=== PATIENT | male | born 1960 | race Caucasian/White ===

== ENCOUNTER 2024-04-21 21:30 | Inpatient (IN) | payer BC, SELFPAY ==
[2024-04-21] VITALS (32 sets, daily range): BP systolic 146–240; BP diastolic 77–141; BMI 24.7
[2024-04-21 17:46] LABS: % Basophils 0.6 % (0-2); % Eosinophils 2.7 % (0-6); % Immature Granulocytes 0.2 % (0-0.5); % Monocytes 8.1 % (1.7-9.3); % Neutrophils 61.4 % (42.2-75.2); Absolute Basophils 0.1 10^3/uL (0-0.2); Absolute Eosinophils 0.3 10^3/uL (0-0.7); Absolute Lymphocytes 2.7 10^3/uL (1.2-3.4); Absolute Monocytes 0.8 10^3/uL (0.1-0.6); Absolute Neutrophils 6.1 10^3/uL (1.4-6.5); Hematocrit 47.4 % (39.0-52.0); Mean Corp Hgb Conc. 35.9 g/dL (33.0-37.0); Mean Corpuscular Hgb 32.1 pg (27.0-31.0); Mean Corpuscular Volume 89.4 fL (80.0-94.0); Mean Platelet Volume 9.4 fL (7.4-10.4); Nucleated Red Blood Cells % 0 % (-); Platelet Count 300 10^3/uL (130-400); Red Cell Dist. Width 13.6 % (11.5-14.5)
[2024-04-21 18:04] LABS: ALT (SGPT) 26 U/L (0-50); AST (SGOT) 30 U/L (17-59); Albumin 4.8 g/dl (3.5-5.0); Alkaline Phosphatase 93 U/L (38-126); Blood Urea Nitrogen 12 mg/dl (9-20); Calcium 9.8 mg/dl (8.4-10.2); Carbon Dioxide 26 mmol/L (22-30); Chloride 106 mmol/L (98-107); Estimated Creatinine Clearance 81 ml/min; Glucose 96 mg/dl (70-99); Potassium 3.9 mmol/L (3.5-5.1); Sodium 140 mmol/L (135-145); Total Bilirubin 0.5 mg/dl (0.2-1.3); Total Protein 7.1 g/dl (6.3-8.2); eGFR > 60.00
--- NOTE | 2024-04-21 18:05 | ED.GENMED ---
History of Present Illness
General
Chief Complaint: Blood Pressure Problem
Source: patient
Exam Limitations: none
Time Seen by Provider: 04/21/24 17:59
History of Present Illness
History of Present Illness:
See MDM
Past History
Past History
ED Past Medical History: None
ED Past Surgical History: None
Social History
Tobacco: Smoker
Alcohol: None
Phy Exam
Physical Exam
Physical Exam:
See MDM
Scores
NIH Stroke Score
Level of Consciousness: 0 - Alert
LOC Questions: 0-Answers both correctly
LOC Commands: 0-Performs both correctly
Best Horizontal Gaze: 0-Normal
Visual Mancini: 0=Normal, no visual loss
Facial Palsy: 0=Normal, symmetrical
Motor - Right Arm: 1=Drift < 10 seconds
Motor - Left Arm: 0=No drift 10 seconds
Motor - Right Le-No drift 5 seconds
Motor - Left Le-No drift 5 seconds
Limb Ataxia: 0-Absent
Sensation: 0-Normal
Best Language: 0-No aphasia
Dysarthria: 1-Mild slurring
Extinction and Inattention: 0-No abnormality
Total Score:: 2
Course
Orders/Labs/Results
Orders:
Orders
04/21/24 17:39
CMP [Comprehensive Metabolic Panel] Urgent
Complete Blood Count/With Diff Urgent
04/21/24 17:45
EKG [Electrocardiogram (*1)] Urgent
Reason for Study: Tachycardia
EKG- Treatment ONCE
04/21/24 18:04
CT Head W/o Iv Contrast Urgent
Comment:
Reason For Exam: R side weakness
Labetalol HCl [Trandate] 10 mg IV NOW STA
04/21/24 19:40
Labetalol HCl [Trandate] 10 mg IV NOW STA
04/21/24 19:58
Aspirin Chewable [Low Strength Aspirin] 324 mg PO NOW STA
Clopidogrel Bisulfate [Plavix] 75 mg PO NOW STA
04/21/24 20:08
Nicardipine 40 mg/200 ml [Cardene] 40 mg in 200 ml IV NOW
Initial dose in mg/hr, then titrate:: 5
Titrate to keep:: BP < 180/105 mmHg
Titrate by mg/hr:: 2.5 mg/hr
Frequency of titrations (minutes):: 5-15 minutes
Maximum dose in mg/hr:: 15
Begin to taper infusion when:: Remained at goal for 2hrs
Taper by mg/hr:: 2.5 mg/hr
Frequency of taper (minutes) if patient maintains goal:: 15-30 minutes
Taper to off?: Yes
If infusion off & no longer maintaining goal:: Contact Provider
Abnormal Lab Results
04/21/24
17:39
MCH 32.1 H pg
(27.0-31.0)
Absolute Monos (auto) 0.8 H 10^3/uL
(0.1-0.6)
04/21/24 17:39
04/21/24 17:39
Vital Signs
Initial and Last Documented VS:
Initial Vital Signs
BP
221/141
04/21/24 17:31
Last Documented Vital Signs
Temp Pulse Resp BP Pulse Ox
98.3 F 67 16 209/110 95
04/21/24 17:33 04/21/24 20:01 04/21/24 20:01 04/21/24 20:01 04/21/24 20:01
MDM/Problems Addressed
Differential Diagnosis Includes:
HPI and MDM Narrative:
63-year-old male presenting for evaluation of right-sided weakness and tingling that occurred Wednesday. Patient states it only lasted for 3 hours. Patient was seen at urgent care and sent to the emergency department. On arrival, patient found to
be very hypertensive. Patient denies prior history of hypertension. He is not on medicines. He is an active smoker. Patient believes this is whitecoat syndrome. Although acknowledge that, I discussed that his blood pressure is probably too high
to be blamed on whitecoat syndrome. Will give dose of labetalol. He does have mild drift on the right with dysarthria as well. Given duration of symptoms, he is not a TNK candidate
Physical exam
General: Well appearing and non-toxic
HEENT: protecting airway
Neck: appears supple
CV: No evidence of cyanosis. Regular rate and rhythm
Resp: No accessory muscle use
Abd: Non-distended
Extremities: No deformities
Neuro: alert. Mild drift to the right Arm. Mild dysarthria
Psych: Normal affect
Skin: Intact
Problems Addressed including Acute and Chronic Conditions affecting care:
1. Hypertension
Acuity: acute
Prognosis: unstable
Details: Given the concern for hypertension emergency, will give dose of IV labetalol
2. CVA
Acuity: acute
Prognosis: unstable
Details: Given the mild drift on the right, will obtain CT head
Updates
CT consistent with multiple chronic and now with subacute strokes. Blood pressure still greater than 200/100 despite 2 doses of IV labetalol. Will place on nicardipine drip with concern for hypertension emergency. Patient given aspirin and plavix
Differential Diagnosis (but not limited to): Stroke, hypertension emergency, intracranial
Testing considered: CT angiogram
Drug therapy (if applicable): OTC meds, please see d/c instruction regarding Rx drugs
Amount and/or Complexity of Data Reviewed
Clinical info obtained from: Patient
External data reviewed: N/A
Labs I independently reviewed (but not limited to): WBC normal
Radiology: The CT scan was personally and independently reviewed. In addition, official CT report reviewed.
Pulse Ox: not hypoxic
EKG independently reviewed: Sinus rhythm, normal axis, no STEMI
Public Space Attendant: Sinus rhythm
Critical Care: The high probability of a clinically significant, sudden or life threatening deterioration of the neurovascular system(s) required my full and direct attention, intervention and personal management. The aggregate critical care time
was 33 minutes. This time is in addition to time spent performing reported procedures but includes the following:
[x] Data Review and interpretation
[x] Patient assessment and monitoring of vital signs
[x] Documentation
[x] Medication orders and management
Risk of Complication:
Social Determinants of health: Good social support
Discussed with other providers: Hospitalist
Escalation of Care includes Admit/Obs: Given the subacute strokes with uncontrolled blood pressure, will admit on nicardipine drip
Occasional wrong word or 'sound a like' substitutions may have occurred due to the inherent limitations of voice recognition software. Read the chart carefully and recognize, using context, where substitutions have occurred.
*Critical Care Note
Total Time (30-74mins, 75-104mins- exclusive of procedures): 33 min
ED Attending Note
-
Portions of this chart may have been created with voice recognition software.� Occasional wrong word or��sound alike� substitutions may have occurred due to the inherent limitations of voice recognition software.
Discharge Plan
Departure
Patient Disposition: Admit
Date of Disposition: 04/21/24
Time of Disposition: 20:13
Admit to: Telemetry
Presentation/result/management discussed w/ accepting MD/DO: Hospitalist
Discharge Problem:
Hypertensive emergency, Acute CVA (cerebrovascular accident)
Prescriptions:
No Action
No Current Medications
0
Interventions
Interventions:
*Risk Screen - Suicide Last Done: 04/21/24 17:33
*General Assessment Last Done: 04/21/24 17:33
*Neglect/Abuse Screening Last Done: 04/21/24 17:33
ED- Fall Risk Assessment Last Done: 04/21/24 17:33
*ED COVID-19 Vaccine History Last Done: 04/21/24 17:33
ED- Pulmonary Assessment Last Done: 04/21/24 17:39
ED- Neurological Assessment Last Done: 04/21/24 17:40
ED- Cardiac Assessment Last Done: 04/21/24 17:39
Discharge Date and Time
Print Language: TURKMEN
[2024-04-21] MEDS: TRANDATE 10 MG IV ×2 (18:08→19:42)
[2024-04-21] MEDS: LOW STRENGTH ASPIRIN 324 MG PO (20:25)
[2024-04-21] MEDS: PLAVIX 75 MG PO (20:25)
[2024-04-21] MEDS: CARDENE 200 IV (20:31)
--- NOTE | 2024-04-21 21:20 | HPS.HSE ---
Family Physician
-
Family Physician: Yina Nails
Chief Complaint
-
R sided weakness
History of Present Illness
Patient is a 63y M with PMH significant for hypertension who presents to ED complaining of right sided numbness / weakness x 3 days. Patient states that he woke Wednesday Am with pins and needles in the R arm. He felt that her had 'slept
funny' and waited for his symptoms to improve. He went to work and his co-workers expressed concern that he may have had a stroke. Patient notes that he had RUE clumsiness / ataxia and was 'limping'. He was seen at a [facility] and advised
that they could not address his symptoms / concerns - but patient did not present to a hospital / ED at that time. 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 Today at work his co-workers again encouraged him to seek
attention. He again went to an Urgent Care and this time an ambulance was called to bring him to the ED.
Patient complains of R arm and leg numbness and tingling. He complains of ataxia / clumsiness and mild weakness. He denies any headache, vision changes, etc.
He denies any prior history of similar symptoms.
Upon presentation to the ED, patient was noted to be markedly hypertensive with BP peak at 240/135.
Currently he states that his RUE feels somewhat improved from prior.
He notes that he has an annual physical and typically has to have his BP checked 'a few times' before it is 'OK'.
He is not on any current medications.
Medical History
Past Medical History
Past Medical History: Reports Other
Additional Past Medical History:
Hypertension
Past Surgical History: Reports Other
Additional Past Surgical History:
Dental Procedures
Social History
Tobacco: Smoker (Current every day smoker.)
Alcohol: Occasional
Drug: None
Family History
Family History: Other (Mother: Renal Cancer, HTN Father: Pancreatic Cancer, HTN Brother / Sister: HTN)
Allergies / Home Medications
Allergies reflects when Allergies were last updated in [facility].
Home Medications with original date entered in [facility]
Allergy/Medication List:
Allergies
Allergy/AdvReac Type Severity Reaction Status Date / Time
No Known Allergies Allergy Unverified 04/21/24 17:44
Home Medications
No Meds [No Current Medications] 04/21/24
Review of Systems
-
History Source: Patient
A 12 point ROS was completed and negative except as noted: Yes
Constitutional: Denies Fever or Chills
EENT: Denies Sore Throat
Respiratory: Denies Cough or Trouble Breathing
Cardiac: Denies Chest Pain or Palpitations
Abdomen/GI: Denies Abdominal Pain, Nausea, Vomiting or Diarrhea
: Denies Dysuria, Frequency or Flank Pain
Musculoskeletal: Denies Joint Pain or Edema
Neurological: Reports Weakness, Numbness and Other (Ataxia); Denies Dizzy or Headache
Psych: Denies Depression or Anxiety
Physical Exam
Vital Signs
Vital Signs
Temp Pulse Resp BP Pulse Ox
98.3 F 88 19 171/102 99
04/21/24 17:33 04/21/24 21:15 04/21/24 21:15 04/21/24 21:15 04/21/24 21:15
Physical Exam
General: Other (63y M in no acute distress. )
HEENT: Moist mucous membranes and PERRLA
Respiratory: Clear; No Wheezes, Rales or Rhonchi
Cardiac: S1/S2 and Regular Rhythm; No Murmur
GI: Soft, Non Tender, Non Distended and Normal Bowel Sounds
Musculoskeletal: No Clubbing, No Cyanosis and No Edema
Neuro: AO x 3 and Other (Weakness of the RUE and RLE compared to the L (3-4/5). Ataxia especially of the RUE. No evident sensory deficit. Facial features somewhat asymmetric, but smile is symmetric and tongue extends to midline.)
Laboratory Results
-
04/21/24 17:39
04/21/24 17:39
Laboratory Results
Total Bilirubin 0.5 mg/dl (0.2-1.3) 04/21/24 17:39
AST 30 U/L (17-59) 04/21/24 17:39
ALT 26 U/L (0-50) 04/21/24 17:39
Alkaline Phosphatase 93 U/L (38-126) 04/21/24 17:39
Troponin I Cancelled 04/21/24 20:50
Impression/Plan
-
A/P: Patient is a 63y M with no known PMH who presents to ED complaining of R sided weakness and ataxia x 3 days.
Subacute CVA
Hypertensive Emergency
Evidence for Multiple Prior CVAs
- Admit to ICU for further evaluation and treatment.
- Continue nicardipine and titrate as needed for improvement in BP.
- ASA / Plavix now and daily.
- Patient is well out window for consideration of thrombolytic therapy.
- Suspect that CVAs are BP mediated based on location / history / etc.
- Will likely require multidrug regimen for BP control.
- Neuro eval in the AM for additional recommendations.
- Check MRI, CUS, Echo, etc.
- Follow for changes in neurologic exam.
- Begin statin therapy. Check lipid panel, A1C, etc.
- PT / OT / PMR evaluations.
Tobacco Use Disorder
- Affects all aspects of care and certainly his risk for future CVA.
- Patient encouraged to stop smoking entirely.
DVT Prophylaxis: SCDs
Code Status: Full
[2024-04-21 21:55] LABS: Troponin I < 0.012 ng/ml
[2024-04-21 22:06] LABS: Urine Albumin Trace (Neg - Trace); Urine Bilirubin Negative (Negative); Urine Character Slightly Cloudy (Clear); Urine Color Yellow; Urine Glucose Negative (Negative); Urine Ketone Trace (Negative); Urine Leukocyte Trace (Negative); Urine Nitrite Negative (Negative); Urine Occult Blood Negative (Negative); Urine Urobilinogen Negative (Neg - 1+)
[2024-04-21 22:14] LABS: Urine Amorphous Seen; Urine Bacteria Many (Negative); Urine Red Blood Cell 0-2 /HPF (0-2)
--- NOTE | 2024-04-21 23:30 | PTCARENOTE ---
Pt arrived to ICU room 3371 from ER via stretcher at 2210. Received pt on Cardene drip at 5mg/hr. Pt A/O x4, pleasant and cooperative with care. Denies pain. NIHSS done, score = 3, see Stroke Neurocheck/NIHSS flowsheet for further details on
neurological assessment and NIHSS results. See nursing shift assessment flowsheet for full physical assessment details. SR 80s on monitor. SpO2 91-93% on RA. Admission database completed. Call mesa and personal items within reach.
[2024-04-22] VITALS (46 sets, daily range): BP systolic 128–195; BP diastolic 73–117; PULSE 90; O2SAT 94–95; BMI 24.2
[2024-04-22 04:37] LABS: % Basophils 0.6 % (0-2); % Eosinophils 2.2 % (0-6); % Immature Granulocytes 0.4 % (0-0.5); % Monocytes 9.6 % (1.7-9.3); % Neutrophils 66.2 % (42.2-75.2); Absolute Basophils 0.1 10^3/uL (0-0.2); Absolute Eosinophils 0.2 10^3/uL (0-0.7); Absolute Lymphocytes 2.3 10^3/uL (1.2-3.4); Absolute Monocytes 1.1 10^3/uL (0.1-0.6); Absolute Neutrophils 7.4 10^3/uL (1.4-6.5); Hematocrit 47.6 % (39.0-52.0); Hemoglobin 16.7 g/dL (13.0-18.0); Mean Corp Hgb Conc. 35.1 g/dL (33.0-37.0); Mean Corpuscular Hgb 32.4 pg (27.0-31.0); Mean Corpuscular Volume 92.4 fL (80.0-94.0); Mean Platelet Volume 9.6 fL (7.4-10.4); Nucleated Red Blood Cells % 0 % (-); Platelet Count 263 10^3/uL (130-400); Red Blood Cell Count 5.15 10^6/uL (4.70-6.10); Red Cell Dist. Width 13.3 % (11.5-14.5); White Blood Cell Count 11.1 10^3/uL (4.8-10.8)
--- NOTE | 2024-04-22 04:38 | PTCARENOTE ---
Physical and neurological assessments unchanged. Pt has been resting with eyes closed most of the night although states that he has not gotten much sleep. Cardene infusion stopped at approx 0100, BP has been 140s-160s systolic / 70s-80s diastolic
since then. SR 60s/SB 50s on monitor, as low as HR of 54. SpO2 96% on RA. Stroke packet provided, although not reviewed with pt this shift d/t pt stating he had been up since 4am and just wanted to go to sleep.
[2024-04-22 04:45] LABS: INR 1.12; PT 14.2 Sec (11.4-14.6)
[2024-04-22 04:46] LABS: APTT 33.7 Sec (23.4-35.0)
[2024-04-22 05:01] LABS: Blood Urea Nitrogen 10 mg/dl (9-20); Calcium 9.2 mg/dl (8.4-10.2); Carbon Dioxide 24 mmol/L (22-30); Chloride 106 mmol/L (98-107); Estimated Creatinine Clearance 104 ml/min; Glucose 107 mg/dl (70-99); HDL Cholesterol 42 mg/dl; LDL Cholesterol, Calculated 107 mg/dl; Potassium 3.5 mmol/L (3.5-5.1); Sodium 138 mmol/L (135-145); Total Cholesterol 168 mg/dl (50-199); Triglyceride 96 mg/dl (10-149); Very Low Density Lipoprotein 19 mg/dl (0-30); eGFR > 60.00
--- NOTE | 2024-04-22 06:25 | PTCARENOTE ---
Pt's BP in 190s, restarted Cardene drip at approx 0620 at 2.5mg/hr.
--- NOTE | 2024-04-22 07:33 | CON.INTV ---
Consultation
Consultation Request
Date/Time Consultation Requested: 04/22/2024-7:30 AM
Date/Time Consultation Performed: 04/22/2024-7:30 AM
Requesting Provider: Hospitalist
Performing Provider: Dr. Lan
Reason for Consultation: CVA and hypertensive emergency
Medical History
-
Chief Complaint: Slurred speech and weakness
History of Present Illness:
63-year-old male with a history of hypertension, smoker who presented with 3 days of right-sided numbness, weakness, and somewhat slurred speech felt to have CVA and noted to have severe hypertension-septic tank setter consulted for hypertensive
emergency/evolving CVA/critical care management 04/22/2024. He feels slightly improved but still has some dysarthria and right upper extremity weakness. He smokes daily just under a pack a day. He denies any shortness of breath at rest, productive
cough, chest pain, chest tightness, weakness, mopped assist, abdominal pain, nausea, vomiting, lower extremity swelling.
Past Medical History
Past Medical History: None (Hypertension. Cigarette smoker. Does not frequent physicians often-goes to urgent care when needed, last saw primary care over 3 years ago.)
Social History
Tobacco: Smoker ([id number])
Alcohol: Occasional
Drug: None
Occupational Exposures: No known asbestos exposure
Environmental Exposures: No known tuberculosis exposure
Family History
Family History: Other (Mother-renal cancer and hypertension. Father-pancreatic cancer and hypertension. Brother and sister with hypertension.)
Allergies / Home Medications
Allergies
Allergy/AdvReac Type Severity Reaction Status Date / Time
No Known Allergies Allergy Unverified 04/21/24 17:44
Home Medications
�Medication �Instructions �Recorded �Confirmed �Last Taken �Type
No Meds [No Current Medications] 04/21/24 04/21/24 Unknown History
Review of Systems
-
Unable to Obtain full review of systems at this time due to: Other (Per HPI)
Vitals / Labs / Diagnostic Testing
Vital Signs
Temp Pulse Resp BP Pulse Ox
98.0 F 61 18 195/93 94
04/21/24 22:20 04/22/24 06:17 04/22/24 06:17 04/22/24 06:17 04/22/24 06:17
Lab Data
04/22/24 04:28
04/22/24 04:23
Laboratory Results
04/22/24
04:23
PT 14.2
INR 1.12
APTT 33.7
Diagnostic Testing:
Physical Exam
-
Exam:
Well-nourished and well-developed in no apparent distress
HEENT-atraumatic, normocephalic
Neck-supple, no JVD, no bruit
Heart-regular rate and rhythm-no murmurs, rubs or gallops
Chest-clear to auscultation, no wheezes, crackles
Back-no tenderness
Abdomen-soft, nontender, nondistended, no hepatosplenomegaly
Extremities-no cyanosis, clubbing, edema and good peripheral pulses
Integument-intact, no rashes, lesions or ecchymosis
Neurologically alert and oriented, mild right upper extremity weakness and mild dysarthria
Assessment
-
63-year-old male with a history of hypertension, smoker who presented with 3 days of right-sided numbness, weakness, and somewhat slurred speech felt to have CVA and noted to have severe hypertension-septic tank setter consulted for hypertensive
emergency/evolving CVA/critical care management 04/22/2024.
ZMR-[id number]-fguuvcdn over 3 days
Hypertensive emergency
Tobacco use disorder
Mild leukocytosis-WBC 11
Mild hyperglycemia
Conditions present prior to admission:
Hypertension.
Cigarette smoker.
Does not frequent physicians often-goes to urgent care when needed, last saw primary care over 3 years ago.
Plan
Patient will be admitted to medical intensive care
Supplemental oxygen if needed
Monitor for end organ effect of severe hypertension
Hydralazine as needed
Labetalol as needed
Begin nicardipine drip-attempt to wean
Consider Nephrology consultation if hypertension persists
Consider workup of secondary causes including renal vascular/primary hyperaldosteronism/Ellis's/pheochromocytoma/etc. if hypertension is difficult to control
Subacute CVA noted
Monitor blood pressure closely
Neurology evaluation
CT head summarized below
Check MRI head/MRA head and neck
Neurochecks
Goal systolic blood pressure less than 180, diastolic BP less than 105
Check lipid panel
Check echocardiogram
Check carotid circulation
Atorvastatin 80 mg daily if tolerated
Monitor blood sugar-maintain blood sugar as needed and keep between 140-180
Speech therapy/occupational/physical therapy evaluation
Smoking cessation counseling provided
DVT prophylaxis
Early nutrition
Early mobilization
Outpatient pulmonary evaluation recommended-ongoing smoking cessation counseling, yearly low-dose lung cancer screening CT, PFTs, possible inhalers
Critical care statement: A total of 50 minutes of critical care time was provided for this patient today. This includes management of unstable vital signs, evaluation of the patient at bedside, reviewing the patient's pertinent medical records
including radiographs, microbiology, laboratory evaluations, and discussion with primary team, consultants, pharmacy, nutrition, physical therapy, case management, charge nurse, critical care nursing, and respiratory therapy.
Diagnostic data:
Chest x-ray 04/22/2024-NAD
CT head 04/21/2024-no acute intracranial hemorrhage, chronic microvascular white matter ischemic disease, multiple chronic lacunar infarcts, right brigida age indeterminate but likely subacute measuring 7 mm
Data Reviewed
-
EKG: Report reviewed by me
Radiology: Report reviewed by me
CT Scan: Report reviewed by me
Labs: Labs reviewed by me
Old Records: Reviewed
Critical Care Time (in minutes): 50
--- NOTE | 2024-04-22 08:04 | W.PN.HOSP.TC ---
Today's Communication/Plan
-
Discontinue nicardipine
Start Procardia, HCTZ
PT/OT
Neurology consult
Assessment / Plan
Assessment / Plan
Gen-AAOx3, NAD
HEENT-NC, AT, anicteric, clear oral mm
Neck-supple
CV-reg, no M, +S1/S2
Lungs-clear B/L
Abd-soft, NT, ND
Ext-no edema
Musculoskeletal-no cyanosis, clubbing
Skin-warm and dry, well tanned skin
Neuro-4+ out of 5 right-sided motor strength, right upper extremity dysmetria on [id number] testing
Psych-calm, cooperative
Hypertensive emergency - possible subacute infarction in the right brigida on CT scan. CT also shows multiple chronic right-sided lacunar infarcts, chronic microvascular white matter ischemic disease.
Not on blood pressure meds at home. Has not seen his physician in 3 years. Does not check his blood pressures at home either.
Currently on nicardipine drip 2.5 mg an hour. Will discontinue and start Procardia XL 30 mg daily, HCTZ 25 mg daily.
Extensive discussion with patient regarding strict blood pressure control moving forward, close outpatient follow-up with his primary care doctor, measuring his blood pressures at home closely and monitoring with intensive lifestyle changes
including dietary modification and exercise. We discussed the importance of blood pressure control for cardiovascular risk reduction including prevention of further strokes, heart disease, kidney disease and eye disease.
Await brain MRI. Consult neurology. PT/OT. Echocardiogram ordered.
Started on atorvastatin, aspirin, Plavix last night.
LDL 107, total cholesterol 168, HDL 42.
Essential hypertension -untreated. See above.
Tobacco dependence
Full code
Anticipated Discharge: > 48 hours
Subjective/Interval History
-
Date of Service: April 22, 2024
Patient seen and examined. Still with right-sided symptoms, weakness and numbness. Denies headache.
Objective Data
-
Labs:
Laboratory Results
04/22/24 04/22/24
04:23 04:28
WBC 11.1 H
Hgb 16.7
Hct 47.6
Plt Count 263
PT 14.2
INR 1.12
APTT 33.7
Sodium 138
Potassium 3.5
Chloride 106
Carbon Dioxide 24
BUN 10
Creatinine 0.7
Glucose 107 H
Calcium 9.2
Vital Signs:
Vital Signs
Temp Pulse Resp BP Pulse Ox
98.0 F 61 18 195/93 94
04/21/24 22:20 04/22/24 06:17 04/22/24 06:17 04/22/24 06:17 04/22/24 06:17
I&O
04/21/24 04/22/24 04/23/24
06:59 06:59 06:59
Intake Total 56.25 / 56.25
Output Total 400 / 400
Balance -343.75 / -343.75
Review of Systems
-
History Source: Patient
All other systems: Reviewed and negative
[2024-04-22 08:14] LABS: Glycohemoglobin (HgbA1c) 5.6 % (4.0-5.6)
[2024-04-22] MEDS: PROCARDIA XL (EXTENDED RELEASE) 30 MG PO (08:16)
[2024-04-22] MEDS: ORETIC 25 MG PO (08:16)
[2024-04-22] MEDS: KCL 40 MEQ PO (08:17)
[2024-04-22] MEDS: PLAVIX 75 MG PO (08:17)
[2024-04-22] MEDS: LOW STRENGTH ASPIRIN 81 MG PO (08:17)
--- NOTE | 2024-04-22 08:46 | PTCARENOTE ---
Rec'd pt at 0700. Pt AAOx3, mild facial droop with mild slurred speech. Follows commands, KOHLER with equal strength. Pt states that the 'pins and needles and weakness' on right right side has subsided. NIHSS-2. Monitor SR. Cardene gtts infusing at
2.5mg/hr, PO BP meds ordered and given in order to dc Cardene gtts. Pt updated on plan of care, verbalized understanding. Lungs CTA. +BS, abd soft/nt. Ate 100% diet. Voiding yellow urine via urinal. Pt resting comfortably in bed at this time.
--- NOTE | 2024-04-22 14:29 | PTCARENOTE ---
~1200 pt to MRI via wheelchair on monitor. Tolerated test well. Pt sitting OOB in chair at this time, gait slightly unsteady. Ate 100% lunch. Neuro assessment unchanged.
--- NOTE | 2024-04-22 15:03 | PTOTSP ---
SPEECH THERAPY SPEECH/LANGUAGE/COGNITIVE COMMUNICATION AND SWALLOW EVALUATION:
Patient exhibits clinical signs of oropharyngeal dysphagia, likely acutely related to subacute infarct in Right brigida. Patient appears to be tolerating Regular texture diet and thin liquids without signs of aspiration at this time, though pt endorsed
signs of aspiration with increased size/rate of intake of liquids. Patient remains at risk for aspiration given subacute CVA in brigida. Recommend continue Regular texture diet, thin liquids with aspiration precautions in place including: Upright
positioning; Small single sips/bites; Slow rate of intake; Eat only when alert; Limit distractions. Close monitoring for signs of aspiration; D/c oral diet if any signs/symptoms of aspiration or decline in mental or respiratory status. Recommend
aggressive oral care 3x/day and increased mobility as able/tolerated to reduce risk for nosocomial infection. Medications whole with liquid, one at a time. Should patient exhibit signs concerning for aspiration, consider VSE to further assess
patient's swallow function. Speech therapy to follow, assess diet tolerance and modify as appropriate, monitor labs/CXR/temperature, determine indication for instrumental assessment as warranted, continue to provide education regarding aspiration
risks/precautions, and continue to provide diagnostic swallow therapy as appropriate.
Patient exhibits mild dysarthria with associated mildly reduced articulatory accuracy with grossly intact intelligibility. Cognitive communication skills appeared to be grossly WFL, though question impaired judgement which may be at patient's
baseline level of functioning. Voice, expressive language, and receptive language skills appeared to be WFL. Speech therapy is indicated at the acute care level. Speech therapy to follow.
RECOMMEND:
1) Regular texture diet, thin liquids with aspiration precautions in place
2) Aspiration precautions: Upright positioning; Small single sips/bites; Slow rate of intake; Eat only when alert; Limit distractions. Close monitoring for signs of aspiration; D/c oral diet if any signs/symptoms of aspiration or decline in mental
or respiratory status. Recommend aggressive oral care 3x/day and increased mobility as able/tolerated to reduce risk for nosocomial infection
3) Medications whole with liquid, one at a time
4) Should patient exhibit signs concerning for aspiration, consider VSE to further assess patient's swallow function
5) Speech therapy to follow for speech and swallow therapy
[2024-04-22] MEDS: LIPITOR 40 MG PO (17:10)
--- NOTE | 2024-04-22 17:16 | PTCARENOTE ---
No changes in assessment, pt remains OOB in chair watching tv at this time.
--- NOTE | 2024-04-22 20:13 | PTCARENOTE ---
Assumed care of pt at 1900. Pt is A/O x4 but has an odd affect and is almost child-like at times with how he interacts, as if he has an intellectual disability to some degree. At start of shift pt was found to be grossly incontinent with a saturated
brief and pad--when asked if he knows when he has to urinate, pt stated 'yeah'. Unsure why patient did not verbalize to staff that he was wet. Pt also laughs at inappropriate times about things that are not meant to be funny, such as assessing his
pupils or his muscle strength. NIHSS done, pt scored a 2 for mild slurring and mild facial droop. Pt endorses that his right side feels weaker but when assessing muscle strength both sides seem equal to each other. See Stroke Neurocheck/NIHSS
flowsheet for full neuro assessment details. Pt is otherwise pleasant and cooperative with care and able to follow commands. Physical assessment completed, see nursing shift assessment flowsheet for full details. SR 60s-70s on monitor. Condom cath
placed on patient to help with urinary incontinence. Call mesa and personal items within reach. Bed alarm activated.
--- NOTE | 2024-04-22 21:29 | W.PN.UPDATE ---
Update Note
Progress Note Update
Updated neurologist Dr. Vega of MRI results. Recommendations received maintain SBP 120-160. Patient currently does not have any new sign/symptoms of stroke or headache.
--- NOTE | 2024-04-22 23:49 | CON.NEURO4 ---
Consultation - Neurology 4
-
CONSULTING PHYSICIAN: Gary Swift MD (Neurology)
REFERRING PHYSICIAN: Hospitalist
DICTATED BY: Gary Swift MD
DATE/TIME OF REQUEST: 04/21/2024
DATE/TIME OF CONSULTATION: 04/22/2024 1030
Reason for Consultation: Weakness
History of Present Illness:
This is a 63 year old right handed male who was admitted to the hospital with (chief complaint) of right sided weakness. He is a smoker gives a h/o uncontrolled HTN who presents to ED complaining of right sided numbness / weakness x 3
days(Wednesday). Patient states that he woke Wednesday morning with pins and needles in the R arm. He felt that he had 'slept on his arm ' and waited for his symptoms to improve. He went to work and his co-workers expressed concern that he may
have had a stroke. Patient notes that he had RUE clumsiness / ataxia and was 'limping'. He was seen at a [facility] and advised that they could not address his symptoms / concerns - but patient did not present to a hospital / ED at that time.
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 Yesterday at work his co-workers again adviced him to seek attention. He again went to an Urgent Care and this time an ambulance was called to bring him to the ED.
Patient complains of R arm and leg numbness and tingling. He complains of ataxia / clumsiness and mild weakness. He denies any headache, vision changes, speech impediment, dizziness, near syncope.
He denies any prior history of similar symptoms.
Upon presentation to the ED, patient was noted to be markedly hypertensive with BP peak at 240/135.
Currently he states that his RUE feels somewhat improved from prior.
He notes that he has an annual physical and typically has to have his BP checked 'a few times' before it is 'OK'.
He is not on any medications.
At the time of my exam pat is awake alert oriented with normal speech and minimal right sided weakness. He is on
Past Medical History: HTN
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
Family History: HTN
Social History: Smoker lives at home
Allergies: NKA
Home Medications: None
Review of Symptoms:
Patient denies any fever, headache, chest pain, shortness of breath, GI or symptoms.
�Per the HPI.�All systems are reviewed negative except above.
Vital Signs:
The patient has a
Temp Pulse Resp BP Pulse Ox
98.0 F 61 18 195/93 94
Physical Exam:
The patient is afebrile, heart sounds S1 and S2 are (regular / irregular), and chest is clear to auscultation bilaterally.
- If not clear, describe.
NIH Stroke Scale (if applicable):
I performed the NIH stroke scale on the patient on (date & time). The patient scored ( ) points on the NIH stroke scale assessment, which were assigned as follows:
Neurologic Examination:
The patient is awake, alert and oriented x 3. (He/She) is able to follow commands and answer questions appropriately. There is no aphasia or dysarthria. On cranial nerve assessment, pupils are 3 mm bilateral, round and reactive to light and
accommodation. Visual graham are full. Extraocular movements are intact. Facial sensations are intact and bilaterally symmetrical, there is no facial asymmetry. Hearing is intact bilaterally to normal conversation volume. Tongue palate and uvula
are midline. Sternocleidomastoid strengths are full bilaterally.
Motor strengths are 5/5 bilateral upper and lower extremities. There is right pronator drift. No involuntary movement noted.
Deep tendon reflexes are + bilateral upper and lower extremities and Right Babinski .
Sensations of pain, touch, temperature and vibration are intact and bilaterally symmetrical. There was no extinction noted on double simultaneous stimulation. Coordination is intact by finger to nose bilaterally. Rombergs sways. Gait is unsteady
Lab Results: Addendum
Neuro Imaging: MRI Brain revealed
1. 9 mm ACUTE ISCHEMIC INFARCT in the LEFT FRONTAL LOBE SANTIAGO RADIATA.
2. 5 mm acute to subacute ischemic infarct in the anterior right basal ganglia.
3. 4.8 mm and 1.3 cm subacute ischemic infarcts in the left santiago radiata.
4. Small chronic ischemic infarcts in the right santiago radiata, thalami, and brigida.
5. Moderate white matter leukoaraiosis in both cerebral hemispheres.
6. Mild cerebral and cerebellar volume loss.
7. Moderate amount of minute intraparenchymal microhemorrhages in the brainstem and cerebellum consistent with HYPERTENSIVE MICROANGIOPATHY.
MRA
1. Mild atherosclerotic plaque in both proximal internal carotid arteries causing less than 25% diameter stenosis.
2. 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
3. 70% diameter stenosis at the origin of the Right Vertebral artery.
4. Mild atherosclerotic plaque in both intracranial internal carotid arteries causing less than 25% diameter stenosis.
5. Mild hypoplasia of the A1 segment of the right anterior cerebral artery
Impression:
Mr. VAN LOERA is a 63 year old M who has presented to the hospital with (symptoms/chief complaint) of right sided weakness secondary to left MCA infarction in the left frontal lobe with hypertensive crisis
Patient has the following risk factors for their symptoms: Uncontrolled HTN, Smoker
Recommendations:
1. BP control: Keep systole 120-160/Diastolic 80-90
2. Ecasa 81
3. Plavix 75
4. High intensity Statin:Lipitor 80mg
5. PT/OT
6. Echocardiogram
7. MRI/MRA brain
8. Stop smoking
Discussed patient care with: Hospitalist
Vital Signs and Labs
-
Vital Signs and Labs:
Vital Signs
Temp Pulse Resp BP Pulse Ox
36.8 C 63 20 171/81 96
04/22/24 23:02 04/22/24 22:30 04/22/24 22:30 04/22/24 22:30 04/22/24 22:30
Lab Results
04/22/24 04:28
04/22/24 04:23
PT 14.2 Sec (11.4-14.6) 04/22/24 04:23
INR 1.12 04/22/24 04:23
APTT 33.7 Sec (23.4-35.0) 04/22/24 04:23
Sodium 138 mmol/L (135-145) 04/22/24 04:23
Potassium 3.5 mmol/L (3.5-5.1) 04/22/24 04:23
BUN 10 mg/dl (9-20) 04/22/24 04:23
Glucose 107 mg/dl (70-99) H 04/22/24 04:23
Calcium 9.2 mg/dl (8.4-10.2) 04/22/24 04:23
LDL Cholesterol, Calc 107 mg/dl 04/22/24 04:23
Medications
-
Active Medications
Generic Name Dose Route Start Last Admin
Trade Name Freq PRN Reason Stop Dose Admin
Acetaminophen 650 mg 04/21/24 22:26
Acetaminophen 650 Mg Rectal Suppository RECTAL 05/19/24 22:25
Q4HPRN PRN
COLON, mild pain, or temp >100.4F
Acetaminophen 650 mg 04/21/24 22:26
Acetaminophen 325 Mg Tablet PO 05/19/24 22:25
Q4HPRN PRN
COLON, mild pain, or temp >100.4F
Aspirin 81 mg 04/22/24 08:00 04/22/24 08:17
Aspirin 81 Mg Chewable Tablet PO 05/20/24 07:59 81 mg
DAILY MICHAEL Administration
Atorvastatin Calcium 40 mg 04/22/24 18:00 04/22/24 17:10
Atorvastatin (Lipitor) 40 Mg Tablet PO 05/20/24 17:59 40 mg
QPM MICHAEL Administration
Hydrochlorothiazide 25 mg 04/22/24 09:00 04/22/24 08:16
Hydrochlorothiazide 25 Mg Tablet PO 05/20/24 08:59 25 mg
DAILY MICHAEL Administration
Nicardipine/Sodium Chloride 40 mg in 200 mls @ 0 mls/hr 04/22/24 22:45
Cardene IV
PER PROTOCOL MICHAEL
Protocol
Per Protocol
Nifedipine 30 mg 04/22/24 09:00 04/22/24 08:16
Nifedipine 30 Mg Extended Release Tablet PO 05/20/24 08:59 30 mg
DAILY MICHAEL Administration
Sodium Chloride 0 flush 04/21/24 23:00
Sodium Chloride 0.9% (Flush) Syringe IV 05/19/24 22:59
PER PROTOCOL MICHAEL
Home Medications
�Medication �Instructions �Recorded
No Meds [No Current Medications] 04/21/24
[2024-04-23] VITALS (60 sets, daily range): BP systolic 137–179; BP diastolic 64–107; PULSE 100–128; O2SAT 95; BMI 23.6; BMI 23.7
[2024-04-23] MEDS: CARDENE 200 IV ×3 (00:18→08:05)
--- NOTE | 2024-04-23 00:26 | PTCARENOTE ---
Physical assessment and neurological assessments unchanged. After discussing results of MRI with ICU RIGGING SLINGER, she reached out to both restaurant bartender and neurologist. Plan going forward to keep pt's BP between 120-160. Pt was in high 160s-170s, discussed
with ICU RIGGING SLINGER, pt restarted on Cardene infusion shortly after 2237, titrating for aforementioned BP goal, pt currently on 7.5mg/hr. SR 70s-80s on monitor, SpO2 96% on RA.
--- NOTE | 2024-04-23 04:22 | PTCARENOTE ---
Physical and neurological assessments unchanged. Continues on Cardene infusion, now at 10mg/hr. SR 80s-90s on monitor. Bed alarm activated.
[2024-04-23 04:28] LABS: Hematocrit 47.6 % (39.0-52.0); Hemoglobin 17.2 g/dL (13.0-18.0); Mean Corp Hgb Conc. 36.1 g/dL (33.0-37.0); Mean Corpuscular Hgb 31.9 pg (27.0-31.0); Mean Corpuscular Volume 88.3 fL (80.0-94.0); Mean Platelet Volume 9.6 fL (7.4-10.4); Platelet Count 322 10^3/uL (130-400); Red Blood Cell Count 5.39 10^6/uL (4.70-6.10); Red Cell Dist. Width 13.4 % (11.5-14.5); White Blood Cell Count 11.9 10^3/uL (4.8-10.8)
[2024-04-23 04:41] LABS: Blood Urea Nitrogen 16 mg/dl (9-20); Calcium 9.8 mg/dl (8.4-10.2); Carbon Dioxide 22 mmol/L (22-30); Chloride 105 mmol/L (98-107); Estimated Creatinine Clearance 81 ml/min; Glucose 128 mg/dl (70-99); Magnesium 2.1 mg/dl (1.6-2.3); Potassium 3.9 mmol/L (3.5-5.1); Sodium 135 mmol/L (135-145); eGFR > 60.00
[2024-04-23] MEDS: ORETIC 25 MG PO (08:02)
[2024-04-23] MEDS: PROCARDIA XL (EXTENDED RELEASE) 30 MG PO ×2 (08:02→09:27)
[2024-04-23] MEDS: LOW STRENGTH ASPIRIN 81 MG PO (08:10)
--- NOTE | 2024-04-23 09:13 | W.PN.HOSP.TC ---
Today's Communication/Plan
-
Increase Procardia
Assessment / Plan
Assessment / Plan
Gen-AAOx3, NAD
HEENT-NC, AT, anicteric, clear oral mm
Neck-supple
CV-reg, no M, +S1/S2
Lungs-clear B/L
Abd-soft, NT, ND
Ext-no edema
Musculoskeletal-no cyanosis, clubbing
Skin-warm and dry, well tanned skin
Neuro-4+ out of 5 right-sided motor strength, right upper extremity dysmetria on [id number] testing
Psych-calm, cooperative
Hypertensive emergency -in the setting of acute ischemic stroke. Blood pressure much improved, currently on nicardipine 10 mg/hour, Procardia XL 30 mg daily, HCTZ 25 mg daily. Nicardipine drip resumed last evening. Discussed with nursing, will
increase Procardia to 60 mg daily with goal of titrating off nicardipine drip. Once off nicardipine drip can transfer to telemetry.
My suspicion is that patient has a longstanding history of uncontrolled and untreated hypertension. Was not on any medications for blood pressure prior to admission. Has not seen his primary care doctor in years.
Acute ischemic stroke -left frontal lobe, 9 mm. Confirmed on brain MRI. In addition, 5 mm acute to subacute ischemic stroke in the anterior right basal daily. 4.8 mm and 1.3 cm subacute ischemic infarcts in the left santiago radiata. Small chronic
ischemic infarcts in the right santiago radiata, thalami, brigida. Moderate white matter leukoaraiosis in both cerebral hemispheres. Mild diffuse cerebral and cerebellar volume loss. Small to moderate number of tiny intraparenchymal microhemorrhages
in the brainstem and cerebellum consistent with hypertensive microangiopathy.
MRA of head and neck shows mild atherosclerotic plaque in both intracranial internal carotid arteries causing less than 25% diameter stenosis, mild hypoplasia of the A1 segment of the right anterior cerebral artery, 70% diameter stenosis at the
origin of the right vertebral artery.
Continue aspirin, atorvastatin. LDL 107, total cholesterol 168, triglycerides 96, HDL 42.
Echocardiogram pending.
Essential hypertension -untreated. See above.
Tobacco dependence -smoking cessation advised.
Full code
Dispo -anticipate discharge to acute rehab when medically stable. Discussed with patient and he is agreeable.
Anticipated Discharge: 24 - 48 hours
Subjective/Interval History
-
Date of Service: April 23, 2024
Patient seen and examined. No complaints.
Objective Data
-
Labs:
Laboratory Results
04/23/24
04:00
WBC 11.9 H
Hgb 17.2
Hct 47.6
Plt Count 322 D
Sodium 135
Potassium 3.9
Chloride 105
Carbon Dioxide 22
BUN 16
Creatinine 0.9
Glucose 128 H
Calcium 9.8
Vital Signs:
Vital Signs
Temp Pulse Resp BP Pulse Ox
98.7 F 89 20 155/74 94
04/23/24 07:00 04/23/24 07:30 04/23/24 07:30 04/23/24 07:30 04/23/24 07:30
I&O
04/22/24 04/23/24 04/24/24
06:59 06:59 06:59
Intake Total 56.25 / 68.75 976.25 / 976.25
Output Total 400 / 400 500 / 500
Balance -343.75 / -331.25 476.25 / 476.25
Review of Systems
-
History Source: Patient
All other systems: Reviewed and negative
--- NOTE | 2024-04-23 09:24 | W.PN.INTV ---
Today's Communication / Plan
Recommendations
BP control
Cardene wean
Neurology follow-up
Neurochecks continue
Assessment
-
63-year-old male with a history of hypertension, smoker who presented with 3 days of right-sided numbness, weakness, and somewhat slurred speech felt to have CVA and noted to have severe hypertension-salmon troll fisher consulted for hypertensive
emergency/evolving CVA/critical care management 04/22/2024.
WAJ-[id number]-[id number] over 3 days
Hypertensive emergency
Tobacco use disorder
Mild leukocytosis-WBC 11
Mild hyperglycemia
Conditions present prior to admission:
Hypertension.
Cigarette smoker.
Does not frequent physicians often-goes to urgent care when needed, last saw primary care over 3 years ago.
Plan
Remains critically ill with subacute CVAs, difficult to control hypertension on Cardene and microhemorrhages intracranially
Supplemental oxygen if needed
Aspiration precautions
Incentive spirometry
Nebulizers if needed-currently not bronchospastic
Monitor for end organ effect of severe hypertension
Nicardipine continues-attempt to wean
Nifedipine orally initiated
Hydrochlorothiazide orally initiated
Hydralazine as needed
Labetalol as needed
Consider Nephrology consultation if hypertension persists
Consider workup of secondary causes including renal vascular/primary hyperaldosteronism/Ellis's/pheochromocytoma/etc. if hypertension is difficult to control
Subacute CVA noted
Monitor blood pressure closely
Neurology evaluation
CT head summarized below
Brain MRI/MRA 04/22/2024-mild atherosclerotic plaques both internal carotid arteries causing less than 25% stenosis, mild hypoplasia of A1 segment of right anterior cerebral artery, no MRA evidence for large vessel arterial stenosis, multiple small
chronic ischemic infarcts in the santiago radiata, thalami and right brigida
Brain MRI 04/22/24-9 mm acute ischemic infarct in the left frontal lobe santiago radiata, 5 mm acute to subacute ischemic infarct right anterior basal ganglia, 4.8 mm and 1.3 cm subacute ischemic infarct in the left santiago radiata, small chronic
ischemic infarct right santiago radiata, thalami and brigida, moderate white matter leukoaraiosis in both cerebral hemispheres, mild diffuse cerebral and cerebellar volume loss, small to moderate number of tiny intraparenchymal microhemorrhages in the
brainstem and cerebellum consistent with hypertensive microangiopathy
Neurology following-notified of results
Repeat imaging per neurology
Neurochecks continue
Goal systolic blood pressure less than 180, diastolic BP less than 105
Lipid panel-triglycerides 96, total cholesterol 168, LDL 107, HDL 42
Echocardiogram pending
Carotid circulation on MRA without significant stenosis
Anticoagulants per neurology-currently on aspirin, Plavix discontinued
Atorvastatin 80 mg daily if tolerated
Monitor blood sugar-maintain blood sugar as needed and keep between 140-180
Speech therapy/occupational/physical therapy evaluation
Smoking cessation counseling provided
DVT prophylaxis
Early nutrition
Early mobilization
Outpatient pulmonary evaluation recommended-ongoing smoking cessation counseling, yearly low-dose lung cancer screening CT, PFTs, possible inhalers
Critical care statement: A total of 40 minutes of critical care time was provided for this patient today. This includes management of unstable vital signs, evaluation of the patient at bedside, reviewing the patient's pertinent medical records
including radiographs, Cardene drip management, microbiology, laboratory evaluations, and discussion with primary team, consultants, pharmacy, nutrition, physical therapy, case management, charge nurse, critical care nursing, and respiratory
therapy.
Diagnostic data:
Chest x-ray 04/22/2024-NAD
CT head 04/21/2024-no acute intracranial hemorrhage, chronic microvascular white matter ischemic disease, multiple chronic lacunar infarcts, right brigida age indeterminate but likely subacute measuring 7 mm
Subjective Dataa
Subjective Data
Date of Service:
Date of Service: April 23, 2024
Chief Complaint: Copy Center Associate Follow Up and Pulmonary Follow Up
Subjective:
Feels about the same, speech improved, right upper extremity strength also slightly improved, no complaints of shortness of breath, chest pain, abdominal pain
Review of Systems
General: Other (Per HPI)
Objective Data
Data Reviewed
Vital Signs / I&O / Oxygen:
Vital Signs
Temp Pulse Resp BP Pulse Ox
98.7 F 89 20 155/74 94
04/23/24 07:00 04/23/24 07:30 04/23/24 07:30 04/23/24 07:30 04/23/24 07:30
Intake and Output
04/22/24 04/23/24 04/24/24
06:59 06:59 06:59
Intake Total 56.25 / 68.75 976.25 / 976.25
Output Total 400 / 400 500 / 500
Balance -343.75 / -331.25 476.25 / 476.25
SaO2 94
Physical Exam
General: Respiratory Distress (n) and Comfortable
HEENT: Normocephalic, Anicteric and Moist Mucous Membranes
Cardiovascular: Regular Rhythm
Respiratory: Wheeze (n), Crackles (n), Rhonchi (n), Non-Labored Respirations, Accessory Resp Muscle Use (n) and Stridor (n)
GI: Soft, Non Distended and Non Tender
Neurology: Awake, Alert and No Motor Deficits
Skin: Warm, Good Color, Cyanosis (n), Jaundice (n) and Rash (n)
Labs/Micro/Reports
Lab Data
04/23/24 04:00
04/23/24 04:00
--- NOTE | 2024-04-23 10:38 | PTCARENOTE ---
Rec'd pt at 0700. Pt AAOx3, KOHLER, NIHSS-2 for mild slurred speech and facial droop. Pt forgetful to events/situation. Pt asking when he is going home, explained to pt that his blood pressure needs to be under better control and he needs to be off of
IV Cardene. Pt laughing and states 'lets just say that my blood pressure is high, I'm ok with that'. Explained to pt that he is here for a stroke and unmanaged HTN. Pt then stated 'Did I have a stroke?'. Reviewed plan of care with pt and importance
of keeping blood pressure managed. Pt needs reinforcement on education. Pt OOB to chair, chair alarm in place, pt impulsive and attempts to get up without calling for help. Call mesa within reach. Additional PO BP med given, ~1000-Cardene gtts off.
[2024-04-23] MEDS: LIPITOR 40 MG PO (17:09)
--- NOTE | 2024-04-23 18:29 | PTCARENOTE ---
Pt OOB in chair throughout shift, assisted back to bed after dinner. Gait slightly unsteady.
--- NOTE | 2024-04-23 20:52 | PTCARENOTE ---
Assumed care of pt at 1900. Pt is A/O x4, periods of forgetfulness. Pt still with slurred speech but affect is less childlike/more appropriate than last night. Pt states the weak feeling he has had in his right arm has subsided. NIHSS done, see
Stroke/Neuro Check/NIHSS flowsheet for full neuro assessment details. Physical assessment completed, see nursing shift assessment flowsheet for full details. SR 80s on monitor, spot checking SpO2, 95% on RA. Pt is currently telemetry LOC. Call mesa
and personal items within reach. Bed alarm activated.
--- NOTE | 2024-04-23 21:45 | PTCARENOTE ---
Pt being transferred to [facility], room 419-2. Report called to EUGENIE Mak.
--- NOTE | 2024-04-23 22:15 | PTCARENOTE ---
Pt transferred from ICU. Pt ambulated into room with assistance. Pt AAOX3, forgetful, NIH 2, bed alarm applied. Pt oriented to unit, call mesa within reach, bed in lowest position. Will continue with current plan.
[2024-04-24] VITALS (7 sets, daily range): BP systolic 147–183; BP diastolic 84–110; PULSE 87; O2SAT 98; BMI 23.6
--- NOTE | 2024-04-24 08:08 | W.PN.NEURO.1 ---
Addendum entered and electronically signed by Jamison Del Valle MD 04/24/24 14:30:
I saw and evaluated the patient I reviewed the note by Shima Emery agree to find the following comments:
63-year-old man with longstanding uncontrolled hypertension presenting the hospital with right-sided weakness and slurred speech has been found to have bilateral acute multi territory ischemic strokes had significantly elevated blood pressure to the
220s systolic on admission.
Neurologic examination significant for some right arm drift and hand coordination along with mild ataxia in the right arm
Brain MRI reviewed along with MRA of the head and neck there are bilateral acute infarcts no significant intracranial occlusions or stenosis in the MCA arteries
Assessment: Stroke etiology is most likely atheroembolic from uncontrolled hypertension, less likely given the clinical context of years of uncontrolled hypertension would be a cardioembolic stroke or atheroembolic stroke from aorta.
Recommendations
-Will pursue aspirin monotherapy rather than DAPT because a couple of small microhemorrhages in the brain which are due to chronic uncontrolled hypertension
-Pursue slow resumption of normotension would not aggressively normalize blood pressure given years of longstanding hypertension
-Continue statin
-Neurologic checks NIH stroke scales
-PT OT evaluations PMNR evaluations
-Would pursue short-term cardiac monitoring but if this is negative I would not pursue implanted Linq as suspicion for occult arrhythmia is low given clinical context of longstanding hypertension
Original Note:
Documented by User: Shima Castrejon NP 04/24/24 12:10
Today's Communication / Plan
-
.
Neuro Assessment/Plan
Assessment
This is a 63-year-old right-handed male who presented to on 04/21/24 with report of three days of right-sided numbness/weakness/incoordination and slurred speech. CT head was obtained on arrival and demonstrated multiple chronic ischemic infarcts
but no acute findings. He was not a candidate for TNK/IAT due to being outside of the time window. BP on arrival was 221/141. Patient has not been evaluated by a doctor in years.
-MRI Brain 04/22/24: 9 mm ACUTE ISCHEMIC INFARCT in the LEFT FRONTAL LOBE SANTIAGO RADIATA. 5 mm acute to subacute ischemic infarct in the anterior right basal ganglia. 4.8 mm and 1.3 cm subacute ischemic infarcts in the left santiago radiata. Small
chronic ischemic infarcts in the right santigao radiata, thalami, and brigida. Moderate white matter leukoaraiosis in both cerebral hemispheres. Mild diffuse cerebral and cerebellar volume loss. Small to moderate number of tiny intraparenchymal
microhemorrhages in the brainstem and cerebellum consistent with HYPERTENSIVE MICROANGIOPATHY.
-MRA head/neck 04/22/24: Mild atherosclerotic plaque in both intracranial internal carotid arteries causing less than 25% diameter stenosis. Mild hypoplasia of the A1 segment of the right anterior cerebral artery. No MRA evidence for large vessel
arterial stenosis or occlusion in the posterior circulation.
Mild atherosclerotic plaque in both proximal internal carotid arteries causing less than 25% diameter stenosis. 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 70% diameter stenosis at the origin of the right vertebral artery.
I. Acute ischemic infarcts in the left frontal lobe/santiago radiata and right basal ganglia; etiology likely uncontrolled hypertension but cannot entirely exclude cardioembolic source.
II. Multiple chronic ischemic infarcts in the right santiago radiata, thalami, and brigida.
III. Microhemorrhages in the brainstem and cerebellum consistent with hypertensive microangiopathy.
IV. Uncontrolled hypertension.
Plan
-Continue aspirin 81mg daily indefinitely. Will avoid adding Plavix due to microhemorrhages on MRI brain imaging and hypertension.
-TTE pending.
-Slow lowering of blood pressure to goal normotension.
-LDL goal <70. LDL is 107. Continue newly initiated atorvastatin 40mg daily.
-Goal normoglycemia, hbA1c is 5.6.
-NIHSS and neurological checks per unit guidelines.
-Provide patient with a stroke education packet.
-Smoking cessation counseling.
-PT/OT/ST evaluations.
-DVT prophylaxis.
-Patient should follow-up with Neurology as an outpatient, may see the [employer] or one of the physicians.
Subjective/Objective
Subjective Data
Date of Service: April 24, 2024
No acute events overnight. Patient reports ongoing numbness/weakness/incoordination in his right arm and leg and some coughing when drinking fluids through a large mouth container. He denies any headache, dizziness, vision changes, speech
difficulty, nausea, chest pain, palpitations, and shortness of breath.
Objective Data
Vital Signs
Temp Pulse Resp BP Pulse Ox
98.2 F 80 18 174/96 94
04/24/24 07:45 04/24/24 07:45 04/24/24 07:45 04/24/24 07:45 04/24/24 07:45
Lab Results
04/23/24 04:00
04/23/24 04:00
PT 14.2 Sec (11.4-14.6) 04/22/24 04:23
INR 1.12 04/22/24 04:23
APTT 33.7 Sec (23.4-35.0) 04/22/24 04:23
Sodium 135 mmol/L (135-145) 04/23/24 04:00
Potassium 3.9 mmol/L (3.5-5.1) 04/23/24 04:00
BUN 16 mg/dl (9-20) 04/23/24 04:00
Glucose 128 mg/dl (70-99) H 04/23/24 04:00
Calcium 9.8 mg/dl (8.4-10.2) 04/23/24 04:00
LDL Cholesterol, Calc 107 mg/dl 04/22/24 04:23
Patient Allergies
No Known Allergies Allergy (Unverified 04/21/24 17:44)
LDL Level: >70, statin ordered
Review of Systems
-
History Source: Patient
EENT: Negative Blurry Vision, Decreased Vision or Swallowing Difficulty
Respiratory: Negative Cough or Trouble Breathing
Cardiac: Negative Chest Pain or Palpitations
Abdomen/GI: Negative Nausea
Neuro: Weakness, Numbness and Ataxia; Negative Dizzy, Headache, Tremors or Speech Problem
Physical Exam
-
General: No Apparent Distress
Eyes: No Ptosis and PERRLA
HEENT: Normocephalic and Atraumatic
Neck: Full Range of Motion
Respiratory: No Dyspnea
GI: Non-distended
Extremities: No Clubbing, No Cyanosis and No Edema
Psych: Unremarkable
Extended Neurological Exam
Mood & Affect: Mood Unremarkable and Affect Unremarkable
Attention Span & Concentration: Awake, Alert and Interactive
Memory: Unremarkable (AAOx3) and Able to Recall
Tremor: Hand Tremor Absent and Head Tremor Absent
Speech: Quantity Unremarkable, Rate of Production Unremarkable and Dysarthric
Cranial Nerve II: Left Eye: Pupillary Reactivity Unremarkable, Pupillary Size Unremarkable and Visual Mancini Intact
Cranial Nerve II: Right Eye: Pupillary Reactivity Unremarkable, Pupillary Size Unremarkable and Visual Mancini Intact
Cranial Nerves III, IV, : Extraocular Movement: Extraocular Movement Full in all Directions
Cranial Nerve V: Facial Sensation: Intact to Light Touch
Cranial Nerve VII: Facial Symmetry: Normal Facial Symmetry
Cranial Nerve VIII: Hearing: Unremarkable Hearing to Normal Conversational Volume
Cranial Nerves IX, X: Palate Movement: Palate Elevation Symmetric
Cranial Nerve XI: Shoulder Shrug: Unremarkable
Cranial Nerve XII: Tongue Protusion: Midline
Muscle Strength, Overall: Reduced on Right (RUE 4+/5, RLE 5-/5)
Muscle Bulk & Tone: Bulk Unremarkable and Reduced Tone (RUE)
Pronator Drift: Drift in Right Upper Extremity and No Drift in Lower Extremities
Deep Tendon Reflexes: Unremarkable Throughout
Cold Sensation: Unremarkable
Vibration Sensation: Unremarkable
Touch Sensation: Double Simultaneous Stimulation Unremarkable
Coordination: Acrz-Oqrz-Iwqt movement abnormal (RLE ataxia); Negative Zuwsgh-aafr-qhbfzz Testing Unremarkable (RUE ataxia)
Babinski Sign: Absent Bilaterally
Modified Amelia Score (MRS)
-
Modified Amelia Scale (mRS): Moderate disability. Requires some help, able to walk unassisted.
Score: 3
Data Reviewed
-
CT Head: Report Reviewed and Image Reviewed
MRI Head: Report Reviewed and Image Reviewed
MRA Head: Report Reviewed and Image Reviewed
MRA Neck: Report Reviewed and Image Reviewed
Echocardiogram: Pending
Labs: Report Reviewed
Lipid Profile: Report Reviewed
HgbA1C: Report Reviewed
Reviewed with: Physician and Patient
Medications
-
Active Medications
Generic Name Dose Route Start Last Admin
Trade Name Freq PRN Reason Stop Dose Admin
Acetaminophen 650 mg 04/21/24 22:26
Acetaminophen 325 Mg Tablet PO 05/19/24 22:25
Q4HPRN PRN
COLON, mild pain, or temp >100.4F
Aspirin 81 mg 04/22/24 08:00 04/24/24 10:07
Aspirin 81 Mg Chewable Tablet PO 05/20/24 07:59 81 mg
DAILY MICHAEL Administration
Atorvastatin Calcium 40 mg 04/22/24 18:00 04/23/24 17:09
Atorvastatin (Lipitor) 40 Mg Tablet PO 05/20/24 17:59 40 mg
QPM MICHAEL Administration
Hydrochlorothiazide 25 mg 04/22/24 09:00 04/24/24 10:07
Hydrochlorothiazide 25 Mg Tablet PO 05/20/24 08:59 25 mg
DAILY MICHAEL Administration
Nifedipine 60 mg 04/24/24 08:00 04/24/24 10:06
Nifedipine 60 Mg Extended Release Tablet PO 05/22/24 07:59 60 mg
DAILY MICHAEL Administration
Sodium Chloride 0 flush 04/21/24 23:00
Sodium Chloride 0.9% (Flush) Syringe IV 05/19/24 22:59
PER PROTOCOL MICHAEL
Home Medications
�Medication �Instructions �Recorded
No Meds [No Current Medications] 04/21/24
NIH Stroke Score
Subsequent NIH Scale
Date of Subsequent NIH Scale: 04/24/24
Time of Subsequent NIH Scale: 10:00
NIH Stroke Score
Level of Consciousness: 0 - Alert
LOC Questions: 0-Answers both correctly
LOC Commands: 0-Performs both correctly
Best Horizontal Gaze: 0-Normal
Visual Mancini: 0=Normal, no visual loss
Facial Palsy: 0=Normal, symmetrical
Motor - Right Arm: 1=Drift < 10 seconds
Motor - Left Arm: 0=No drift 10 seconds
Motor - Right Le-No drift 5 seconds
Motor - Left Le-No drift 5 seconds
Limb Ataxia: 2-Present in two limbs
Sensation: 1-Mild loss
Best Language: 0-No aphasia
Dysarthria: 1-Mild slurring
Extinction and Inattention: 0-No abnormality
Total Score:: 5
Modified Amelia (mRS) Score
Modified Juani Scale (mRS): Moderate disability. Requires some help, able to walk unassisted.
Score: 3
Alteplase Contraindication
Inclusion and Exclusion criteria reviewed: Yes
Reasons for NON-Tx with Thrombolytics ABSOLUTE Exclusions: Greater than 4.5 hrs from onset of sxs

Documented by User: Jamison Del Valle MD 04/24/24 14:27
Modified Amelia Score (MRS)
-
Score: 3
NIH Stroke Score
NIH Stroke Score
Total Score:: 5
Modified Juani (mRS) Score
Score: 3
[2024-04-24] MEDS: PROCARDIA XL (EXTENDED RELEASE) 60 MG PO ×2 (10:06→20:01)
[2024-04-24] MEDS: ORETIC 25 MG PO (10:07)
[2024-04-24] MEDS: LOW STRENGTH ASPIRIN 81 MG PO (10:07)
--- NOTE | 2024-04-24 11:07 | CM ---
IA completed.
DX: CVA
Patient lives at home alone in a 1 story home. 1 step to get into home.
PLOF: Independent, driving
Patient has equipment (walker, b/p cuff) in the home that he does not use.
No food/housing insecurities.
PCP: Yina Nails
[facility]
Plan: Await PMD consult, Referrals placed to [facility] & [facility] (2nd choice)
Discharge to acute rehab when stable.
--- NOTE | 2024-04-24 14:53 | W.PN.HOSP.TC ---
Today's Communication/Plan
-
Continue aspirin and statin
Continue PT OT
Blood pressure management, increase CCB to twice daily
For discharge planning to acute inpatient rehab
Assessment / Plan
Assessment / Plan
NAD, resting comfortably in bed
Scleral anicteric
Moist mucous membranes
No JVD
CTA bilateral
Normal S1-S2 no murmurs
Soft nontender nondistended bowel sounds active
No peripheral pitting edema
Moves extremities spontaneously
AAOx3, 4/5 motor strength in right upper and lower extremity. 5/5 motor strength in left upper and lower extremities
Hypertensive emergency -in the setting of acute ischemic stroke. Blood pressure much improved, currently on nicardipine 10 mg/hour, Procardia XL 30 mg daily, HCTZ 25 mg daily. Nicardipine drip resumed last evening. Discussed with nursing, will
increase Procardia to 60 mg daily with goal of titrating off nicardipine drip. Once off nicardipine drip can transfer to telemetry.
My suspicion is that patient has a longstanding history of uncontrolled and untreated hypertension. Was not on any medications for blood pressure prior to admission. Has not seen his primary care doctor in years.
Acute ischemic stroke -left frontal lobe, 9 mm. Confirmed on brain MRI. In addition, 5 mm acute to subacute ischemic stroke in the anterior right basal daily. 4.8 mm and 1.3 cm subacute ischemic infarcts in the left santiago radiata. Small chronic
ischemic infarcts in the right santiago radiata, thalami, brigida. Moderate white matter leukoaraiosis in both cerebral hemispheres. Mild diffuse cerebral and cerebellar volume loss. Small to moderate number of tiny intraparenchymal microhemorrhages
in the brainstem and cerebellum consistent with hypertensive microangiopathy.
MRA of head and neck shows mild atherosclerotic plaque in both intracranial internal carotid arteries causing less than 25% diameter stenosis, mild hypoplasia of the A1 segment of the right anterior cerebral artery, 70% diameter stenosis at the
origin of the right vertebral artery.
Continue aspirin, atorvastatin. LDL 107, total cholesterol 168, triglycerides 96, HDL 42.
Echocardiogram pending.
Essential hypertension -untreated. See above.
Tobacco dependence -smoking cessation advised.
Full code
Dispo -anticipate discharge to acute rehab when medically stable. Discussed with patient and he is agreeable.
Anticipated Discharge: Within 24 hours
Subjective/Interval History
-
Date of Service: April 24, 2024
Seen and examined. No new complaints. No acute overnight events.
Remains hypertensive. Understands that we have room on his blood pressure medications to go up on
States he is still weak on his right side however improving
Awaiting to go to acute inpatient rehab
Objective Data
-
Vital Signs:
Vital Signs
Temp Pulse Resp BP Pulse Ox
98.3 F 93 18 162/84 94
04/24/24 11:01 04/24/24 11:01 04/24/24 11:01 04/24/24 11:01 04/24/24 11:47
I&O
04/23/24 04/24/24 04/25/24
06:59 06:59 06:59
Intake Total 976.25 / 1026.25 630 / 630
Output Total 500 / 500 425 / 425
Balance 476.25 / 526.25 205 / 205
--- NOTE | 2024-04-24 16:33 | CON.MD ---
Documented by User: Karolina Mccormick PA-C 04/24/24 20:12
Consultation - Medical
-
Referring Provider: Dr. Mason Wiseman
Chief Complaint: CVA
History of Present Illness: 63-year-old man with longstanding history of uncontrolled hypertension presented to the ED on 04/21/24 with right-sided weakness and slurred speech with significantly elevated blood pressure in the 220s systolic on
admission. MRI of brain revealed bilateral acute multi territory ischemic stroke. Was not on any medications for blood pressure prior to admission. Has not seen his primary care doctor in years.
MRI of brain: left frontal lobe, 9 mm. , 5 mm acute to subacute ischemic stroke in the anterior right basal daily. 4.8 mm and 1.3 cm subacute ischemic infarcts in the left [place] radiata. Small chronic ischemic infarcts in the right santiago
radiata, thalami, brigida. Moderate white matter leukoaraiosis in both cerebral hemispheres. Mild diffuse cerebral and cerebellar volume loss. Small to moderate number of tiny intraparenchymal microhemorrhages in the brainstem and cerebellum
consistent with hypertensive microangiopathy.
MRA of head and neck shows mild atherosclerotic plaque in both intracranial internal carotid arteries causing less than 25% diameter stenosis, mild hypoplasia of the A1 segment of the right anterior cerebral artery, 70% diameter stenosis at the
origin of the right vertebral artery.
Continue aspirin, atorvastatin. LDL 107, total cholesterol 168, triglycerides 96, HDL 42.
Brain MRI reviewed along with MRA of the head and neck there are bilateral acute infarcts no significant intracranial occlusions or stenosis in the MCA arteries
Past Medical History: Uncontrolled HTN,
Procedure History: none
Family History: non contributory
Social History:
Functional Level Premorbidly: Independent with all activities
Functional Level Currently: safety impairment, slurred speech, [id number], Transfer-supervision, Ambulated 60 feet without assistance device with min assist x 1
Tobacco: smoker
Alcohol: Denies
Drug use: Denies
Lives with: Alone
24-hour assistance available:
Number of floors: 1
# steps to enter: 1
# steps to second floor: none
Potential First floor set up:yes
Driving: yes
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
�
Allergies:
Allergy/AdvReac Type Severity Reaction Status Date / Time
No Known Allergies Allergy Unverified 04/21/24 17:44
Review of Systems:
Constitutional: (x) Normal _
Eye: (x) Normal _
Ear/Nose/Throat: (x) Normal _
Respiratory: (x) Normal _
Cardiovascular: (x) Normal _
Gastrointestinal: (x) Normal _
Genitourinary: (x) Normal _
Musculoskeletal: (x) Normal _
Integumentary: (x) Normal _
Neurologic: (x) cva
Psychiatric: (x) Normal _
Endocrine: (x) Normal _
Hematologic/Lymphatic: (x) Normal _
Allergic/Immunologic: (x) Normal _
Medications:
Active Current Visit Medication List
Category Date Time Status
Acetaminophen [Tylenol] Med 04/21/24 22:26 Active
650 mg PO Q4HPRN PRN
Aspirin Chewable [Low Strength Aspirin] Med 04/22/24 08:00 Active
81 mg PO DAILY
Atorvastatin [Lipitor] Med 04/22/24 18:00 Active
40 mg PO QPM
Flush (0.9% Sodium Chloride) [Flush (Nss)] Med 04/21/24 23:00 Active
See Dose Instructions IV PER PROTOCOL
Hydrochlorothiazide [Oretic] Med 04/22/24 09:00 Active
25 mg PO DAILY
NIFEdipine EXTENDED RELEASE [Procardia Xl (Extended Med 04/24/24 20:00 Active
Release)]
60 mg PO BID
Vitals:
Temp Pulse Resp BP Pulse Ox
97.7 F 102 18 162/92 97
04/24/24 15:45 04/24/24 15:45 04/24/24 15:45 04/24/24 15:45 04/24/24 15:45
Height 5 ft 7 in
Actual Weight 68.181 kg
Body Mass Index (BMI) 23.6
Physical Exam:
General Appearance/Observation: Well-developed, well-nourished individual in no apparent distress.
Pain/Comfort Assessment: Denies
Mood/Affect: Appropriate
Integumentary/Operative Site:
�� Pressure Ulcer Evaluation: absent over heels.
��
�� Other Type of Wound: absent
��
Eyes: Conjunctiva/Lids: normal ��� Pupils: pupils equal round and reactive to light and Accommodation
Ears/Nose/Throat: oral mucosa moist,� throat clear.������������ Lips/Teeth/Gums: missing teeth
Neck: No muscle spasm or tenderness
Cardiovascular: Heart: regular, no murmur
Pulses: dorsalis pedis 2+ bilaterally
Respiratory: Respiratory Effort/Chest Expansion: normal ������� Auscultation: Clear to auscultation bilaterally
Gastrointestinal: abdomen not tender, no distension, normal abdominal bowel sounds
Genitourinary: No Neal
Extremities: Edema: None Cyanosis: None Trophic changes: None
Neurology Exam:
Orientation: Alert, Oriented to self, Time, Place
Memory: Intact for immediate medical concerns
Higher cortical function
Repetition: Intact
Comprehension: intact
Two step command: slow processing
Naming: Intact
Cranial Nerves:
�� CNII: Pupillary light reflex: Intact��� Visual Field: Intact
�� CN III, IV, : Extraocular muscles: Intact
�� CN V: Facial Sensation at Forehead: Intact, Maxilla: Intact, Mandible: Intact
�� CN VII: Facial movement: lips deviated to the left
�� CN VIII: Hearing: Normal
�� CN IX/X: Speech & swallow: mild dysarthria Position of Uvula: Midline
�� CN XI: Shoulder shrug: Symmetric
�� CN XII: Tongue protrusion: Midline
Sensory:
�� Light touch: Intact in bilateral upper and lower extremities
��
Reflexes:
�� Biceps: 1+ bilaterally
�� Brachioradialis: 1+ bilaterally
�� Triceps: 1+ bilaterally
�� Patellar: 1+ bilaterally
�� Achilles: 1+ bilaterally
�� Babinski: Down going bilaterally
�� Clonus: None
�� Mike: Negative bilaterally
Cerebellar: Dysmetria/Ataxia: right arm drift, mild dysmetria of right hand with finger to nose coordination
Musculoskeletal:
Motor: (Manual muscle scale 0-5)
Muscle SA EF WE EE FF FA HF KE DF EHL PF
Right� 4 4 4 4 4 4 4 4 4 4- 4-
Left 5 5 5 5 5 5 5 5 5 5 5
Tone: Normal in all extremities
Range of Motion: Passively within normal limits in all extremities
Lab Results
Labs
WBC 11.9 10^3/uL (4.8-10.8) H 04/23/24 04:00
RBC 5.39 10^6/uL (4.70-6.10) 04/23/24 04:00
Hgb 17.2 g/dL (13.0-18.0) 04/23/24 04:00
Hct 47.6 % (39.0-52.0) 04/23/24 04:00
MCV 88.3 fL (80.0-94.0) 04/23/24 04:00
MCH 31.9 pg (27.0-31.0) H 04/23/24 04:00
MCHC 36.1 g/dL (33.0-37.0) 04/23/24 04:00
RDW 13.4 % (11.5-14.5) 04/23/24 04:00
Plt Count 322 10^3/uL (130-400) D 04/23/24 04:00
MPV 9.6 fL (7.4-10.4) 04/23/24 04:00
Abs Immat Gran (auto) 0.0 10^3/uL (0-0.05) 04/22/24 04:28
Absolute Neuts (auto) 7.4 10^3/uL (1.4-6.5) H 04/22/24 04:28
Absolute Lymphs (auto) 2.3 10^3/uL (1.2-3.4) 04/22/24 04:28
Absolute Monos (auto) 1.1 10^3/uL (0.1-0.6) H 04/22/24 04:28
Absolute Eos (auto) 0.2 10^3/uL (0-0.7) 04/22/24 04:28
Absolute Basos (auto) 0.1 10^3/uL (0-0.2) 04/22/24 04:28
Immature Gran % 0.4 % (0-0.5) 04/22/24 04:28
Neutrophils % 66.2 % (42.2-75.2) 04/22/24 04:28
Lymphocytes % 21.0 % (20.5-51.1) 04/22/24 04:28
Monocytes % 9.6 % (1.7-9.3) H 04/22/24 04:28
Eosinophils % 2.2 % (0-6) 04/22/24 04:28
Basophils % 0.6 % (0-2) 04/22/24 04:28
Nucleated RBC % 0 % (-) 04/22/24 04:28
PT 14.2 Sec (11.4-14.6) 04/22/24 04:23
INR 1.12 04/22/24 04:23
APTT 33.7 Sec (23.4-35.0) 04/22/24 04:23
Sodium 135 mmol/L (135-145) 04/23/24 04:00
Potassium 3.9 mmol/L (3.5-5.1) 04/23/24 04:00
Chloride 105 mmol/L (98-107) 04/23/24 04:00
Carbon Dioxide 22 mmol/L (22-30) 04/23/24 04:00
BUN 16 mg/dl (9-20) 04/23/24 04:00
Creatinine 0.9 mg/dL (0.7-1.3) 04/23/24 04:00
Estimated Creat Clear 81 ml/min 04/23/24 04:00
eGFR > 60.00 04/23/24 04:00
Glucose 128 mg/dl (70-99) H 04/23/24 04:00
Hemoglobin A1c Cancelled 04/21/24 22:26
Calcium 9.8 mg/dl (8.4-10.2) 04/23/24 04:00
Magnesium 2.1 mg/dl (1.6-2.3) 04/23/24 04:00
Total Bilirubin 0.5 mg/dl (0.2-1.3) 04/21/24 17:39
AST 30 U/L (17-59) 04/21/24 17:39
ALT 26 U/L (0-50) 04/21/24 17:39
Alkaline Phosphatase 93 U/L (38-126) 04/21/24 17:39
Troponin I < 0.012 ng/ml 04/21/24 21:23
Total Protein 7.1 g/dl (6.3-8.2) 04/21/24 17:39
Albumin 4.8 g/dl (3.5-5.0) 04/21/24 17:39
Triglycerides 96 mg/dl (10-149) 04/22/24 04:23
Total Cholesterol 168 mg/dl (50-199) 04/22/24 04:23
LDL Cholesterol, Calc 107 mg/dl 04/22/24 04:23
VLDL Cholesterol, Calc 19 mg/dl (0-30) 04/22/24 04:23
HDL Cholesterol 42 mg/dl 04/22/24 04:23
Urine Color Yellow 04/21/24 21:59
Urine Clarity Slightly cloudy (Clear) 04/21/24 21:59
Urine pH 7.0 (5.0-9.0) 04/21/24 21:59
Ur Specific [place] 1.010 (<1.030) 04/21/24:
Urine Ketones Trace (Negative) A 04/21/24:
Urine Occult Blood Negative (Negative) 04/21/24:
Urine Nitrite Negative (Negative) 04/21/24:
Urine Bilirubin Negative (Negative) 04/21/24:
Urine Urobilinogen Negative (Neg - 1+) 04/21/24:
Ur Leukocyte Esterase Trace (Negative) A 04/21/24:59
Urine RBC 0-2 /HPF (0-2) 04/21/24:
Urine WBC 3-5 /HPF (0-5) 04/21/24:
Amorphous Crystals Seen 04/21/24:
Urine Bacteria Many (Negative) A 04/21/24
Urine Glucose Negative (Negative) 04/21/24
Urine Albumin Trace (Neg - Trace) 04/21/24:
�
Diagnostic Results: as per HPI
Assessment
63-year-old man with longstanding history of uncontrolled hypertension presented to the ED on with right-sided weakness and slurred speech with significantly elevated blood pressure in the 220s systolic on admission. MRI of brain revealed bilateral
acute multi territory ischemic stroke. Was not on any medications for blood pressure prior to admission. Has not seen his primary care doctor in years.
Plan
PT/OT to increase independence with ADLs, improve balance, coordination, endurance, strength, mobility, community reintegration, decreased burden of care on others and family education.
CVA: Neuro:aspirin 81mg qd monotherapy rather than DAPT because a couple of small microhemorrhages in the brain which are due to chronic uncontrolled hypertension
-Pursue slow resumption of normotension given years of longstanding hypertension.Continue statin
-
Would pursue short-term cardiac monitoring. if negative,would not pursue implanted Linq as suspicion for occult arrhythmia is low given clinical context of longstanding hypertension. (SBP less than 180 and diastolic less than 100 to participate
with therapy for ischemic stroke). Continue to monitor neurologic status.
right dominant hemiparesis: High risk for falls and sliding out of chair/bed. Safety reinforced.
- Avoid using affected arm to help lift or pull patient as this will cause trauma to the shoulder.
Dysarthria: speech evaluation
Uncontrolled HTN:Nifedipine 60mg increased to bid, Hydrochlorothiazide 25mg qd. continue medications, monitor closely
HLD: Atorvastatin 40mg HS
Psych: Psychology consult.� Monitor mood, adjust medications as needed.
Skin: monitor for pressure sores/rashes/lesions.
Pain: acetaminophen as needed.
Bowel: recommend -Colace and Senna, PRN bisacodyl.
Bladder: Time void, PVRs, PRN straight cath.
GI Prophylaxis: recommend Pantoprazole
DVT Prophylaxis: Asa 81mg. Recommend venous pump
Pulmonary: Incentive spirometry
Safety: Continue to reinforce assistance with all transfers.
Code Status:� Full code
Dispo (date/plan/equipment needs): Home with family care.� Social history reviewed.
Discharge Destination: Acute Inpatient Rehabilitation
Summary of recommendations: Previously independent male with recent CVA with right side hemiparesis would benefit from acute inpatient rehabilitation for PT/OT to increase independence with ADLs, improve balance, coordination, endurance, strength,
mobility, community reintegration, decreased burden of care on others and family education.
CVA: Neuro:aspirin 81mg qd monotherapy rather than DAPT because a couple of small microhemorrhages in the brain which are due to chronic uncontrolled hypertension
-Pursue slow resumption of normotension given years of longstanding hypertension.Continue statin
-
Neuro-Would pursue short-term cardiac monitoring. if negative,would not pursue implanted Linq as suspicion for occult arrhythmia is low given clinical context of longstanding hypertension. (SBP less than 180 and diastolic less than 100 to
participate with therapy for ischemic stroke). Continue to monitor neurologic status.
right dominant hemiparesis: High risk for falls and sliding out of chair/bed. Safety reinforced.
Avoid using affected arm to help lift or pull patient as this will cause trauma to the shoulder.
Uncontrolled HTN:Nifedipine 60mg increased to bid, Hydrochlorothiazide 25mg qd. continue medications, monitor closely.(SBP less than 180 and diastolic less than 100 to participate with therapy for ischemic stroke).
Bowel: recommend -Colace and Senna, PRN bisacodyl.
Bladder: Time void, PVRs, PRN straight cath.
GI Prophylaxis: recommend Pantoprazole
DVT Prophylaxis: Asa 81mg. Recommend venous pump
Pulmonary: Incentive spirometry
Safety: Continue to reinforce assistance with all transfers.
Thank you for allowing me to care for your patient. Please contact me with any questions or concerns.
This note was dictated using a voice recognition system. Please excuse any typographical errors from [employer]. If you believe there are any discrepancies, please notify our office.

Documented by User: Luis Antonio Castro MD 04/25/24 10:09
Consultation - Medical
-
Referring Provider: Dr. Mason Wiseman
Chief Complaint: CVA
History of Present Illness: 63-year-old right-handed man with longstanding history of uncontrolled hypertension presented to the ED on 04/21/24 with right-sided weakness and slurred speech with significantly elevated blood pressure in the 220s
systolic on admission. MRI of brain revealed bilateral acute multi territory ischemic stroke. Was not on any medications for blood pressure prior to admission. Has not seen his primary care doctor in years.
MRI of brain: left frontal lobe, 9 mm. , 5 mm acute to subacute ischemic stroke in the anterior right basal daily. 4.8 mm and 1.3 cm subacute ischemic infarcts in the left santiago radiata. Small chronic ischemic infarcts in the right santiago
radiata, thalami, brigida. Moderate white matter leukoaraiosis in both cerebral hemispheres. Mild diffuse cerebral and cerebellar volume loss. Small to moderate number of tiny intraparenchymal microhemorrhages in the brainstem and cerebellum
consistent with hypertensive microangiopathy.
MRA of head and neck shows mild atherosclerotic plaque in both intracranial internal carotid arteries causing less than 25% diameter stenosis, mild hypoplasia of the A1 segment of the right anterior cerebral artery, 70% diameter stenosis at the
origin of the right vertebral artery.
Continue aspirin, atorvastatin. LDL 107, total cholesterol 168, triglycerides 96, HDL 42.
Brain MRI reviewed along with MRA of the head and neck there are bilateral acute infarcts no significant intracranial occlusions or stenosis in the MCA arteries.
Overall doing better, started moving better, sensation on right side almost back to normal.
Past Medical History: Uncontrolled HTN
Procedure History: none
Family History: noncontributory
Social History:
Functional Level Premorbidly: Independent with all activities
Functional Level Currently: safety impairment, slurred speech, [id number], Transfer-supervision, Ambulated 60 feet without assistance device with min assist x 1
Tobacco: smoker
Alcohol: Denies
Drug use: Denies
Lives with: Alone
24-hour assistance available: No
Number of floors: 1
# steps to enter: 1
Driving: yes
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
Allergies:
Allergy/AdvReac Type Severity Reaction Status Date / Time
No Known Allergies Allergy Unverified 04/21/24 17:44
Review of Systems:
Constitutional: (x) abNormal _ fatigue
Eye: (x) Normal _
Ear/Nose/Throat: (x) Normal _
Respiratory: (x) Normal _
Cardiovascular: (x) Normal _
Gastrointestinal: (x) Normal _
Genitourinary: (x) Normal _
Musculoskeletal: (x) Normal _
Integumentary: (x) Normal _
Neurologic: (x) cva with right-sided weakness, right-sided sensory change, dysarthria
Psychiatric: (x) Normal _
Endocrine: (x) Normal _
Hematologic/Lymphatic: (x) Normal _
Allergic/Immunologic: (x) Normal _
Medications:
Active Current Visit Medication List
Category Date Time Status
Acetaminophen [Tylenol] Med 04/21/24 22:26 Active
650 mg PO Q4HPRN PRN
Aspirin Chewable [Low Strength Aspirin] Med 04/22/24 08:00 Active
81 mg PO DAILY
Atorvastatin [Lipitor] Med 04/22/24 18:00 Active
40 mg PO QPM
Flush (0.9% Sodium Chloride) [Flush (Nss)] Med 04/21/24 23:00 Active
See Dose Instructions IV PER PROTOCOL
Hydrochlorothiazide [Oretic] Med 04/22/24 09:00 Active
25 mg PO DAILY
NIFEdipine EXTENDED RELEASE [Procardia Xl (Extended Med 04/24/24 20:00 Active
Release)]
60 mg PO BID
Vitals:
Temp Pulse Resp BP Pulse Ox
97.7 F 102 18 162/92 97
04/24/24 15:45 04/24/24 15:45 04/24/24 15:45 04/24/24 15:45 04/24/24 15:45
Height 5 ft 7 in
Actual Weight 68.181 kg
Body Mass Index (BMI) 23.6
Physical Exam:
General Appearance/Observation: Well-developed, well-nourished male in no apparent distress.
Pain/Comfort Assessment: Denies
Mood/Affect: Appropriate
Integumentary/Operative Site: No lesions noted during course of exam
�� Pressure Ulcer Evaluation: absent over heels.
��
Eyes: Conjunctiva/Lids: normal ��� Pupils: pupils equal round and reactive to light and Accommodation
Ears/Nose/Throat: oral mucosa moist,� throat clear.������������ Lips/Teeth/Gums: missing teeth
Neck: No muscle spasm or tenderness
Cardiovascular: Heart: regular, no murmur
Pulses: dorsalis pedis 2+ bilaterally
Respiratory: Respiratory Effort/Chest Expansion: normal ������� Auscultation: Clear to auscultation bilaterally
Gastrointestinal: abdomen not tender, no distension, normal abdominal bowel sounds
Genitourinary: No Neal
Extremities: Edema: None Cyanosis: None Trophic changes: None
Neurology Exam:
Orientation: Alert, Oriented to self, Time, Place
Memory: Intact for immediate medical concerns
Repetition: Intact
Comprehension: intact
Two step command: slow processing
Naming: Intact
Cranial Nerves:
�� CNII: Pupillary light reflex: Intact��� Visual Field: Intact
�� CN III, IV, : Extraocular muscles: Intact
�� CN V: Facial Sensation at Forehead: Intact, Maxilla: Intact, Mandible: Intact
�� CN VII: Facial movement: Right facial weakness
�� CN VIII: Hearing: Normal
�� CN IX/X: Speech & swallow: mild dysarthria Position of Uvula: Midline
�� CN XI: Shoulder shrug: decreased on right
�� CN XII: Tongue protrusion: Midline
Sensory:
�� Light touch: Intact in bilateral upper and lower extremities
��
Reflexes:
�� Biceps: 2+ bilaterally
�� Brachioradialis: 2+ bilaterally
�� Triceps: 2+ bilaterally
�� Patellar: 2+ bilaterally
�� Achilles: 2+ bilaterally
�� Babinski: Down going bilaterally
�� Clonus: None
�� Mike: Negative bilaterally
Cerebellar: Dysmetria/Ataxia: right arm drift, mild dysmetria of right hand with finger to nose coordination
Musculoskeletal: Motor: (Manual muscle scale 0-5)
Muscle SA EF WE EE FF FA HF KE DF EHL PF
Right� 4 4 3 4 3 3 4 4 4 4 4
Left 5 5 5 5 5 5 5 5 5 5 5
Tone: Normal in all extremities
Range of Motion: Passively within normal limits in all extremities
Lab Results
Labs
WBC 11.9 10^3/uL (4.8-10.8) H 04/23/24 04:00
RBC 5.39 10^6/uL (4.70-6.10) 04/23/24 04:00
Hgb 17.2 g/dL (13.0-18.0) 04/23/24 04:00
Hct 47.6 % (39.0-52.0) 04/23/24 04:00
MCV 88.3 fL (80.0-94.0) 04/23/24 04:00
MCH 31.9 pg (27.0-31.0) H 04/23/24 04:00
MCHC 36.1 g/dL (33.0-37.0) 04/23/24 04:00
RDW 13.4 % (11.5-14.5) 04/23/24 04:00
Plt Count 322 10^3/uL (130-400) D 04/23/24 04:00
MPV 9.6 fL (7.4-10.4) 04/23/24 04:00
Abs Immat Gran (auto) 0.0 10^3/uL (0-0.05) 04/22/24 04:28
Absolute Neuts (auto) 7.4 10^3/uL (1.4-6.5) H 04/22/24 04:28
Absolute Lymphs (auto) 2.3 10^3/uL (1.2-3.4) 04/22/24 04:28
Absolute Monos (auto) 1.1 10^3/uL (0.1-0.6) H 04/22/24 04:28
Absolute Eos (auto) 0.2 10^3/uL (0-0.7) 04/22/24 04:28
Absolute Basos (auto) 0.1 10^3/uL (0-0.2) 04/22/24 04:28
Immature Gran % 0.4 % (0-0.5) 04/22/24 04:28
Neutrophils % 66.2 % (42.2-75.2) 04/22/24 04:28
Lymphocytes % 21.0 % (20.5-51.1) 04/22/24 04:28
Monocytes % 9.6 % (1.7-9.3) H 04/22/24 04:28
Eosinophils % 2.2 % (0-6) 04/22/24 04:28
Basophils % 0.6 % (0-2) 04/22/24 04:28
Nucleated RBC % 0 % (-) 04/22/24 04:28
PT 14.2 Sec (11.4-14.6) 04/22/24 04:23
INR 1.12 04/22/24 04:23
APTT 33.7 Sec (23.4-35.0) 04/22/24 04:23
Sodium 135 mmol/L (135-145) 04/23/24 04:00
Potassium 3.9 mmol/L (3.5-5.1) 04/23/24 04:00
Chloride 105 mmol/L (98-107) 04/23/24 04:00
Carbon Dioxide 22 mmol/L (22-30) 04/23/24 04:00
BUN 16 mg/dl (9-20) 04/23/24 04:00
Creatinine 0.9 mg/dL (0.7-1.3) 04/23/24 04:00
Estimated Creat Clear 81 ml/min 04/23/24 04:00
eGFR > 60.00 04/23/24 04:00
Glucose 128 mg/dl (70-99) H 04/23/24 04:00
Hemoglobin A1c Cancelled 04/21/24 22:26
Calcium 9.8 mg/dl (8.4-10.2) 04/23/24 04:00
Magnesium 2.1 mg/dl (1.6-2.3) 04/23/24 04:00
Total Bilirubin 0.5 mg/dl (0.2-1.3) 04/21/24 17:39
AST 30 U/L (17-59) 04/21/24 17:39
ALT 26 U/L (0-50) 04/21/24 17:39
Alkaline Phosphatase 93 U/L (38-126) 04/21/24 17:39
Troponin I < 0.012 ng/ml 04/21/24 21:23
Total Protein 7.1 g/dl (6.3-8.2) 04/21/24 17:39
Albumin 4.8 g/dl (3.5-5.0) 04/21/24 17:39
Triglycerides 96 mg/dl (10-149) 04/22/24 04:23
Total Cholesterol 168 mg/dl (50-199) 04/22/24 04:23
LDL Cholesterol, Calc 107 mg/dl 04/22/24 04:23
VLDL Cholesterol, Calc 19 mg/dl (0-30) 04/22/24 04:23
HDL Cholesterol 42 mg/dl 04/22/24 04:23
Urine Color Yellow 04/21/24 21:59
Urine Clarity Slightly cloudy (Clear) 04/21/24 21:59
Urine pH 7.0 (5.0-9.0) 04/21/24 21:59
Ur Specific [place] 1.010 (<1.030) 04/21/24 21:59
Urine Ketones Trace (Negative) A 04/21/24 21:59
Urine Occult Blood Negative (Negative) 04/21/24 21:59
Urine Nitrite Negative (Negative) 04/21/24 21:59
Urine Bilirubin Negative (Negative) 04/21/24 21:59
Urine Urobilinogen Negative (Neg - 1+) 04/21/24 21:59
Ur Leukocyte Esterase Trace (Negative) A 04/21/24 21:59
Urine RBC 0-2 /HPF (0-2) 04/21/24 21:59
Urine WBC 3-5 /HPF (0-5) 04/21/24 21:59
Amorphous Crystals Seen 04/21/24 21:59
Urine Bacteria Many (Negative) A 04/21/24 21:59
Urine Glucose Negative (Negative) 07/26/24 21:59
Urine Albumin Trace (Neg - Trace) 04/21/24 21:59
�
Diagnostic Results: as per HPI
Assessment
63-year-old man Right handed M PMH (longstanding uncontrolled HTN) with right-sided weakness and slurred speech from bilateral acute multi territory ischemic stroke and uncontrolled HTN with ADL and ambulatory dysfunction
Plan
PT/OT to increase independence with ADLs, improve balance, coordination, endurance, strength, mobility, community reintegration, decreased burden of care on others and family education.
CVA: Neuro:aspirin 81 mg monotherapy rather than DAPT because a couple of small microhemorrhages in the brain which are due to chronic uncontrolled hypertension, statin. Blood pressure control (SBP less than 180 and diastolic less than 100 to
participate with therapy for ischemic stroke). Continue to monitor neurologic status.
-Per neurology, pursue slow resumption of normotension given years of longstanding hypertension.
-Per neurology, would pursue short-term cardiac monitoring. if negative,would not pursue implanted Linq as suspicion for occult arrhythmia is low given clinical context of longstanding hypertension.
Right dominant hemiparesis: High risk for falls and sliding out of chair/bed. Safety reinforced.
- Avoid using affected arm to help lift or pull patient as this will cause trauma to the shoulder.
Dysarthria: speech
Uncontrolled HTN: Nifedipine 60mg increased to bid, Hydrochlorothiazide 25mg daily, watch potassium. Slowly decrease blood pressure with chronic hypertension
HLD: Atorvastatin 40 mg HS
Psych: Psychology consult.� Monitor mood, adjust medications as needed.
Skin: monitor for pressure sores/rashes/lesions.
Pain: acetaminophen as needed.
Bowel: Recommend Colace and Senna, PRN bisacodyl.
Bladder: Time void, PVRs, PRN straight cath.
DVT Prophylaxis: Recommend mechanical and Lovenox chemoprophylaxis
Pulmonary: Incentive spirometry
Safety: Continue to reinforce assistance with all transfers.
Code Status:� Full code
Dispo (date/plan/equipment needs): Home with family care.� Social history reviewed.
Discharge Destination: Acute Inpatient Rehabilitation
Summary of recommendations: Previously independent male with recent CVA with right side hemiparesis would benefit from acute inpatient rehabilitation for PT/OT to increase independence with ADLs, improve balance, coordination, endurance, strength,
mobility, community reintegration, decreased burden of care on others and family education.
CVA: Neuro:aspirin 81mg qd monotherapy rather than DAPT because a couple of small microhemorrhages in the brain which are due to chronic uncontrolled hypertension
-Pursue slow resumption of normotension given years of longstanding hypertension.Continue statin
-Neuro-Would pursue short-term cardiac monitoring. if negative,would not pursue implanted Linq as suspicion for occult arrhythmia is low given clinical context of longstanding hypertension. (SBP less than 180 and diastolic less than 100 to
participate with therapy for ischemic stroke). Continue to monitor neurologic status.
Right dominant hemiparesis: High risk for falls and sliding out of chair/bed. Safety reinforced.
- Avoid using affected arm to help lift or pull patient as this will cause trauma to the shoulder.
Uncontrolled HTN:Nifedipine 60mg increased to bid, Hydrochlorothiazide 25mg qd. continue medications, monitor closely.(SBP less than 180 and diastolic less than 100 to participate with therapy for ischemic stroke).
Bowel: recommend -Colace and Senna, PRN bisacodyl.
Bladder: Time void, PVRs, PRN straight cath.
DVT Prophylaxis: Asa 81mg. Recommend venous pump
Thank you for allowing me to care for your patient. Please contact me with any questions or concerns.
Attending Statement:
I saw and examined the patient 04/25/24 yellow to have the order and Mina is Mina's having 1 formed K he said little so he said for little eats the son and 2 who is number to start number
. Reviewed care plan with patient, therapy, nursing, and physician field administrative assistant. I agree with the above subjective and physical exam, and plan as documented by KENDRICK Mccormick with adjustments made as necessary.
[2024-04-24] MEDS: LIPITOR 40 MG PO (18:40)
[2024-04-25 03:15] VITALS: BP 173/92
[2024-04-25 07:00] VITALS: BP 166/101
[2024-04-25] MEDS: ORETIC 25 MG PO (08:03)
[2024-04-25] MEDS: PROCARDIA XL (EXTENDED RELEASE) 60 MG PO (08:03)
[2024-04-25] MEDS: LOW STRENGTH ASPIRIN 81 MG PO (08:03)
[2024-04-25 10:25] VITALS: BP 162/98
--- NOTE | 2024-04-25 10:31 | CM ---
Addendum entered by Elena Otero 04/25/24 12:19:
Plan: [facility]
Report# [id number]

Addendum entered by Elena Otero 04/25/24 12:16:
TC from [facility] approved acute rehab
Auth # [id number]
Start date 04/25/24, NRD 05/01/24
updates to [phone]
Original Note:
Per [facility] Liaison, [facility]
NPI# [id number]
Dr Castro NPI# [id number]
Call to [id number]
Insurance auth initiated with I[employer]/
Pended reference # [id number]
Per Naty/reviewer case sent for MDR review.
--- NOTE | 2024-04-25 12:23 | W.PN.HOSP.TC ---
Today's Communication/Plan
-
Cleared for discharge to [facility] today
Assessment / Plan
Assessment / Plan
NAD, resting comfortably in bed
Scleral anicteric
Moist mucous membranes
No JVD
CTA bilateral
Normal S1-S2 no murmurs
Soft nontender nondistended bowel sounds active
No peripheral pitting edema
Moves extremities spontaneously
AAOx3, 4/5 motor strength in right upper and lower extremity. 5/5 motor strength in left upper and lower extremities
Hypertensive emergency -in the setting of acute ischemic stroke. Blood pressure much improved, currently on nicardipine 10 mg/hour, Procardia XL 30 mg daily, HCTZ 25 mg daily. Nicardipine drip resumed last evening. Discussed with nursing, will
increase Procardia to 60 mg daily with goal of titrating off nicardipine drip. Once off nicardipine drip can transfer to telemetry.
My suspicion is that patient has a longstanding history of uncontrolled and untreated hypertension. Was not on any medications for blood pressure prior to admission. Has not seen his primary care doctor in years.
Acute ischemic stroke -left frontal lobe, 9 mm. Confirmed on brain MRI. In addition, 5 mm acute to subacute ischemic stroke in the anterior right basal daily. 4.8 mm and 1.3 cm subacute ischemic infarcts in the left santiago radiata. Small chronic
ischemic infarcts in the right santiago radiata, thalami, brigida. Moderate white matter leukoaraiosis in both cerebral hemispheres. Mild diffuse cerebral and cerebellar volume loss. Small to moderate number of tiny intraparenchymal microhemorrhages
in the brainstem and cerebellum consistent with hypertensive microangiopathy.
MRA of head and neck shows mild atherosclerotic plaque in both intracranial internal carotid arteries causing less than 25% diameter stenosis, mild hypoplasia of the A1 segment of the right anterior cerebral artery, 70% diameter stenosis at the
origin of the right vertebral artery.
Continue aspirin, atorvastatin. LDL 107, total cholesterol 168, triglycerides 96, HDL 42.
Echocardiogram pending.
Essential hypertension -untreated. See above.
Tobacco dependence -smoking cessation advised.
Full code
Dispo -anticipate discharge to acute rehab when medically stable. Discussed with patient and he is agreeable.
Anticipated Discharge: Within 24 hours
Subjective/Interval History
-
Date of Service: April 25, 2024
Seen and examined. Sitting in bedside chair. No new complaints. No acute overnight events. Awaiting to go to [facility].
Objective Data
-
Vital Signs:
Vital Signs
Temp Pulse Resp BP Pulse Ox
97.9 F 74 16 162/98 97
04/25/24 07:00 04/25/24 07:00 04/25/24 07:00 04/25/24 10:25 04/25/24 07:00
I&O
04/24/24 04/25/24 04/26/24
06:59 06:59 06:59
Intake Total 630 / 630 1080 / 1080
Output Total 425 / 425
Balance 205 / 205 1080 / 1080
--- NOTE | 2024-04-25 12:33 | W.DCSUMMARY ---
Discharge Summary
Discharge Data
Date of Admission: 04/21/24
Date of Discharge: 04/25/24
-
Pending Results: No
Hospital Course
63 male history of hypertension Presented with right-sided numbness/weakness x 3 days. Was admitted to ICU as he was noted to have hypertensive emergency with BP of 240/135. Started on Cardene drip with improvement. At the same time initiated on
p.o. antihypertensive agent. MRI was obtained due to this right-sided numbness and weakness which demonstrated acute ischemic infarct in the left frontal lobe treviño radiator. 5 mm acute to subacute ischemic infarct to the anterior right basal
ganglia. Small chronic ischemic infarcts to the right coronary data, the Lami and brigida. MRI head and neck demonstrating mild atherosclerotic plaque in both intracranial internal carotid arteries causing less than 25% diameter stenosis. Please see
report impressions below. Evaluated by neurology recommended aspirin statin blood pressure control. 2d echo as below. A1c 5.6. LDL 107, TG 96. TC 168, HDL 42, VLDL 19. PT/OT rec AIR. Evaluated by Physiatry and recommended Acute [facility] re[facility].
-MRI Brain 04/22/24: 9 mm ACUTE ISCHEMIC INFARCT in the LEFT FRONTAL LOBE TREVIÑO RADIATA. 5 mm acute to subacute ischemic infarct in the anterior right basal ganglia. 4.8 mm and 1.3 cm subacute ischemic infarcts in the left treviño radiata. Small
chronic ischemic infarcts in the right treviño radiata, thalami, and brigida. Moderate white matter leukoaraiosis in both cerebral hemispheres. Mild diffuse cerebral and cerebellar volume loss. Small to moderate number of tiny intraparenchymal
microhemorrhages in the brainstem and cerebellum consistent with HYPERTENSIVE MICROANGIOPATHY.
-MRA head/neck 04/22/24: Mild atherosclerotic plaque in both intracranial internal carotid arteries causing less than 25% diameter stenosis. Mild hypoplasia of the A1 segment of the right anterior cerebral artery. No MRA evidence for large vessel
arterial stenosis or occlusion in the posterior circulation.
Mild atherosclerotic plaque in both proximal internal carotid arteries causing less than 25% diameter stenosis. 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 70% diameter stenosis at the origin of the right vertebral artery.
I. Acute ischemic infarcts in the left frontal lobe/treviño radiata and right basal ganglia; etiology likely uncontrolled hypertension but cannot entirely exclude cardioembolic source.
II. Multiple chronic ischemic infarcts in the right treviño radiata, thalami, and brigida.
III. Microhemorrhages in the brainstem and cerebellum consistent with hypertensive microangiopathy.
2d ECho
CONCLUSIONS
Normal left ventricular size and systolic function. No regional wall motion
abnormalities are seen. Moderate concentric left ventricular hypertrophy. LV
ejection fraction is 60-65%.
No significant valvular disease.
No prior study available for comparison.
IV. Uncontrolled hypertension.
Discharge Plan
-
Patient Disposition: Acute Rehab Facility
Discharge Diagnosis/Procedures: Acute cva, HTN emergency
Condition: Good
Diet: As tolerated
Activity: As tolerated
Activity Restrictions/Additional Instructions:
Presented with right-sided numbness/weakness x 3 days. Was admitted to ICU as he was noted to have hypertensive emergency with BP of 240/135. Started on Cardene drip with improvement. At the same time initiated on p.o. antihypertensive agent.
MRI was obtained due to this right-sided numbness and weakness which demonstrated acute ischemic infarct in the left frontal lobe treviño radiator. 5 mm acute to subacute ischemic infarct to the anterior right basal ganglia. Small chronic ischemic
infarcts to the right coronary data, the Lami and brigida. MRI head and neck demonstrating mild atherosclerotic plaque in both intracranial internal carotid arteries causing less than 25% diameter stenosis. Please see report impressions below.
Evaluated by neurology recommended aspirin statin blood pressure control. 2d echo as below. A1c 5.6. LDL 107, TG 96. TC 168, HDL 42, VLDL 19. PT/OT rec AIR. Evaluated by Physicatry and recommened Acute inpatietn rehab.
-MRI Brain 04/22/24: 9 mm ACUTE ISCHEMIC INFARCT in the LEFT FRONTAL LOBE TREVIÑO RADIATA. 5 mm acute to subacute ischemic infarct in the anterior right basal ganglia. 4.8 mm and 1.3 cm subacute ischemic infarcts in the left treviño radiata. Small
chronic ischemic infarcts in the right treviño radiata, thalami, and brigida. Moderate white matter leukoaraiosis in both cerebral hemispheres. Mild diffuse cerebral and cerebellar volume loss. Small to moderate number of tiny intraparenchymal
microhemorrhages in the brainstem and cerebellum consistent with HYPERTENSIVE MICROANGIOPATHY.
-MRA head/neck 04/22/24: Mild atherosclerotic plaque in both intracranial internal carotid arteries causing less than 25% diameter stenosis. Mild hypoplasia of the A1 segment of the right anterior cerebral artery. No MRA evidence for large vessel
arterial stenosis or occlusion in the posterior circulation.
Mild atherosclerotic plaque in both proximal internal carotid arteries causing less than 25% diameter stenosis. 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 70% diameter stenosis at the origin of the right vertebral artery.
I. Acute ischemic infarcts in the left frontal lobe/treviño radiata and right basal ganglia; etiology likely uncontrolled hypertension but cannot entirely exclude cardioembolic source.
II. Multiple chronic ischemic infarcts in the right treviño radiata, thalami, and brigida.
III. Microhemorrhages in the brainstem and cerebellum consistent with hypertensive microangiopathy.
2d ECho
CONCLUSIONS
Normal left ventricular size and systolic function. No regional wall motion
abnormalities are seen. Moderate concentric left ventricular hypertrophy. LV
ejection fraction is 60-65%.
No significant valvular disease.
No prior study available for comparison.
IV. Uncontrolled hypertension.
Instructions: Stroke - Discharge instructions, Stroke rehabilitation exercises, BLOOD PRESSURE
Referrals:
Gary Swift MD [Active] - in two to four weeks
Yina Nails DO [Family Provider] -
Andriy Lan MD [Active] - in two to four weeks
(Dr. Lan or nurse practitioner
PFTs, smoking cessation counseling, yearly low-dose lung cancer screening CT)
Prescriptions:
New
atorvastatin 40 mg Tablet
40 mg PO QPM Qty: 30 0RF
aspirin 81 mg Tablet,Chewable
81 mg PO DAILY Qty: 30 0RF
hydrochlorothiazide 25 mg Tablet
25 mg PO DAILY Qty: 30 0RF
nifedipine 60 mg Tablet Extended Release
60 mg PO BID Qty: 30 0RF
Discharge Orders:
Discharge Patient (As Directed); Ordered 04/25/24
Ordered By: Mason Wiseman
Discharge Date and Time
Print Language: PARAGUAYAN
== END 2024-04-25 15:48 | DRG 65 ==
LOC: 4 WEST ACU 21:30
PROVIDERS: Emergency Medicine; Nurse Practitioner Family; ADMITTING PHYSICIAN Hospitalist; ATTENDING PHYSICIAN Hospitalist; CONSULT PHYSICIAN Internal Medicine Critical Care Medicine; CONSULT PHYSICIAN Physical Medicine & Rehabilitation; CONSULT PHYSICIAN Psychiatry & Neurology Neurology; EMERGENCY PHYSICIAN Student in an Organized Health Care Education/Training Program; FAMILY PHYSICIAN Family Medicine
DX: I63.89 Other cerebral infarction (principal); G81.91 Hemiplegia, unspecified affecting right dominant side; I16.1 Hypertensive emergency; I65.23 Occlusion and stenosis of bilateral carotid arteries; I65.01 Occlusion and stenosis of right vertebral artery; I67.89 Other cerebrovascular disease; I10 Essential (primary) hypertension; E78.5 Hyperlipidemia, unspecified; R73.9 Hyperglycemia, unspecified; R00.0 Tachycardia, unspecified; R27.0 Ataxia, unspecified; R20.0 Anesthesia of skin; R47.81 Slurred speech; R47.1 Dysarthria and anarthria; D72.829 Elevated white blood cell count, unspecified; F17.210 Nicotine dependence, cigarettes, uncomplicated; Z86.73 Personal history of transient ischemic attack (TIA), and cerebral infarction without residual deficits; Z82.49 Family history of ischemic heart disease and other diseases of the circulatory system
CPT/HCPCS: 70450; 70544; 70548; 70553; 71045; 80048; 80053; 80061; 81003; 81015; 83036; 83735; 84484; 85025; 85027; 85610; 85730; 92507; 92523; 92526; 92610; 93005; 93306; 96365; 96366; 96375; 96376; 97116; 97129; 97163; 97167; 97530; 97535; 99291; 99406; A9585

== ENCOUNTER 2024-05-25 12:22 | Outpatient (RCR) | payer BC, SELFPAY | END 2024-05-25 23:59 | disposition home or self-care (01) | LOC: ROT 12:22 | PROVIDERS: ATTENDING PHYSICIAN Physical Medicine & Rehabilitation; FAMILY PHYSICIAN Family Medicine | DX: I69.322 Dysarthria following cerebral infarction (principal); Z73.6 Limitation of activities due to disability; I69.328 Other speech and language deficits following cerebral infarction | CPT/HCPCS: 92523; 97110; 97112; 97116; 97163; 97167; 97530 ==

== ENCOUNTER 2024-05-31 14:17 | Inpatient (IN) | payer BC, SELFPAY ==
[2024-05-30] VITALS (7 sets, daily range): BP systolic 107–166; BP diastolic 62–97; BMI 23.2
[2024-05-30 14:31] LABS: Glucose - Point of Care 93 mg/dl (70-99)
[2024-05-30 15:13] LABS: % Basophils 0.5 % (0-2); % Eosinophils 1.5 % (0-6); % Immature Granulocytes 0.3 % (0-0.5); % Lymphocytes 23.1 % (20.5-51.1); % Monocytes 8.7 % (1.7-9.3); % Neutrophils 65.9 % (42.2-75.2); Absolute Basophils 0.1 10^3/uL (0-0.2); Absolute Eosinophils 0.2 10^3/uL (0-0.7); Absolute Monocytes 1.1 10^3/uL (0.1-0.6); Absolute Neutrophils 8.6 10^3/uL (1.4-6.5); Hematocrit 44.4 % (39.0-52.0); Hemoglobin 15.9 g/dL (13.0-18.0); Mean Corp Hgb Conc. 35.8 g/dL (33.0-37.0); Mean Corpuscular Hgb 32.6 pg (27.0-31.0); Mean Platelet Volume 9.2 fL (7.4-10.4); Nucleated Red Blood Cells % 0 % (-); Platelet Count 336 10^3/uL (130-400); Red Blood Cell Count 4.88 10^6/uL (4.70-6.10); Red Cell Dist. Width 12.9 % (11.5-14.5); White Blood Cell Count 13.1 10^3/uL (4.8-10.8)
[2024-05-30 15:22] LABS: INR 1.07; PT 13.9 Sec (11.4-14.6)
[2024-05-30 15:23] LABS: APTT 32.4 Sec (23.4-35.0)
--- NOTE | 2024-05-30 15:36 | ED.GENMED ---
History of Present Illness
General
Chief Complaint: Fall
Time Seen by Provider: 05/30/24 15:06
History of Present Illness
History of Present Illness:
Patient is a 64-year-old woman history of prior CVA with residual right-sided deficits presenting to the emergency department after a fall. Patient states that yesterday he fell after his legs gave out. He then noticed some slurring of his speech.
He went to physical therapy today who told him to come here for further evaluation. He states that this is new. He has been receiving more balance issues though that is from his prior stroke. He did not hit his head or lose consciousness. He
did land on his hands and knees. No new numbness tingling. No new weakness.
Past History
Past History
ED Past Medical History: None
ED Past Surgical History: None
Social History
Tobacco: Smoker
Alcohol: None
Phy Exam
Physical Exam
Physical Exam:
GENERAL: in no acute distress
HEENT: normocephalic, extraocular movements intact, moist oral mucosa
NECK: normal inspection
RESPIRATORY: no respiratory distress, clear to auscultation bilaterally
CARDIOVASCULAR: regular rate and rhythm
ABDOMEN/: soft, non-distended, non-tender to palpation, no rebound or guarding
EXTREMITIES: non-tender, no edema/swelling, left middle finger with diffuse swelling and bruising, full range of motion equal strength
NEUROLOGIC: alert and oriented x 3, dysarthria, right upper extremity strength 4/5, left upper extremity strength 5/5, right lower extremity strength 4/5, left lower extremity strength 5/5, normal sensation to light touch, abnormal right-sided
[id number], gait not tested formally
SKIN: warm
Course
Orders/Labs/Results
Orders:
Orders
05/30/24 14:32
CT Head W/o Iv Contrast Urgent
Comment:
Reason For Exam: slurred speech, balance changes, fall
05/30/24 14:54
Complete Blood Count/With Diff Urgent
Comprehensive Metabolic Panel Urgent
PTT Urgent
Prothrombin Time Urgent
Abnormal Lab Results
05/30/24
14:54
WBC 13.1 H 10^3/uL
(4.8-10.8)
MCH 32.6 H pg
(27.0-31.0)
Absolute Neuts (auto) 8.6 H 10^3/uL
(1.4-6.5)
Absolute Monos (auto) 1.1 H 10^3/uL
(0.1-0.6)
Calcium 10.3 H mg/dl
(8.4-10.2)
05/30/24 14:54
05/30/24 14:54
Vital Signs
Initial and Last Documented VS:
Initial Vital Signs
Temp Pulse Resp BP Pulse Ox
98.4 F 71 18 166/96 100
05/30/24 14:30 05/30/24 14:30 05/30/24 14:30 05/30/24 14:30 05/30/24 14:30
Last Documented Vital Signs
Temp Pulse Resp BP Pulse Ox
98.4 F 61 21 148/78 98
05/30/24 14:30 05/30/24 15:45 05/30/24 15:45 05/30/24 15:36 05/30/24 15:45
MDM/Problems Addressed
Differential Diagnosis Includes:
Patient is a 64-year-old male with history of prior stroke with residual right-sided deficits presented to the emergency department with a fall yesterday and now with slurring of his speech. Vitals are unremarkable and exam does show new
dysarthria. He does have noticeable abnormal right [id number] and right sided weakness though he states that is at baseline. Concern for CVA versus recrudescence versus intracranial bleed. Will check blood work EKG and CT scan. Patient will
need admission. Given his swelling to the finger I did offer x-rays to evaluate for any fractures. However patient is adamant that he does not want any x-rays as he does have full range of motion and does not have any tenderness to palpation.
*Critical Care Note
Total Time (30-74mins, 75-104mins- exclusive of procedures): Not Applicable
Update Note
Update Note:
Labs unremarkable. CT scan of the head without any acute abnormality. Given the new dysarthria patient will need admission for MRI. Discussed with hospitalist who accepted
ED Attending Note
-
Portions of this chart may have been created with voice recognition software.� Occasional wrong word or��sound alike� substitutions may have occurred due to the inherent limitations of voice recognition software.
Discharge Plan
Departure
Patient Disposition: Admit
Date of Disposition: 05/30/24
Time of Disposition: 16:35
Presentation/result/management discussed w/ accepting MD/DO: Hospitalist
Discharge Problem:
Dysarthria
Prescriptions:
No Action
aspirin 81 mg Tablet,Chewable
81 mg PO DAILY Qty: 30 0RF
losartan 50 mg Tablet
50 mg PO BID 30 Days Qty: 60 0RF
hydrochlorothiazide 25 mg Tablet
25 mg PO DAILY 30 Days Qty: 30 0RF
atorvastatin 40 mg Tablet
40 mg PO QPM 30 Days Qty: 30 0RF
Referrals:
Yina Nails DO [Family Provider] -
Interventions
Interventions:
*Risk Screen - Suicide Last Done: 05/30/24 14:46
*General Assessment Last Done: 05/30/24 14:46
*Neglect/Abuse Screening Last Done: 05/30/24 14:46
*ED COVID-19 Vaccine History Last Done: 05/30/24 14:46
ED-Musculoskeletal Assessment Last Done: 05/30/24 14:47
ED- Neurological Assessment Last Done: 05/30/24 14:48
ED-Skin Assessment Last Done: 05/30/24 14:47
Discharge Date and Time
Print Language: UKRAINIAN
[2024-05-30 16:03] LABS: ALT (SGPT) 30 U/L (0-50); AST (SGOT) 21 U/L (17-59); Albumin 4.5 g/dl (3.5-5.0); Alkaline Phosphatase 93 U/L (38-126); Blood Urea Nitrogen 12 mg/dl (9-20); Calcium 10.3 mg/dl (8.4-10.2); Carbon Dioxide 27 mmol/L (22-30); Chloride 101 mmol/L (98-107); Estimated Creatinine Clearance 80 ml/min; Glucose 90 mg/dl (70-99); Potassium 3.6 mmol/L (3.5-5.1); Sodium 139 mmol/L (135-145); Total Bilirubin 0.9 mg/dl (0.2-1.3); Total Protein 6.8 g/dl (6.3-8.2); eGFR > 60.00
--- NOTE | 2024-05-30 17:25 | HPS.HSE ---
Addendum entered and electronically signed by Jose Negrete MD 05/30/24 18:00:
Seen and examined by me independently in collaboration with the KENDRICK Begum.
Past medical history/social history/medication/allergies reviewed.
Lab data and imaging data reviewed.
Patient with a recent admission for acute multiple cerebral and cerebellar ischemic infarcts with small associated hemorrhage is felt secondary to uncontrolled hypertension presents back with change in speech which is thick and slurred and as
well as balance issues since yesterday morning at 6 AM. Due to balance issues he fell down at home. Denies any worsening of the weakness on the right side. History of [facility] He
has no difficulty in understanding the words or finding his words. No headache.
At home he says his blood pressure does not fluctuate much and mostly controlled.
No palpitations. No lightheadedness. No orthostatic symptoms.
Denies any focal infective symptoms.
Neurologically right upper extremity 4+/5 and right lower extremity 4+/5 both proximally and distally. No facial asymmetry. No nystagmus. Gait slightly ataxic. Speech is thick but fluent.
CT of the head shows no acute changes compared to recent.
Suspect recrudescence of his stroke but rule out any new acute infarct;CT head shows no acute hemorrhage. Admit as an observation. Continue with his home medication including aspirin for now. MRI brain .Consult neurology.Follow BP closely ; tele
monitor.
Original Note:
Family Physician
-
Family Physician: Yina Nails
Chief Complaint
-
Slurred Speech
History of Present Illness
Patient is a 64 y/o male past medical history of hypertension, and recent stroke who presents with slurred speech. Patient reports yesterday his right leg (which has been weak since the stroke) gave out and he fell. He reports since the fall his
speech has been different, described as 'thick'. Today he was seen at outpatient therapy who noted his speech to be slurred, and he seemed to have more difficulty with his balance, so they referred him to the emergency department for evaluation.
Patient denies difficulty with his balance.
Medical History
Past Medical History
Past Medical History: Reports Other
Additional Past Medical History:
Hypertension
Hyperlipidemia
Multiple Strokes
Past Surgical History: Reports Other
Additional Past Surgical History:
Dental Procedures
Social History
Tobacco: Smoker (09/28 PPD)
Alcohol: Occasional
Drug: None
Family History
Family History: Other (Mother: Renal Cancer, HTN Father: Pancreatic Cancer, HTN Brother / Sister: HTN)
Allergies / Home Medications
Allergies reflects when Allergies were last updated in [employer].
Home Medications with original date entered in [employer]
Allergy/Medication List:
Allergies
Allergy/AdvReac Type Severity Reaction Status Date / Time
No Known Allergies Allergy Unverified 04/21/24 17:44
Home Medications
aspirin 81 mg chewable tablet 81 mg PO DAILY cva #30 tabs 04/25/24
atorvastatin 40 mg tablet 40 mg PO QPM cva, cholesterol 30 days #30 tabs 05/09/24
hydrochlorothiazide 25 mg tablet 25 mg PO DAILY blood pressure 30 days #30 tabs 05/09/24
losartan 50 mg tablet 50 mg PO BID blood pressure 30 days #60 tabs 05/09/24
Review of Systems
-
A 12 point ROS was completed and negative except as noted: Yes
Constitutional: Denies Fever or Chills
Respiratory: Denies Cough or Trouble Breathing
Cardiac: Denies Chest Pain or Palpitations
Physical Exam
Vital Signs
Vital Signs
Temp Pulse Resp BP Pulse Ox
98.4 F 61 21 148/78 98
05/30/24 14:30 05/30/24 15:45 05/30/24 15:45 05/30/24 15:36 05/30/24 15:45
Physical Exam
General: Comfortable and Conversant
HEENT: Anicteric and Moist mucous membranes
Respiratory: Clear and Non Labored Respirations
Cardiac: S1/S2 and Regular Rhythm
GI: Soft and Non Tender
Rectal: Deferred by Provider
Musculoskeletal: No Clubbing, No Cyanosis and No Edema
Skin: Warm and Dry
Neuro: Awake, Alert, Oriented, Slurred Speech (Speech is thick) and Other (4/5 Strength RUE/RLE; 5/5 Strength LUE/LLE - Difficulty with Finger to Nose on the Right ); No Facial Droop
Psych: Calm
Laboratory Results
-
05/30/24 14:54
05/30/24 14:54
Laboratory Results
PT 13.9 Sec (11.4-14.6) 05/30/24 14:54
INR 1.07 05/30/24 14:54
APTT 32.4 Sec (23.4-35.0) 05/30/24 14:54
Total Bilirubin 0.9 mg/dl (0.2-1.3) 05/30/24 14:54
AST 21 U/L (17-59) 05/30/24 14:54
ALT 30 U/L (0-50) 05/30/24 14:54
Alkaline Phosphatase 93 U/L (38-126) 05/30/24 14:54
Data Reviewed
-
CT Scan: Report Reviewed by me
Lab Data: Labs Reviewed by me
Old Records: Reviewed
Impression/Plan
-
Slurred Speech, suspect recrudescence of prior Stroke (more likely) vs. New Stroke
-Consult Neurology
-Check Brain MRI
-Continue aspirin
-Consult PT/OT and Speech
-Continue Neuro-Checks
Essential Hypertension
-Continue losartan and HCTZ
Hyperlipidemia
-Continue atorvastatin
DVT proph: SCDs
Code Status: Full Code
[2024-05-30] MEDS: COZAAR 50 MG PO (19:45)
[2024-05-30] MEDS: LIPITOR 40 MG PO (19:45)
[2024-05-31] VITALS (8 sets, daily range): BP systolic 108–141; BP diastolic 51–82; PULSE 53–74; O2SAT 98–99
[2024-05-31 05:49] LABS: Hematocrit 41.4 % (39.0-52.0); Hemoglobin 14.9 g/dL (13.0-18.0); Mean Corpuscular Hgb 31.6 pg (27.0-31.0); Mean Corpuscular Volume 87.9 fL (80.0-94.0); Mean Platelet Volume 9.4 fL (7.4-10.4); Platelet Count 334 10^3/uL (130-400); Red Blood Cell Count 4.71 10^6/uL (4.70-6.10); Red Cell Dist. Width 12.9 % (11.5-14.5); White Blood Cell Count 9.8 10^3/uL (4.8-10.8)
[2024-05-31 06:12] LABS: Blood Urea Nitrogen 11 mg/dl (9-20); Calcium 9.8 mg/dl (8.4-10.2); Carbon Dioxide 24 mmol/L (22-30); Chloride 105 mmol/L (98-107); Estimated Creatinine Clearance 90 ml/min; Glucose 99 mg/dl (70-99); HDL Cholesterol 32 mg/dl; LDL Cholesterol, Calculated 36 mg/dl; Potassium 3.9 mmol/L (3.5-5.1); Sodium 139 mmol/L (135-145); Total Cholesterol 90 mg/dl (50-199); Triglyceride 112 mg/dl (10-149); Very Low Density Lipoprotein 22 mg/dl (0-30); eGFR > 60.00
[2024-05-31] MEDS: LOW STRENGTH ASPIRIN 81 MG PO (08:34)
[2024-05-31] MEDS: COZAAR 50 MG PO ×2 (08:34→20:09)
[2024-05-31] MEDS: ORETIC 25 MG PO (08:34)
--- NOTE | 2024-05-31 12:46 | PTOTSP ---
Speech Therapy Assessment
Patient presents with a mild to moderate dysarthria characterized by imprecise articulation and hypernasality. Overall intelligibility is functionally intact. Expressive and receptive language skills are within functional limits with occasional
sound/word paraphasias. Patient scored below average on MOCA cognitive screening receiving a (normal score 26+). Errors mainly in the area of memory. Patient was receiving outpatient PT/OT prior to admission and while ST for cognitive deficits
was recommended, the patient declined more than evaluation.
Recommend:
1. Follow up therapy at discharge to address cognitive deficits either through OT or ST.
2. Swallowing - wfl with no changes to current diet of regular solids and thin liquids.
3. ST will follow up as able to further assess and treat cognitive communication deficits.
--- NOTE | 2024-05-31 13:20 | CM ---
Patient out of the room for testing. CM will return to complete assessment.
--- NOTE | 2024-05-31 13:49 | CON.NEURO4 ---
Documented by User: Shima Castrejon NP 05/31/24 15:56
Consultation - Neurology 4
-
CONSULTING PHYSICIAN: Gary Swift MD
REFERRING PHYSICIAN: Hospitalists/Shy Pardo PA-C
DICTATED BY: JESSICA Carter
DATE/TIME OF REQUEST: 05/30/24
DATE/TIME OF CONSULTATION: 05/31/24
Reason for Consultation: Dysarthria
History of Present Illness:
This is a 64-year-old RH male who has presented to the hospital with report of a fall at home, ataxia, and dysarthria. Patient was recently evaluated by our inpatient Neurology service in March 2024 for report of a three day history of right-sided
weakness and numbness, bp was 240/135, at which time he was found to have an acute ischemic stroke.
From previous evaluation by Neurology Dr. Del Valle on 04/24/24:
'63-year-old man with longstanding uncontrolled hypertension presenting the hospital with right-sided weakness and slurred speech has been found to have bilateral acute multi territory ischemic strokes had significantly elevated blood pressure to
the 220s systolic on admission.
Neurologic examination significant for some right arm drift and hand coordination along with mild ataxia in the right arm
Brain MRI reviewed along with MRA of the head and neck there are bilateral acute infarcts no significant intracranial occlusions or stenosis in the MCA arteries.
Assessment: Stroke etiology is most likely atheroembolic from uncontrolled hypertension, less likely given the clinical context of years of uncontrolled hypertension would be a cardioembolic stroke or atheroembolic stroke from aorta.
Recommendations
-Will pursue aspirin monotherapy rather than DAPT because a couple of small microhemorrhages in the brain which are due to chronic uncontrolled hypertension
-Pursue slow resumption of normotension would not aggressively normalize blood pressure given years of longstanding hypertension
-Continue statin
-Neurologic checks NIH stroke scales
-PT OT evaluations PMNR evaluations
-Would pursue short-term cardiac monitoring but if this is negative I would not pursue implanted Linq as suspicion for occult arrhythmia is low given clinical context of longstanding hypertension'
Patient was discharged from [facility] about two weeks ago. He reports ongoing right-sided weakness. Two days ago on 05/29/24 upon waking at 0600, he reports having new onset 'thick' speech and balance issues. He reports that his RLE 'gave out' on
him causing him to fall down injuring his left hand and scraping his knees and elbows, he denies hitting his head. Yesterday (05/30/24), he was at physical therapy and the therapist noted that his balance was worse than usual, and he was referred to
the ER for evaluation. CT head was obtained on arrival and was negative for any acute findings. He denies any headache, dizziness, vision changes, swallowing difficulty, new numbness/weakness, chest pain, palpitations, and shortness of breath. He
notes that his speech has improved since two days ago but is still 'thick' feeling and his gait is ataxic. He is taking aspirin 81mg daily and denies missing any doses. He was not a candidate for TNK/IAT due to symptom onset >24 hours prior to
arrival.
Past Medical History: Bilateral multi territory ischemic strokes March 2024, HTN, HLD
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
Family History: Reviewed and noncontributory.
Social History: Current smoker 1/2 PPD. Former alcohol. Denies illicit drug use.
Allergies: No known allergies.
Home Medications: See below.
Review of Symptoms:
Patient denies any fever, headache, chest pain, shortness of breath, GI or symptoms.
�Per the HPI.�All systems are reviewed negative except above.
Physical Exam:
The patient is afebrile, abdomen is nondistended, breathing is unlabored, skin is warm and dry, no edema.
NIH Stroke Scale:
I performed the NIH stroke scale on the patient on 05/31/24 at 1500. The patient scored 3 points on the NIH stroke scale assessment, which were assigned as follows: See below.
Neurologic Examination:
The patient is awake, alert and oriented x 3. He is able to follow commands and answer questions appropriately. There is no aphasia. There is mild dysarthria. On cranial nerve assessment, pupils are 3 mm bilateral, round and reactive to light and
accommodation. Visual mancini are full. Extraocular movements are intact. Facial sensations are intact and bilaterally symmetrical, there is no facial asymmetry. Hearing is intact bilaterally to normal conversation volume. Tongue palate and uvula are
midline. Sternocleidomastoid strengths are full bilaterally. Motor strengths are 5/5 left upper, 5-/5 RUE, 5/5 LLE, 5-/5 RLE on medical research Crow scale. There is drift in the RUE. No involuntary movement noted. Deep tendon reflexes are 1+
bilateral upper and lower extremities and Babinski is absent bilaterally. Sensations of touch, temperature and vibration are intact and bilaterally symmetrical. There was no extinction noted on double simultaneous stimulation. Coordination is ataxic
in the RUE.
Lab Results: See below.
Neuro Imaging:
1. CT Head 05/30/24: No acute intracranial abnormality. Multiple scattered small chronic appearing infarcts, as detailed above. An MRI would be more sensitive if there is persistent clinical concern for acute ischemia.
2. MRI Brain 05/31/24: New acute to subacute infarct in the left brigida measuring 1.1 cm. Numerous additional infarcts are redemonstrated including subacute to chronic infarcts in the left santiago radiata, and multiple chronic infarcts in the bilateral
basal ganglia, thalami, santiago radiata, right lateral brigida.
3. MRI Brain 04/22/24: 9 mm ACUTE ISCHEMIC INFARCT in the LEFT FRONTAL LOBE SANTIAGO RADIATA. 5 mm acute to subacute ischemic infarct in the anterior right basal ganglia. 4.8 mm and 1.3 cm subacute ischemic infarcts in the left santiago radiata. Small
chronic ischemic infarcts in the right santiago radiata, thalami, and brigida. Moderate white matter leukoaraiosis in both cerebral hemispheres. Mild diffuse cerebral and cerebellar volume loss. Small to moderate number of tiny intraparenchymal
microhemorrhages in the brainstem and cerebellum consistent with HYPERTENSIVE MICROANGIOPATHY.
4. MRA head/neck 04/22/24: Mild atherosclerotic plaque in both proximal internal carotid arteries causing less than 25% diameter stenosis. 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 70% diameter stenosis at the origin of the right vertebral
artery.
Differentials for the patient's presentation include:
1. Acute left pontine ischemic infarct demonstrated on MRI brain imaging.
2. Subacute/chronic infarcts in the left santiago radiata, b/l basal ganglia, thalami, santiago radiata, and right lateral brigida.
3. MRI brain 04/22/24 demonstrates numerous tiny intraparenchymal microhemorrhages in the brainstem and cerebellum consistent with hypertensive microangiopathy.
Patient has the following risk factors for their symptoms: HTN, HLD, recent CVA
IV Tenecteplase/IAT candidacy: He was not a candidate for TNK/IAT due to symptom onset >24 hours prior to arrival.
Recommendations:
-Continue aspirin 81mg daily. Add clopidogrel 75mg daily for 21 days.
-Goal normotension as symptom onset was >24 hours ago.
-Consider Cardiology evaluation for consideration of MELO/ILR
-LDL goal <70. LDL is 36. Continue home atorvastatin 40mg daily.
-Goal normoglycemia, hbA1c is 5.6.
-Checking blood work for metabolic abnormalities.
-NIHSS and neurological checks per unit guidelines.
-Provide patient with a stroke education packet.
-Smoking cessation counseling.
-PT/OT/ST evaluations.
-DVT prophylaxis.
Discussed patient care with: Dr. Swift, the patient
Vital Signs and Labs
-
Vital Signs and Labs:
Vital Signs
Temp Pulse Resp BP Pulse Ox
98.0 F 52 16 123/69 97
05/31/24 07:20 05/31/24 08:34 05/31/24 07:20 05/31/24 08:34 05/31/24 07:20
Lab Results
05/31/24 05:30
05/31/24 05:30
PT 13.9 Sec (11.4-14.6) 05/30/24 14:54
INR 1.07 05/30/24 14:54
APTT 32.4 Sec (23.4-35.0) 05/30/24 14:54
Sodium 139 mmol/L (135-145) 05/31/24 05:30
Potassium 3.9 mmol/L (3.5-5.1) 05/31/24 05:30
BUN 11 mg/dl (9-20) 05/31/24 05:30
Glucose 99 mg/dl (70-99) 05/31/24 05:30
Calcium 9.8 mg/dl (8.4-10.2) 05/31/24 05:30
LDL Cholesterol, Calc 36 mg/dl 05/31/24 05:30
Medications
-
Active Medications
Generic Name Dose Route Start Last Admin
Trade Name Freq PRN Reason Stop Dose Admin
Acetaminophen 650 mg 05/30/24 18:42
Acetaminophen 650 Mg Rectal Suppository RECTAL 06/27/24 18:41
Q4HPRN PRN
COLON, mild pain, or temp >100.4F
Acetaminophen 650 mg 05/30/24 18:42
Acetaminophen 325 Mg Tablet PO 06/27/24 18:41
Q4HPRN PRN
COLON, mild pain, or temp >100.4F
Aspirin 81 mg 05/31/24 08:00 05/31/24 08:34
Aspirin 81 Mg Chewable Tablet PO 06/28/24 07:59 81 mg
DAILY MICHAEL Administration
Atorvastatin Calcium 40 mg 05/30/24 18:42 05/30/24 19:45
Atorvastatin (Lipitor) 40 Mg Tablet PO 06/27/24 18:41 40 mg
QPM MICHAEL Administration
Clopidogrel Bisulfate 75 mg 05/31/24 16:00
Clopidogrel 75 Mg Tablet PO 06/21/24 15:59
DAILY MICHAEL
Hydrochlorothiazide 25 mg 05/31/24 08:00 05/31/24 08:34
Hydrochlorothiazide 25 Mg Tablet PO 06/28/24 07:59 25 mg
DAILY MICHAEL Administration
Losartan Potassium 50 mg 05/30/24 20:00 05/31/24 08:34
Losartan 50 Mg Tablet PO 06/27/24 19:59 50 mg
BID MICHAEL Administration
Sodium Chloride 0 flush 05/30/24 19:00
Sodium Chloride 0.9% (Flush) Syringe IV 06/27/24 18:59
PER PROTOCOL MICHAEL
Home Medications
�Medication �Instructions �Recorded
aspirin 81 mg chewable tablet 81 mg PO DAILY cva #30 tabs 04/25/24
atorvastatin 40 mg tablet 40 mg PO QPM cva, cholesterol 30 05/09/24
days #30 tabs
hydrochlorothiazide 25 mg tablet 25 mg PO DAILY blood pressure 05/09/24
days #30 tabs
losartan 50 mg tablet 50 mg PO BID blood pressure 05/09/24
days #60 tabs
NIH Stroke Score
Subsequent NIH Scale
Date of Subsequent NIH Scale: 05/31/24
Time of Subsequent NIH Scale: 15:00
NIH Stroke Score
Level of Consciousness: 0 - Alert
LOC Questions: 0-Answers both correctly
LOC Commands: 0-Performs both correctly
Best Horizontal Gaze: 0-Normal
Visual Mancini: 0=Normal, no visual loss
Facial Palsy: 0=Normal, symmetrical
Motor - Right Arm: 1=Drift < 10 seconds
Motor - Left Arm: 0=No drift 10 seconds
Motor - Right Le-No drift 5 seconds
Motor - Left Le-No drift 5 seconds
Limb Ataxia: 1-Present in one limb
Sensation: 0-Normal
Best Language: 0-No aphasia
Dysarthria: 1-Mild slurring
Extinction and Inattention: 0-No abnormality
Total Score:: 3
Modified Sanborn (mRS) Score
Modified Sanborn Scale (mRS): Slight disability. Able to look after own affairs.
Score: 2
Alteplase Contraindication
Inclusion and Exclusion criteria reviewed: Yes
Reasons for NON-Tx with Thrombolytics ABSOLUTE Exclusions: Greater than 4.5 hrs from onset of sxs
IAT Contraindications: NIHSS < 6

Documented by User: Gary Swift MD 06/02/24 11:26
Consultation - Neurology 4
-
CONSULTING PHYSICIAN: Gary Swift MD
REFERRING PHYSICIAN: Hospitalists/Shy Pardo PA-C
DICTATED BY: JESSICA Carter
DATE/TIME OF REQUEST: 05/30/24
DATE/TIME OF CONSULTATION: 05/31/24
Reason for Consultation: Dysarthria
History of Present Illness:
This is a 64-year-old RH male who has presented to the hospital with report of a fall at home, ataxia, and dysarthria. Patient was recently evaluated by our inpatient Neurology service in March 2024 for report of a three day history of right-sided
weakness and numbness, bp was 240/135, at which time he was found to have an acute ischemic stroke.
From previous evaluation by Neurology Dr. De lValle on 04/24/24:
'63-year-old man with longstanding uncontrolled hypertension presenting the hospital with right-sided weakness and slurred speech has been found to have bilateral acute multi territory ischemic strokes had significantly elevated blood pressure to
the 220s systolic on admission.
Neurologic examination significant for some right arm drift and hand coordination along with mild ataxia in the right arm
Brain MRI reviewed along with MRA of the head and neck there are bilateral acute infarcts no significant intracranial occlusions or stenosis in the MCA arteries.
Assessment: Stroke etiology is most likely atheroembolic from uncontrolled hypertension, less likely given the clinical context of years of uncontrolled hypertension would be a cardioembolic stroke or atheroembolic stroke from aorta.
Recommendations
-Will pursue aspirin monotherapy rather than DAPT because a couple of small microhemorrhages in the brain which are due to chronic uncontrolled hypertension
-Pursue slow resumption of normotension would not aggressively normalize blood pressure given years of longstanding hypertension
-Continue statin
-Neurologic checks NIH stroke scales
-PT OT evaluations PMNR evaluations
-Would pursue short-term cardiac monitoring but if this is negative I would not pursue implanted Linq as suspicion for occult arrhythmia is low given clinical context of longstanding hypertension'
Patient was discharged from [facility] about two weeks ago. He reports ongoing right-sided weakness. Two days ago on 05/29/24 upon waking at 0600, he reports having new onset 'thick' speech and balance issues. He reports that his RLE 'gave out' on
him causing him to fall down injuring his left hand and scraping his knees and elbows, he denies hitting his head. Yesterday (05/30/24), he was at physical therapy and the therapist noted that his balance was worse than usual, and he was referred to
the ER for evaluation. CT head was obtained on arrival and was negative for any acute findings. He denies any headache, dizziness, vision changes, swallowing difficulty, new numbness/weakness, chest pain, palpitations, and shortness of breath. He
notes that his speech has improved since two days ago but is still 'thick' feeling and his gait is ataxic. He is taking aspirin 81mg daily and denies missing any doses. He was not a candidate for TNK/IAT due to symptom onset >24 hours prior to
arrival.
Past Medical History: Bilateral multi territory ischemic strokes March 2024, HTN, HLD
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
Family History: Reviewed and noncontributory.
Social History: Current smoker 1/2 PPD. Former alcohol. Denies illicit drug use.
Allergies: No known allergies.
Home Medications: See below.
Review of Symptoms:
Patient denies any fever, headache, chest pain, shortness of breath, GI or symptoms.
�Per the HPI.�All systems are reviewed negative except above.
Physical Exam:
The patient is afebrile, abdomen is nondistended, breathing is unlabored, skin is warm and dry, no edema.
NIH Stroke Scale:
I performed the NIH stroke scale on the patient on 05/31/24 at 1500. The patient scored 3 points on the NIH stroke scale assessment, which were assigned as follows: See below.
Neurologic Examination:
The patient is awake, alert and oriented x 3. He is able to follow commands and answer questions appropriately. There is no aphasia. There is mild dysarthria. On cranial nerve assessment, pupils are 3 mm bilateral, round and reactive to light and
accommodation. Visual mancini are full. Extraocular movements are intact. Facial sensations are intact and bilaterally symmetrical, there is no facial asymmetry. Hearing is intact bilaterally to normal conversation volume. Tongue palate and uvula are
midline. Sternocleidomastoid strengths are full bilaterally. Motor strengths are 5/5 left upper, 5-/5 RUE, 5/5 LLE, 5-/5 RLE on medical research Crow scale. There is drift in the RUE. No involuntary movement noted. Deep tendon reflexes are 1+
bilateral upper and lower extremities and Babinski is absent bilaterally. Sensations of touch, temperature and vibration are intact and bilaterally symmetrical. There was no extinction noted on double simultaneous stimulation. Coordination is ataxic
in the RUE.
Lab Results: See below.
Neuro Imaging:
1. CT Head 05/30/24: No acute intracranial abnormality. Multiple scattered small chronic appearing infarcts, as detailed above. An MRI would be more sensitive if there is persistent clinical concern for acute ischemia.
2. MRI Brain 05/31/24: New acute to subacute infarct in the left brigida measuring 1.1 cm. Numerous additional infarcts are redemonstrated including subacute to chronic infarcts in the left santiago radiata, and multiple chronic infarcts in the bilateral
basal ganglia, thalami, santiago radiata, right lateral brigida.
3. MRI Brain 04/22/24: 9 mm ACUTE ISCHEMIC INFARCT in the LEFT FRONTAL LOBE SANTIAGO RADIATA. 5 mm acute to subacute ischemic infarct in the anterior right basal ganglia. 4.8 mm and 1.3 cm subacute ischemic infarcts in the left santiago radiata. Small
chronic ischemic infarcts in the right santiago radiata, thalami, and brigida. Moderate white matter leukoaraiosis in both cerebral hemispheres. Mild diffuse cerebral and cerebellar volume loss. Small to moderate number of tiny intraparenchymal
microhemorrhages in the brainstem and cerebellum consistent with HYPERTENSIVE MICROANGIOPATHY.
4. MRA head/neck 04/22/24: Mild atherosclerotic plaque in both proximal internal carotid arteries causing less than 25% diameter stenosis. 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 70% diameter stenosis at the origin of the right vertebral
artery.
Differentials for the patient's presentation include:
1. Acute left pontine ischemic infarct demonstrated on MRI brain imaging.
2. Subacute/chronic infarcts in the left santiago radiata, b/l basal ganglia, thalami, santiago radiata, and right lateral brigida.
3. MRI brain 04/22/24 demonstrates numerous tiny intraparenchymal microhemorrhages in the brainstem and cerebellum consistent with hypertensive microangiopathy.
Patient has the following risk factors for their symptoms: HTN, HLD, recent CVA
IV Tenecteplase/IAT candidacy: He was not a candidate for TNK/IAT due to symptom onset >24 hours prior to arrival.
Recommendations:
-Continue aspirin 81mg daily. Add clopidogrel 75mg daily for 21 days.
-Goal normotension as symptom onset was >24 hours ago.
-Consider Cardiology evaluation for consideration of MELO/ILR
-LDL goal <70. LDL is 36. Continue home atorvastatin 40mg daily.
-Goal normoglycemia, hbA1c is 5.6.
-Checking blood work for metabolic abnormalities.
-NIHSS and neurological checks per unit guidelines.
-Provide patient with a stroke education packet.
-Smoking cessation counseling.
-PT/OT/ST evaluations.
-DVT prophylaxis.
Discussed patient care with: Dr. Swift, the patient
Addendum:: Neurology attending note
Chief complaint right-sided weakness and unsteady
History of presenting illness:64-year-old RH male who was admitted to the hospital with slurred speech unsteady gait and falls. Patient was recently evaluated by Neurology in March 2024 for report of a three day history of right-sided weakness and
numbness, bp was 240/135, at which time he was found to have an acute ischemic lacunar infarcts in the left santiago radiator right basal ganglia and subcortical
O/E: Patient is awake alert oriented to person place and time speech is fluent with intact comprehension. Cranial nerve examination was nonfocal. Motor examination shows mild weakness on the right side
Coordination: Dysmetric right upper extremity. Romberg's positive gait unsteady
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
PLAN: Continue dual antiplatelet therapy aspirin 81 mg and Plavix 75 mg. Strict blood pressure control. Stop smoking. PT/OT. Cardiology evaluation for MELO
NIH Stroke Score
NIH Stroke Score
Total Score:: 3
Modified Juani (mRS) Score
Score: 2
--- NOTE | 2024-05-31 14:18 | W.PN.HOSP.TC ---
Today's Communication/Plan
-
Continue with current antihypertensives and case monitor. Await neurology input. Consider MELO.
Assessment / Plan
Assessment / Plan
Slurred Speech due to balance issues in the fall.
Patient with prior stroke and subtle right sided weakness which is no different.
MRI shows a new left pontine ischemic infarct. No hemorrhage.
Unclear etiology for recurrent stroke. The last stroke was attributed to uncontrolled hypertension which is now adequately controlled.
Continue with the telemetry-so far no events
Consider MELO.
-Continue aspirin
-Consult PT/OT and Speech
-Continue Neuro-Checks
Essential Hypertension
-Continue losartan and HCTZ
Hyperlipidemia
-Continue atorvastatin
DVT proph: SCDs
Code Status: Full Code
Total time spent on today's encounter was 52 minutes which included time spent in counseling the patient regarding diagnosis and treatment plan as listed above, goals of care, and symptom management. Case was discussed with nursing staff,
specialists . All labs and imaging personally reviewed by me. Remainder the time spent in detailed review of previous records, lab data, imaging, and other medical provider documentation.
Anticipated Discharge: > 48 hours
Subjective/Interval History
-
Date of Service: May 31, 2024
Speech is better.
The balance is still an issue for him.
Subtle right sided weakness as before without any changes.
No headache.
Objective Data
-
Labs:
Laboratory Results
05/31/24
05:30
WBC 9.8
Hgb 14.9
Hct 41.4
Plt Count 334
Sodium 139
Potassium 3.9
Chloride 105
Carbon Dioxide 24
BUN 11
Creatinine 0.8
Glucose 99
Calcium 9.8
Vital Signs:
Vital Signs
Temp Pulse Resp BP Pulse Ox
98.0 F 52 16 123/69 97
05/31/24 07:20 05/31/24 08:34 05/31/24 07:20 05/31/24 08:34 05/31/24 07:20
I&O
05/30/24 05/31/24 06/01/24
06:59 06:59 06:59
Intake Total 120 / 120
Output Total 100 / 100
Balance
Review of Systems
-
Respiratory: Denies Trouble Breathing
Cardiac: Denies Chest Pain or Palpitations
Abdomen/GI: Denies Abdominal Pain, Nausea or Vomiting
Physical Exam
-
General: No Apparent Distress
HEENT: Moist Mucous Membranes
Respiratory: Clear to Auscultation
Cardiac: Regular Rhythm and S1/S2
Neuro: AO x 3; Negative No Motor Deficits (rt sided strength as yesterday( pt sitting in his chair)) or Tremors
Psych: Calm; Negative Confused
Data Reviewed
-
MRI: Report Reviewed by me (MRI brain)
Labs: Labs Reviewed by me
--- NOTE | 2024-05-31 16:10 | CM ---
Patient seen at bedside. Patient states that he lives alone in a one story home. Patient has one step to enter. Patient has walker, cane but does not use them. Patient PCP is Dr. Naisl and he uses the [facility]. Patient wants to go home, and
not stay for another week of therapy but agreed to consider [facility] for another stay as he has a new CVA per patient. CM will send referral to [facility] and physician updated with request for PM&R consult. 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
called, unable to provide any information she asked about patient applying for disability. She expressed understanding that no information could be given and will [facility]. CM will continue to follow for discharge planning needs.
Plan; [facility] vs outpatient therapy vs SNF pending PT/OT assessments
[2024-05-31 16:34] LABS: Folate 7.1 ng/ml (2.76-20); Vitamin B12 227 pg/ml (239-931)
[2024-05-31] MEDS: PLAVIX 75 MG PO (17:09)
[2024-05-31] MEDS: LIPITOR 40 MG PO (17:09)
[2024-06-01] VITALS (8 sets, daily range): BP systolic 102–133; BP diastolic 53–77; PULSE 62–63; O2SAT 99–100
[2024-06-01] MEDS: LOW STRENGTH ASPIRIN 81 MG PO (07:11)
[2024-06-01] MEDS: PLAVIX 75 MG PO (07:14)
[2024-06-01] MEDS: ORETIC PO (07:18)
[2024-06-01] MEDS: COZAAR 50 MG PO ×2 (07:18→19:39)
--- NOTE | 2024-06-01 09:23 | PTOTSP ---
Dysphagia Evaluation
Patient with WFL-mild oral stage dysphagia and cannot rule out pharyngeal dysphagia bedside - though patient without c/o stasis or signs of aspiration. If concerned for silent aspiration given left brigida and prior right lateral brigida CVA, consider
video swallow study. Patient consented to this as needed.
Recommend:
1. Regular, Thin
2. Medications - as best tolerated
3. General aspiration precautions
4. Video swallow study if concerned for pharyngeal dysphagia/silent aspiration.
5. Outpatient [employer]CH[employer]ING [employer]OR consult for cognitive linguistic evaluation/tx/
--- NOTE | 2024-06-01 09:43 | CON.MD ---
Documented by User: Delmis Adrian MD, Resident 06/01/24 16:38
Consultation - Medical
-
Chief Complaint: CVA
History of Present Illness: 64 year old right handed man presented to ER after a fall on 05/30/24. He did not hit his head or lose consciousness. Patient reported he had more weakness on his legs and some increased slurring speech. MRI showed a
new left pontine ischemic infarct with no hemorrhage. The patient was not a candidate for thrombolytics due to symptom onset greater than 24 hours prior to arrival. He was started on Plavix in addition to his usual aspirin, antihypertensives, and
statin. The patient has a PMH of CVA which he had it recently on 04/21/24. His previous CVA resulted with right sided weakness and he was admitted to acut rehab unit and was discharged on 05/09/24. The patient reported he was mostly independent
with his daily life after he was discharged from the rehabilitation unit.
Past Medical History: Uncontrolled HTN
Procedure History: none
Family History: noncontributory
Social History:
Functional Level Premorbidly: Independent with all activities
Functional Level Currently: Sit to stand- Supervision, -Stand to sit- Supervision, -Stand/pivot/sit- Not tested, -Ambulation 50 FEET X 4 WITH/WITHOUT A
SINGLE POINT CANE AND MIN ASSIST FOR BALANCE, HAD 1 LARGE LOSS OF BALANCE TO THE RIGHT WITH A QUICK TURN TO THE RIGHT
Tobacco: smoker
Alcohol: Denies
Drug use: Denies
Lives with: Alone
24-hour assistance available: No
Number of floors: 1
# steps to enter: 1
Driving: No since 04/19
Occupation:Not working
Allergies
Allergy/AdvReac Type Severity Reaction Status Date / Time
No Known Allergies Allergy Unverified 04/21/24 17:44
Home Medications
aspirin 81 mg chewable tablet 81 mg PO DAILY cva #30 tabs 04/25/24
atorvastatin 40 mg tablet 40 mg PO QPM cva, cholesterol 30 days #30 tabs 05/09/24
hydrochlorothiazide 25 mg tablet 25 mg PO DAILY blood pressure 30 days #30 tabs 05/09/24
losartan 50 mg tablet 50 mg PO BID blood pressure 30 days #60 tabs 05/09/24
Review of Systems:
Constitutional: (x) Normal _
Eye: (x) Normal _
Ear/Nose/Throat: (x) Normal _
Respiratory: (x) Normal _
Cardiovascular: (x) HT
Gastrointestinal: (x) Normal _
Genitourinary: (x) Normal _
Musculoskeletal: (x) Normal _
Integumentary: (x) Normal _
Neurologic: (x) cva
Psychiatric: (x) Normal _
Endocrine: (x) Normal _
Hematologic/Lymphatic: (x) Normal _
Allergic/Immunologic: (x) Normal _
Vitals:
Vital Signs
Temp Pulse Resp BP Pulse Ox
97.7 F 62 16 112/64 96
06/01/24 07:59 06/01/24 07:59 06/01/24 07:59 06/01/24 07:59 06/01/24 07:59
Laboratory Data
PT 13.9 Sec (11.4-14.6) 05/30/24 14:54
APTT 32.4 Sec (23.4-35.0) 05/30/24 14:54
Total Bilirubin 0.9 mg/dl (0.2-1.3) 05/30/24 14:54
AST 21 U/L (17-59) 05/30/24 14:54
ALT 30 U/L (0-50) 05/30/24 14:54
Alkaline Phosphatase 93 U/L (38-126) 05/30/24 14:54
Lab Results - Hematology
05/30/24 05/31/24
14:54 05:30
WBC 13.1 H 9.8
Lab Results - Chemistry
05/30/24 05/31/24
14:54 05:30
BUN 12 11
Creatinine 0.9 0.8
Estimated Creat Clear 80 90
Albumin 4.5
Physical Exam:
General Appearance/Observation: Well-developed, well-nourished male in no apparent distress.
Pain/Comfort Assessment: Denies
Mood/Affect: Appropriate
Integumentary/Operative Site: No lesions noted during course of exam
Pressure Ulcer Evaluation: absent over heels.
Eyes: Conjunctiva/Lids: normal Pupils: pupils equal round and reactive to light and Accommodation
Ears/Nose/Throat: oral mucosa moist, throat clear. Lips/Teeth/Gums: missing teeth
Neck: No muscle spasm or tenderness
Cardiovascular: Heart: regular, no murmur
Pulses: dorsalis pedis 2+ bilaterally
Respiratory: Respiratory Effort/Chest Expansion: normal Auscultation: Clear to auscultation bilaterally
Gastrointestinal: abdomen not tender, no distension, normal abdominal bowel sounds
Genitourinary: No Neal
Extremities: Edema: None Cyanosis: None Trophic changes: None
Scrotal edema bilaterally
Neurology Exam:
Orientation: Alert, Oriented to self, Time, Place
Memory: Intact for immediate medical concerns
Repetition: Intact
Comprehension: intact
Two step command: slow processing
Naming: Intact
Cranial Nerves:
CNII: Pupillary light reflex: Intact Visual Field: Intact
CN III, IV, : Extraocular muscles: Intact
CN V: Facial Sensation at Forehead: Intact, Maxilla: Intact, Mandible: Intact
CN VII: Facial movement: Right facial weakness
CN VIII: Hearing: Normal
CN IX/X: Speech & swallow: mild dysarthria Position of Uvula: Midline
CN XI: Shoulder shrug: decreased on right
CN XII: Tongue protrusion: Midline
Sensory:
Light touch: Intact in bilateral upper and lower extremities
Reflexes:
Biceps: 2+ bilaterally
Brachioradialis: 2+ bilaterally
Triceps: 2+ bilaterally
Patellar: 2+ bilaterally
Achilles: 2+ bilaterally
Babinski: Down going bilaterally
Clonus: None
Mike: Negative bilaterally
Cerebellar: Dysmetria/Ataxia: right arm drift, mild dysmetria of right hand with finger to nose coordination
Muscle SA EF WE EE FF FA HF KE DF EHL PF
Right 5 5 5 5 5 5 5 5 5 5 5
Left 4 4 4 5 4 4 4 4 5 5 5
Tone: Normal in all extremities
Range of Motion: Passively within normal limits in all extremities
Diagnostic Results: as per HPI
05/31/24: MRI of Brain IMPRESSION:
1. New acute to subacute infarct in the left brigida measuring 1.1 cm.
2. Numerous additional infarcts are re-demonstrated including subacute to chronic infarcts in the left treviño radiata, and multiple chronic infarcts in the bilateral basal ganglia, thalami, treviño radiata, right lateral brigida.
05/30/24: Head CT IMPRESSION:
No acute intracranial abnormality. Multiple scattered small chronic appearing infarcts, as detailed above. An MRI would be more sensitive if there is persistent clinical concern for acute ischemia.
04/22/24: MRI of Brain: IMPRESSION:
1. 9 mm ACUTE ISCHEMIC INFARCT in the LEFT FRONTAL LOBE TREVIÑO RADIATA.
2. 5 mm acute to subacute ischemic infarct in the anterior right basal ganglia.
3. 4.8 mm and 1.3 cm subacute ischemic infarcts in the left treviño radiata.
4. Small chronic ischemic infarcts in the right treviño radiata, thalami, and brigida.
5. Moderate white matter leukoaraiosis in both cerebral hemispheres.
6. Mild diffuse cerebral and cerebellar volume loss.
7. Small to moderate number of tiny intraparenchymal microhemorrhages in the brainstem and cerebellum consistent with HYPERTENSIVE MICROANGIOPATHY.
04/21/24: Head CT 04/21/24 IMPRESSION:
No acute intracranial hemorrhage.
Chronic microvascular white matter ischemic disease.
Multiple chronic lacunar infarcts. Righ
Right brigida age indeterminate, though likely subacute infarct measuring 7 mm.
Comorbidities: none
Assessment
64 year old right handed man presented to ER after a fall on 05/30/24. Patient reported he had more weakness on his legs and some increased slurring speech. MRI showed a new left pontine ischemic infarct with no hemorrhage. The patient has a PMH
of CVA which he had it recently on 04/21/24. His previous CVA resulted with right sided weakness and he was admitted to acut rehab unit and was discharged on 05/09/24. The patient reported he was mostly independent with his daily life after he was
discharged from the rehabilitation unit.
Plan
PT/OT to increase independence with ADLs, improve balance, coordination, endurance, strength, mobility, community reintegration, decreased burden of care on others and family education.
CVA: MRI shows a new left pontine ischemic infarct. No hemorrhage. Unclear etiology for recurrent stroke. The last stroke was attributed to uncontrolled hypertension which is now adequately controlled. Continue aspirin and Plavix
Continue with the telemetry-so far no events . Patient is not agreeable for MELO. Appreciated cardiology input, Would start with 14-day outpatient monitor and if unrevealing consider placement of Linq device to detect a possible cardiac arrhytmia.
right dominant hemiparesis: High risk for falls and sliding out of chair/bed. Safety reinforced.
- Avoid using affected arm to help lift or pull patient as this will cause trauma to the shoulder.
Dysarthria: speech evaluation
HTN losartan and HCTZ
HLD: Atorvastatin 40mg
Psych: Psychology consult. Monitor mood, adjust medications as needed.
Skin: monitor for pressure sores/rashes/lesions.
Pain: acetaminophen as needed.
Bowel: Colace and Senna, PRN bisacodyl.
Bladder: Time void, PVRs, PRN straight cath.
GI Prophylaxis: Pantoprazole 40mg qd
DVT Prophylaxis: venous pump
Pulmonary: Incentive spirometry
Safety: Continue to reinforce assistance with all transfers.
Code Status: Full code
Dispo (date/plan/equipment needs): Home with family care. Social history reviewed. Home care or outpatient PT/OT are the appropriate options for the patient.
Functional and Medical Goals: Modified Independent with ADL�s, ambulation, transfers
Please do not hesitate to contact me with any questions or concerns.
Thanks Dr Castro for involving me in this patient`s care.
Delmis Adrian MD
Transitional Year Res[facility] Program

Documented by User: Luis Antonio Castro MD 06/01/24 23:27
Consultation - Medical
-
Chief Complaint: CVA
History of Present Illness: 64 year old right handed man presented to ER after a fall on 05/30/24. He did not hit his head or lose consciousness. Patient reported he had more weakness on his legs and some increased slurring speech. MRI showed a
new left pontine ischemic infarct with no hemorrhage. The patient was not a candidate for thrombolytics due to symptom onset greater than 24 hours prior to arrival. He was started on Plavix in addition to his usual aspirin, antihypertensives, and
statin. The patient has a PMH of CVA which he had it recently on 04/21/24. His previous CVA resulted with right sided weakness and he was admitted to acut rehab unit and was discharged on 05/09/24. The patient reported he was mostly independent
with his daily life after he was discharged from the rehabilitation unit.
Past Medical History: Uncontrolled HTN
Procedure History: none
Family History: noncontributory
Social History:
Functional Level Premorbidly: Independent with all activities
Functional Level Currently: Sit to stand- Supervision, -Stand to sit- Supervision, -Stand/pivot/sit- Not tested, -Ambulation 50 FEET X 4 WITH/WITHOUT A
SINGLE POINT CANE AND MIN ASSIST FOR BALANCE, HAD 1 LARGE LOSS OF BALANCE TO THE RIGHT WITH A QUICK TURN TO THE RIGHT
Tobacco: smoker
Alcohol: Denies
Drug use: Denies
Lives with: Alone
24-hour assistance available: No
Number of floors: 1
# steps to enter: 1
Driving: No since 04/19
Occupation:Not working
Allergies
Allergy/AdvReac Type Severity Reaction Status Date / Time
No Known Allergies Allergy Unverified 04/21/24 17:44
Home Medications
aspirin 81 mg chewable tablet 81 mg PO DAILY cva #30 tabs 04/25/24
atorvastatin 40 mg tablet 40 mg PO QPM cva, cholesterol 30 days #30 tabs 05/09/24
hydrochlorothiazide 25 mg tablet 25 mg PO DAILY blood pressure 30 days #30 tabs 05/09/24
losartan 50 mg tablet 50 mg PO BID blood pressure 30 days #60 tabs 05/09/24
Review of Systems:
Constitutional: (x) Normal _
Eye: (x) Normal _
Ear/Nose/Throat: (x) Normal _
Respiratory: (x) Normal _
Cardiovascular: (x) HT
Gastrointestinal: (x) Normal _
Genitourinary: (x) Normal _
Musculoskeletal: (x) Normal _
Integumentary: (x) Normal _
Neurologic: (x) cva
Psychiatric: (x) Normal _
Endocrine: (x) Normal _
Hematologic/Lymphatic: (x) Normal _
Allergic/Immunologic: (x) Normal _
Vitals:
Vital Signs
Temp Pulse Resp BP Pulse Ox
97.7 F 62 16 112/64 96
06/01/24 07:59 06/01/24 07:59 06/01/24 07:59 06/01/24 07:59 06/01/24 07:59
Laboratory Data
05/31/24 05:30
05/31/24 05:30
PT 13.9 Sec (11.4-14.6) 05/30/24 14:54
INR 1.07 05/30/24 14:54
APTT 32.4 Sec (23.4-35.0) 05/30/24 14:54
Total Bilirubin 0.9 mg/dl (0.2-1.3) 05/30/24 14:54
AST 21 U/L (17-59) 05/30/24 14:54
ALT 30 U/L (0-50) 05/30/24 14:54
Alkaline Phosphatase 93 U/L (38-126) 05/30/24 14:54
Total Protein 6.8 g/dl (6.3-8.2) 05/30/24 14:54
Albumin 4.5 g/dl (3.5-5.0) 05/30/24 14:54
Physical Exam:
General Appearance/Observation: Well-developed, well-nourished male in no apparent distress.
Pain/Comfort Assessment: Denies
Mood/Affect: Appropriate
Integumentary/Operative Site: No lesions noted during course of exam
Eyes: Conjunctiva/Lids: normal Pupils: pupils equal round and reactive to light and Accommodation
Ears/Nose/Throat: oral mucosa moist, throat clear. Lips/Teeth/Gums: missing teeth
Neck: No muscle spasm or tenderness
Cardiovascular: Heart: regular, no murmur
Pulses: dorsalis pedis 2+ bilaterally
Respiratory: Respiratory Effort/Chest Expansion: normal Auscultation: Clear to auscultation bilaterally
Gastrointestinal: abdomen not tender, no distension, normal abdominal bowel sounds
Genitourinary: No Neal
Extremities: Edema: None Cyanosis: None Trophic changes: None
Scrotal edema bilaterally
Neurology Exam:
Orientation: Alert, Oriented to self, Time, Place
Memory: Intact for immediate medical concerns
Repetition: Intact
Comprehension: intact
Two step command: slow processing
Naming: Intact
Cranial Nerves:
CNII: Pupillary light reflex: Intact Visual Field: Intact
CN III, IV, : Extraocular muscles: Intact
CN V: Facial Sensation at Forehead: Intact, Maxilla: Intact, Mandible: Intact
CN VII: Facial movement: Right facial weakness
CN VIII: Hearing: Normal
CN IX/X: Speech & swallow: mild dysarthria Position of Uvula: Midline
CN XI: Shoulder shrug: decreased on right
CN XII: Tongue protrusion: Midline
Sensory:
Light touch: Intact in bilateral upper and lower extremities
Reflexes:
Biceps: 2+ bilaterally
Brachioradialis: 2+ bilaterally
Triceps: 2+ bilaterally
Patellar: 2+ bilaterally
Achilles: 2+ bilaterally
Babinski: Down going bilaterally
Clonus: None
Mike: Negative bilaterally
Cerebellar: Dysmetria/Ataxia: right arm drift, mild dysmetria of right hand with finger to nose coordination
Muscle SA EF WE EE FF FA HF KE DF EHL PF
Right 5 5 5 5 5 5 5 5 5 5 5
Left 4 4 4 5 4 4 4 4 5 5 5
Tone: Normal in all extremities
Range of Motion: Passively within normal limits in all extremities
Diagnostic Results: as per HPI
05/31/24: MRI of Brain IMPRESSION:
1. New acute to subacute infarct in the left brigida measuring 1.1 cm.
2. Numerous additional infarcts are re-demonstrated including subacute to chronic infarcts in the left treviño radiata, and multiple chronic infarcts in the bilateral basal ganglia, thalami, treviño radiata, right lateral brigida.
05/30/24: Head CT IMPRESSION:
No acute intracranial abnormality. Multiple scattered small chronic appearing infarcts, as detailed above. An MRI would be more sensitive if there is persistent clinical concern for acute ischemia.
04/22/24: MRI of Brain: IMPRESSION:
1. 9 mm ACUTE ISCHEMIC INFARCT in the LEFT FRONTAL LOBE TREVIÑO RADIATA.
2. 5 mm acute to subacute ischemic infarct in the anterior right basal ganglia.
3. 4.8 mm and 1.3 cm subacute ischemic infarcts in the left treviño radiata.
4. Small chronic ischemic infarcts in the right treviño radiata, thalami, and brigida.
5. Moderate white matter leukoaraiosis in both cerebral hemispheres.
6. Mild diffuse cerebral and cerebellar volume loss.
7. Small to moderate number of tiny intraparenchymal microhemorrhages in the brainstem and cerebellum consistent with HYPERTENSIVE MICROANGIOPATHY.
04/21/24: Head CT 04/21/24 IMPRESSION:
No acute intracranial hemorrhage.
Chronic microvascular white matter ischemic disease.
Multiple chronic lacunar infarcts. Righ
Right brigida age indeterminate, though likely subacute infarct measuring 7 mm.
Assessment
64 year old right handed man presented to ER after a fall on 05/30/24. Patient reported he had more weakness on his legs and some increased slurring speech. MRI showed a new left pontine ischemic infarct with no hemorrhage. The patient has a PMH
of CVA which he had it recently on 04/21/24. His previous CVA resulted with right sided weakness and he was admitted to acut rehab unit and was discharged on 05/09/24. The patient reported he was mostly independent with his daily life after he was
discharged from the rehabilitation unit.
Plan
PT/OT to increase independence with ADLs, improve balance, coordination, endurance, strength, mobility, community reintegration, decreased burden of care on others and family education.
CVA: MRI shows a new left pontine ischemic infarct. No hemorrhage. Unclear etiology for recurrent stroke. The last stroke was attributed to uncontrolled hypertension which is now adequately controlled. Continue aspirin and Plavix
Continue with the telemetry-so far no events . Patient is not agreeable for MELO. Appreciated cardiology input, Would start with 14-day outpatient monitor and if unrevealing consider placement of Linq device to detect a possible cardiac arrhythmia.
right dominant hemiparesis: High risk for falls and sliding out of chair/bed. Safety reinforced.
- Avoid using affected arm to help lift or pull patient as this will cause trauma to the shoulder.
Dysarthria: speech evaluation
HTN losartan and HCTZ
HLD: Atorvastatin 40mg
Psych: Psychology consult. Monitor mood, adjust medications as needed.
Pain: acetaminophen as needed.
Bowel: Colace and Senna, PRN bisacodyl.
Bladder: Time void, PVRs, PRN straight cath.
GI Prophylaxis: Pantoprazole 40mg qd
DVT Prophylaxis: venous pump
Pulmonary: Incentive spirometry
Safety: Continue to reinforce assistance with all transfers.
Code Status: Full code
Dispo (date/plan/equipment needs): Home with family care. Social history reviewed. Home care or outpatient PT/OT are the appropriate options for the patient.
Functional and Medical Goals: Modified Independent with ADL�s, ambulation, transfers
Please do not hesitate to contact me with any questions or concerns.
Thanks Dr Castro for involving me in this patient`s care.
Delmis Adrian MD
Transitional Year Residency Program
Attending Statement:
I saw and examined the patient today with resident. Reviewed care plan with patient, and resident. I agree with the above subjective and physical exam, and plan as documented with adjustments made as necessary. Overall 64-year-old male with
recurrent stroke. Notes having controlled blood pressure since discharge from off with prior stroke. Was doing well at home up until this most recent episode. Notes normal blood pressure with his primary care provider and when he was seen in
therapy. He is supervision with all activities, he is getting right outpatient therapy. Based upon his current functional status will benefit best from discharge to home with outpatient therapies to continue. Follow-up with neurology for further
stroke evaluation.
--- NOTE | 2024-06-01 10:38 | CM ---
Patient seen in [facility] with PT. recommendation is for [facility]/acute care. PM&R pending assessment. CM will call to Liaison at [facility] to determine level of need. CM will continue to follow for discharge planning needs.
Plan: English vs home with VN vs outpatient PT/OT
--- NOTE | 2024-06-01 11:46 | CON.CAR ---
Addendum entered and electronically signed by Cory Rhodes DO 06/01/24 21:17:
I saw and examined the patient.
The Bisque Tile Burner's note was reviewed and I agree with the note.
Comment:
Plan:
Given recurrent CVA, MELO recommended and discussed risks and benefits and pt agreeable.
Discussed 14 day monitor and if that is negative that pt would be considered for Implantable monitor.
If AFib seen on monitor pt would be transitioned to anticoagulation
Reviewed with neurology.
Original Note:
Consultation
Consultation Request
Date/Time Consultation Requested: 06/01/24825
Date/Time Consultation Performed: 06/01/241129
Requesting Provider: Jose Negrete MD
Performing Provider: JESSICA Estes for Cory Rhodes DO
Reason for Consultation: stroke, eval for MELO/LINQ
Medical History
-
Chief Complaint: worsened balance and slurred speech
History of Present Illness:
64-year-old male with longstanding uncontrolled hypertension, hyperlipidemia, and status post CVA 04/19 (bilateral multi territory ischemic strokes). At the time of March 2024 admission, he was noted to have significantly elevated blood pressures in
the 220s/. He had not been on antihypertensive therapy prior to admission and was started on losartan and hydrochlorothiazide as well as baby aspirin. He was not started on dual antiplatelet therapy as there were small microhemorrhages on the
brain MRA, thought to be due to chronic uncontrolled hypertension. He was discharged to [facility] and then home for outpatient PT. On the day prior to admission he noted 'thick speech' and right lower extremity weakness triggering a fall at home.
He was seen at his outpatient PT on 05/30/2024 where his therapist noted that his balance was worse, and was sent to the ER for evaluation. Head CT was negative upon arrival and subsequent MRI showed new acute to subacute left brigida infarct. He was
not a candidate for thrombolytics due to symptom onset greater than 24 hours prior to arrival. He was started on Plavix in addition to his usual aspirin, antihypertensives, and statin. Cardiology is consulted for consideration for MELO and
implantable loop recorder.
He denies a history of CAD/AZ/arrhythmia/heart failure/PAD/valvular disorders.
He denies chest pain, shortness of breath, palpitations, lightheadedness, syncope, edema, PND, orthopnea.
PMH:
uncontrolled HTN
Hyperlipidemia
CVA: B/L multiple territory ischemic strokes 04/19
Past Medical History
Past Medical History: Other (as above)
Past Surgical History: Other (dental work)
Social History
Tobacco: Smoker (09/28 ppd)
Alcohol: Former
Drug: None
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
Family History
Family History: Reviewed & Not Pertinent
Allergies / Home Medications
Allergy/AdvReac Type Severity Reaction Status Date / Time
No Known Allergies Allergy Unverified 04/21/24 17:44
�Medication �Instructions �Recorded �Confirmed �Type
aspirin 81 mg chewable tablet 81 mg PO DAILY cva #30 tabs 04/25/24 05/30/24 Rx
atorvastatin 40 mg tablet 40 mg PO QPM cva, cholesterol 05/09/24 05/30/24 Rx
days #30 tabs
hydrochlorothiazide 25 mg tablet 25 mg PO DAILY blood pressure 30 05/09/24 05/30/24 Rx
days #30 tabs
losartan 50 mg tablet 50 mg PO BID blood pressure 05/09/24 05/30/24 Rx
days #60 tabs
Review of Systems
-
History Source: Patient
All other systems: Negative unless noted
Physical Exam
Vital Signs
Temp Pulse Resp BP Pulse Ox
97.8 F 64 16 102/68 98
06/01/24 11:05 06/01/24 11:05 06/01/24 11:05 06/01/24 11:06/01/24 11:05
GEN: No distress, awake, Ox3
HEENT: supple, anicteric, mmm
LUNGS: CTA, no wheezes/rales
CV: Reg, S1/S2, no murmur
ABD: soft, +BS, ND, NT
EXT: No edema
NEURO: Gross non-focal
SKIN: No rash
Lab Results
05/31/24 05:30
05/31/24 05:30
Impression / Plan
-
PCP: Yina Nails
Has not seen a electrical hardware engineer
Impression:
recurrent CVA
- admitted 04/21/2024ilateral acute multi territory ischemic strokes (right sided weakness)
-admitted 05/30/24 - with new left pontine ischemic infarct (dysarthria)
Uncontrolled hypertension
Hyperlipidemia
Severe gag reflex per patient
Previous cardiovascular studies:
Echocardiogram 04/24/2024: EF 60 to 65%, moderate cLVH, LA normal size
Neurologic studies:
Brain MRI: 06/20: New acute to subacute infarct in the left brigida, 1.1 cm. Numerous additional infarcts are redemonstrating including subacute to chronic infarcts.
Brain MRI 04/22/24: acute ischemic infarct L frontal lobe santiago Radiata, multiple acute to subacute ischemic infarcts, sm-mod number of tiny microhemmorhages c/w hypertensive microangiopathy.
Head and neck MRA 04/22/24: B/L ICA <25% atherosclerotic plaque, no MRA evidence large vessel arterial stenosis or occlusion, multple small chronic ischemic infarcts
Personally reviewed telemetry: Normal sinus rhythm, heart rates high 40s to 60s, 3 beat nonsustained VT 06/20 at 1409
EKG 05/30/2024: Normal sinus rhythm, nonspecific T wave abnormality
Plan:
Recurrent CVA: thought to be embolic in origin. Discussed checking MELO to assess for intracardiac thrombi as potential cause for embolic CVAs.. Patient reports severe gag reflex and does not want to undergo procedure that would require tube down
throat. Declining MELO. Also discussed role of long-term arrhythmia monitoring to assess for asymptomatic atrial fibrillation as possible cause for thromboembolism. Would start with 14-day outpatient monitor and if unrevealing consider placement
of Linq device. Explained that if A-fib was detected he would require oral anticoagulation given history of recurrent CVAs.
Hypertension: Longstanding history of uncontrolled hypertension thought to be cause of most recent CVAs. Continue antihypertensive therapy with losartan and hydrochlorothiazide.
Hyperlipidemia: Cont atorvastatin 40 mg. LDL 36.
--- NOTE | 2024-06-01 13:25 | W.PN.HOSP.TC ---
Today's Communication/Plan
-
Await MELO/Linq
cw DAPT
Assessment / Plan
Assessment / Plan
Slurred Speech and balance issues leading to fall.
Patient with prior stroke and subtle right sided weakness which is no different.
MRI shows a new left pontine ischemic infarct. No hemorrhage.
Unclear etiology for recurrent stroke. The last stroke was attributed to uncontrolled hypertension which is now adequately controlled.
Continue with the telemetry-so far no events
Consulted cardiology for MELO/Linq
-Continue aspirin. Plavix added by neurology
-cw PT/OT and Speech
Essential Hypertension
-Continue losartan and HCTZ
Hyperlipidemia
-Continue atorvastatin
DVT proph: SCDs
Code Status: Full Code
Patient has been hypertensive for MELO because he says his gag reflex is very strong. He noted that when he was getting a dental procedure.
Explained to him that he he would have local and conscious sedation unlike for his dental procedure where he does not have any conscious sedation and it may be okay. Also advised to speak with the fluorescent solution mixer regarding anesthesia protocols.
Anticipated Discharge: Within 24 hours
Subjective/Interval History
-
Date of Service: June 01, 2024
Says his speech is back to normal.
Improving balance as well. Denies any new neurological symptoms.
Objective Data
-
Vital Signs:
Vital Signs
Temp Pulse Resp BP Pulse Ox
97.8 F 64 16 102/68 98
06/01/24 11:05 06/01/24 11:05 06/01/24 11:05 06/01/24 11:05 06/01/24 11:05
I&O
05/31/24 06/01/24 06/02/24
06:59 06:59 06:59
Intake Total 120 / 120 960 / 960
Output Total 100 / 100 640 / 640
Balance 20 / 20 320 / 320
Review of Systems
-
Respiratory: Denies Trouble Breathing
Cardiac: Denies Chest Pain or Palpitations
Abdomen/GI: Denies Abdominal Pain, Nausea or Vomiting
Neuro: Denies Dizzy
Physical Exam
-
General: No Apparent Distress and Comfortable
HEENT: Moist Mucous Membranes
Respiratory: Clear to Auscultation
Cardiac: Regular Rhythm and S1/S2
Neuro: AO x 3; Negative No Motor Deficits (right sided strength as prior)
Psych: Calm
[2024-06-01] MEDS: LIPITOR 40 MG PO (17:05)
[2024-06-02 03:00] VITALS: BP 131/63
[2024-06-02 07:49] VITALS: BP 123/70
--- NOTE | 2024-06-02 08:36 | W.PN.CARDCBS ---
Today's Communication / Plan
-
Recurrent CVA, reviewed with neuro and primary service. MELO recommended to assess for thrombus.
MELO negative for thrombus today.
Check 14 day monitor to eval for PAfib and if negative, pt to be considered for implantable monitor. He appeared hesitant to consider this.
If he has Afib, he would be recommended to transition to oral anticoagulation.
Cont bp control with Losartan and HCTZ
Cont Lipitor, LDL 36.
Outpt cardiac follow up.
Impression / Plan
-
.
PCP: Yina Nails
Merchandise Team Manager: None, initially seen by Dr Rhodes
Impression:
Recurrent CVA
-admitted 04/21/2024ilateral acute multi territory ischemic strokes (right sided weakness)
-admitted 05/30/24 - with new left pontine ischemic infarct (dysarthria)
Uncontrolled hypertension
Hyperlipidemia
Severe gag reflex per patient
Previous cardiovascular studies:
Echocardiogram 04/24/2024: EF 60 to 65%, moderate cLVH, LA normal size
Neurologic studies:
Brain MRI: 06/20: New acute to subacute infarct in the left brigida, 1.1 cm. Numerous additional infarcts are redemonstrating including subacute to chronic infarcts.
Brain MRI 04/22/24: acute ischemic infarct L frontal lobe santiago Radiata, multiple acute to subacute ischemic infarcts, sm-mod number of tiny microhemmorhages c/w hypertensive microangiopathy.
Head and neck MRA 04/22/24: B/L ICA <25% atherosclerotic plaque, no MRA evidence large vessel arterial stenosis or occlusion, multple small chronic ischemic infarcts
Personally reviewed telemetry: Normal sinus rhythm, heart rates high 40s to 60s, 3 beat nonsustained VT 06/20 at 1409
EKG 05/30/2024: Normal sinus rhythm, nonspecific T wave abnormality
Plan:
Recurrent CVA, reviewed with neuro and primary service. MELO recommended to assess for thrombus.
MELO negative for thrombus today.
Check 14 day monitor to eval for PAfib and if negative, pt to be considered for implantable monitor. He appeared hesitant to consider this.
If he has Afib, he would be recommended to transition to oral anticoagulation.
Cont bp control with Losartan and HCTZ
Cont Lipitor, LDL 36.
Outpt cardiac follow up.
Progress Note - Merchandise Team Manager
Subjective
Date of Service: June 02, 2024
Pt seen and examined. No complaints. No chest pain or shortness of breath.
Objective
Labs:
05/31/24 05:30
05/31/24 05:30
Labs
Hgb 14.9 g/dL (13.0-18.0) 05/31/24 05:30
Hct 41.4 % (39.0-52.0) 05/31/24 05:30
Plt Count 334 10^3/uL (130-400) 05/31/24 05:30
PT 13.9 Sec (11.4-14.6) 05/30/24 14:54
INR 1.07 05/30/24 14:54
APTT 32.4 Sec (23.4-35.0) 05/30/24 14:54
Sodium 139 mmol/L (135-145) 05/31/24 05:30
Potassium 3.9 mmol/L (3.5-5.1) 05/31/24 05:30
BUN 11 mg/dl (9-20) 05/31/24 05:30
Creatinine 0.8 mg/dL (0.7-1.3) 05/31/24 05:30
Glucose 99 mg/dl (70-99) 05/31/24 05:30
Vital Signs and I&O:
Vital Signs
Temp Pulse Resp BP Pulse Ox
98.9 F 55 16 123/70 97
06/02/24 07:49 06/02/24 07:49 06/02/24 07:49 06/02/24 07:49 06/02/24 07:49
Vital Signs
Temp Pulse Resp BP Pulse Ox
98.9 F 55 16 123/70 97
06/02/24 07:49 06/02/24 07:49 06/02/24 07:49 06/02/24 07:49 06/02/24 07:49
Intake & Output
05/31/24 06/01/24 06/02/24 06/03/24
06:59 06:59 06:59 06:59
Intake Total 120 / 120 960 / 960 1380 / 1380
Output Total 100 / 100 640 / 640 300 / 300
Balance 20 / 20 320 / 320 1080 / 1080
Physical Exam
Physical Exam
General: No acute distress, AAOX3
Neck: Negative JVD
Heart: Regular, Negative S3 positive S1/S2, Negative S4, No murmur
Lungs: CTA b/l, negative wheezes/rales/rhonchi
Abd: Positive BS, NT/ND, neg rebound/rigidity/guarding
Ext: Negative cyanosis/clubbing/edema
Neuro: nonfocal
[2024-06-02] MEDS: LOW STRENGTH ASPIRIN 81 MG PO (09:43)
[2024-06-02] MEDS: COZAAR 50 MG PO (09:43)
[2024-06-02] MEDS: ORETIC 25 MG PO (09:43)
[2024-06-02] MEDS: PLAVIX 75 MG PO (09:43)
--- NOTE | 2024-06-02 10:54 | W.PN.HOSP.TC ---
Today's Communication/Plan
-
DC
Assessment / Plan
Assessment / Plan
Slurred Speech and balance issues leading to fall.
Patient with prior stroke and subtle right sided weakness which is no different.
MRI shows a new left pontine ischemic infarct. No hemorrhage.
Unclear etiology for recurrent stroke. The last stroke was attributed to uncontrolled hypertension which is now adequately controlled.
Continue with the telemetry-so far no events
MELO no thrombus noted
Cardiology arranging for 14-day monitor and if negative a Linq would be considered at that point
-Continue aspirin. Plavix added by neurology
- LDL 36-continue statins
- Physiatry input noted-cleared for home with therapies
Essential Hypertension
-Continue losartan and HCTZ
Hyperlipidemia
-Continue atorvastatin
DVT proph: SCDs
Code Status: Full Code
Will DC home today after seen by neurology
Total time of dc 32 min
Anticipated Discharge: Today
Subjective/Interval History
-
Date of Service: June 02, 2024
Improved speech and balance. Seen by metal finisher-cleared for home discharge.
Denies any new symptoms.
Finished his MELO-report pending.
Objective Data
-
Vital Signs:
Vital Signs
Temp Pulse Resp BP Pulse Ox
98.9 F 55 16 123/70 97
06/02/24 07:49 06/02/24 09:43 06/02/24 07:49 06/02/24 09:43 06/02/24 07:49
I&O
06/01/24 06/02/24 06/03/24
06:59 06:59 06:59
Intake Total 960 / 960 1380 / 1380
Output Total 640 / 640 300 / 300
Balance 320 / 320 1080 / 1080
Review of Systems
-
Respiratory: Denies Trouble Breathing
Cardiac: Denies Chest Pain or Palpitations
Neuro: Reports Weakness (subtle right sided weakness as prior); Denies Dizzy or Headache
Physical Exam
-
General: No Apparent Distress
HEENT: Moist Mucous Membranes
Respiratory: Clear to Auscultation
Cardiac: Regular Rhythm (no events on monitor) and S1/S2
Neuro: AO x 3; Negative No Motor Deficits ( Right-sided hemiparesis as before), Tremors, Slurred Speech or Facial Droop
Psych: Negative Confused
[2024-06-02 11:09] VITALS: BP 112/71
--- NOTE | 2024-06-02 11:28 | W.PN.NEURO.1 ---
Today's Communication / Plan
-
62-year-old right-handed male with history of uncontrolled hypertension who is a chronic smoker who was admitted with recurrent episodes of weakness gait ataxia and slurred speech
Plan: Continue dual antiplatelet therapy with aspirin 81 and Plavix 75 mg. Strict blood pressure management. Cardiology evaluation. PT/OT
Patient may be discharged when medically stable
Neuro Assessment/Plan
Assessment
64-year-old RH male who was admitted to the hospital with slurred speech unsteady gait and falls. With multiple lacunar infarcts subcortically in the left santiago radiator right basal ganglia and subcortical
Plan
Continue dual antiplatelet therapy.
Strict blood pressure control
Cardiology evaluation
PT/OT
Subjective/Objective
Subjective Data
Date of Service: June 01, 2024
Patient doing well following admission improved balance coordination. Needs minimal assist to stand and walk
Objective Data
Vital Signs
Temp Pulse Resp BP Pulse Ox
97.8 F 64 16 102/68 98
06/01/24 11:05 06/01/24 11:05 06/01/24 11:05 06/01/24 11:05 06/01/24 11:05
Lab Results
05/31/24 05:30
05/31/24 05:30
PT 13.9 Sec (11.4-14.6) 05/30/24 14:54
INR 1.07 05/30/24 14:54
APTT 32.4 Sec (23.4-35.0) 05/30/24 14:54
Sodium 139 mmol/L (135-145) 05/31/24 05:30
Potassium 3.9 mmol/L (3.5-5.1) 05/31/24 05:30
BUN 11 mg/dl (9-20) 05/31/24 05:30
Glucose 99 mg/dl (70-99) 05/31/24 05:30
Calcium 9.8 mg/dl (8.4-10.2) 05/31/24 05:30
LDL Cholesterol, Calc 36 mg/dl 05/31/24 05:30
Vitamin B12 227 pg/ml (239-931) L 05/31/24 05:30
Patient Allergies
No Known Allergies Allergy (Unverified 04/21/24 17:44)
Physical Exam
-
General: Well Developed, Well Nourished, No Apparent Distress and Comfortable
Eyes: Able to visualize OU and Unremarkable
HEENT: Normocephalic and Atraumatic
Neck: Full Range of Motion
Respiratory: Clear to Auscultation
Cardiac: Regular Rhythm and No Murmur
Skin: Unremarkable
Extremities: No Clubbing and No Cyanosis
Psych: Unremarkable
Extended Neurological Exam
Mood & Affect: Mood Unremarkable and Affect Unremarkable
Attention Span & Concentration: Awake, Alert, Interactive and No Difficulty with 2 Step Request
Memory: Unremarkable
Tremor: Hand Tremor Absent and Head Tremor Absent
Involuntary Movement: None
Speech: Quality Unremarkable and Quantity Unremarkable
Cranial Nerve II: Left Eye: Pupillary Reactivity Unremarkable and Pupillary Size Unremarkable
Cranial Nerve II: Right Eye: Pupillary Reactivity Unremarkable and Pupillary Size Unremarkable
Cranial Nerves III, IV, : Extraocular Movement: Extraocular Movement Left and Extraocular Movement Right
Cranial Nerve V: Facial Sensation: Intact to Light Touch
Cranial Nerve VII: Facial Symmetry: Normal Facial Symmetry
Cranial Nerve VIII: Hearing: Unremarkable Hearing to Normal Conversational Volume
Cranial Nerve XI: Shoulder Shrug: Unremarkable
Cranial Nerve XII: Tongue Protusion: Midline
Muscle Strength, Overall: Full Throughout
Muscle Bulk & Tone: Bulk Unremarkable
Pronator Drift: No Drift in Upper Extremities and No Drift in Lower Extremities
Deep Tendon Reflexes: Unremarkable Throughout
Cold Sensation: Unremarkable
Vibration Sensation: Unremarkable
Touch Sensation: Unremarkable
Coordination: [id number] Testing Unremarkable and Reaches for Objects without Difficulty
Babinski Sign: Present on Right
Gait & Station: Up from Seated Without Problem
Modified Juani Score (MRS)
-
Modified Baca Scale (mRS): Slight disability. Able to look after own affairs.
Score: 2
[2024-06-02 13:12] VITALS: BP 125/67; PULSE 60; O2SAT 100
--- NOTE | 2024-06-02 13:16 | W.DS.TRANS ---
DC Summary - Gaming Worker
-
Discharge Instructions:
Discharge Diagnosis/Procedures Speech disturbance with balance issues secondary
new left pontine infarct; recent to multiple
ischemic infarcts; hypertension
Diet 2 Gram Sodium
Activity As tolerated
Driving Restrictions Not until seen by your Dr
Bathing Restrictions None
Other Services PT,OT
Instructions:
Stand-Alone Forms:
Changes to Home Medications: Yes
Discharge Medications:
DC Medications w/original date entered in [email or web address]
aspirin 81 mg chewable tablet 81 mg PO DAILY cva #30 tabs 04/25/24
atorvastatin 40 mg tablet 40 mg PO QPM cva, cholesterol 30 days #30 tabs 05/09/24
hydrochlorothiazide 25 mg tablet 25 mg PO DAILY blood pressure 30 days #30 tabs 05/09/24
losartan 50 mg tablet 50 mg PO BID blood pressure 30 days #60 tabs 05/09/24
clopidogrel 75 mg tablet 75 mg PO DAILY #30 tabs 06/02/24
Home Medication Changes
New medication - Plavix
Pending Results: No
--- NOTE | 2024-06-02 13:39 | CM ---
Addendum entered by Niya Mejias 06/02/24 15:26:
Patient brother Jamison called, and asked for information. Patient stated that CM could talk to Jamison. CM provided updates and reviewed options. Out patient script provided.
Original Note:
Patient seen at bedside. Patient declined by Amador, patient declined SNF placement and states his sister will come to stay with him. CM spoke via text with housing case manager with outpatient therapy and she has communicated to the sister with disability
information. CM provided information for a place for mom to assist with any further possible placements and patient is to go to out patient therapy at his request. CM will continue to follow for discharge planning needs.
Plan; home with sister; outpatient therapy to follow
[2024-06-02 15:27] VITALS: BP 106/67
== END 2024-06-02 17:30 | disposition home or self-care (01) | DRG 65 ==
LOC: 3 WEST ACU 14:17
PROVIDERS: Physician Assistant Medical; ADMITTING PHYSICIAN Internal Medicine; CONSULT PHYSICIAN Nuclear Medicine Nuclear Cardiology; CONSULT PHYSICIAN Physical Medicine & Rehabilitation; CONSULT PHYSICIAN Psychiatry & Neurology Neurology; EMERGENCY PHYSICIAN Student in an Organized Health Care Education/Training Program; FAMILY PHYSICIAN Family Medicine
PROC: B24BZZ4 Ultrasonography of Heart with Aorta, Transesophageal (ICD-10-PCS; 2024-06-02)
DX: I63.40 Cerebral infarction due to embolism of unspecified cerebral artery (principal); I69.351 Hemiplegia and hemiparesis following cerebral infarction affecting right dominant side; R47.1 Dysarthria and anarthria; R29.703 NIHSS score 3; I10 Essential (primary) hypertension; E78.5 Hyperlipidemia, unspecified; F17.210 Nicotine dependence, cigarettes, uncomplicated; Z79.82 Long term (current) use of aspirin; Z79.899 Other long term (current) drug therapy; Z82.49 Family history of ischemic heart disease and other diseases of the circulatory system; Z91.81 History of falling
CPT/HCPCS: 70450; 70551; 80048; 80053; 80061; 82607; 82728; 82746; 82962; 84443; 85025; 85027; 85610; 85730; 92507; 92523; 92610; 93005; 93312; 93320; 93325; 97110; 97116; 97162; 97166; 97530; 97535; 99284

== ENCOUNTER 2024-06-23 12:38 | Outpatient (RCR) | payer BC, SELFPAY | END 2024-06-23 23:59 | disposition home or self-care (01) | LOC: ROT 12:38 | PROVIDERS: ATTENDING PHYSICIAN Physical Medicine & Rehabilitation; FAMILY PHYSICIAN Family Medicine | DX: I69.398 Other sequelae of cerebral infarction (principal); Z74.09 Other reduced mobility; Z73.6 Limitation of activities due to disability | CPT/HCPCS: 97110; 97112; 97116; 97164; 97168; 97530 ==

== ENCOUNTER 2024-06-30 10:59 | Day surgery (SDC) | payer BC, SELFPAY ==
--- NOTE | 2024-06-30 12:38 | ITS.CL.IMPLP ---
Nurse Ldr - Implant Loop
Implant Loop
Procedure Report:
ILR implant
Date of Procedure: 06/30/2024
Patient : [id number]
Procedure: Insertable Loop Recorder Implant.
Indication: Cryptogenic stroke
�
Implant: : [employer]; Model# LN Q11; Serial# [id number]
�
Technique: The patient was prepped and draped in the usual fashion.�Local anesthetic was applied to the left��prepectoral subcutaneous tissue. Preoperative sedation was given. A subcutaneous pocket was created with blunt dissection. Hemostasis was
excellent. The device was placed in the pocket. The skin was closed with steri-strips. The estimated blood��loss was minimal. There were no complications.
�
Final Programming: FVT 231 30/40 beats
����������������������������������VT 176 16 beats
����������������������������������Asystole 3 sec
����������������������������������Francisco Javier 30 bpm for 4 beats
����������������������������������AF On AF only.
�
Conclusion: Uncomplicated insertable loop implant.
�
Recommendation: Routine Reveal care.
�
cc: Dr. Carin Acharya
== END 2024-06-30 12:52 | disposition home or self-care (01) ==
LOC: CATH 10:59
PROVIDERS: ATTENDING PHYSICIAN Internal Medicine Cardiovascular Disease; FAMILY PHYSICIAN Family Medicine; OTHER PHYSICIAN Nuclear Medicine Nuclear Cardiology
DX: Z09 Encounter for follow-up examination after completed treatment for conditions other than malignant neoplasm (principal); Z86.73 Personal history of transient ischemic attack (TIA), and cerebral infarction without residual deficits; I10 Essential (primary) hypertension; E78.5 Hyperlipidemia, unspecified; F17.210 Nicotine dependence, cigarettes, uncomplicated; Z79.82 Long term (current) use of aspirin; Z79.02 Long term (current) use of antithrombotics/antiplatelets
CPT/HCPCS: 33285; C1764

== ENCOUNTER 2024-07-18 11:19 | Outpatient (RCR) | payer BC, SELFPAY | END 2024-07-18 23:59 | disposition home or self-care (01) | LOC: ROT 11:19 | PROVIDERS: ATTENDING PHYSICIAN Physical Medicine & Rehabilitation; FAMILY PHYSICIAN Family Medicine | DX: I69.398 Other sequelae of cerebral infarction (principal); Z73.6 Limitation of activities due to disability | CPT/HCPCS: 97110; 97112; 97116; 97530; 97537 ==

== ENCOUNTER 2024-07-31 11:36 | Outpatient (RCR) | payer BC, SELFPAY | END 2024-07-31 23:59 | disposition home or self-care (01) | LOC: ROT 11:36 | PROVIDERS: ATTENDING PHYSICIAN Physical Medicine & Rehabilitation; FAMILY PHYSICIAN Family Medicine | DX: I69.322 Dysarthria following cerebral infarction (principal); I69.328 Other speech and language deficits following cerebral infarction; I69.351 Hemiplegia and hemiparesis following cerebral infarction affecting right dominant side; Z73.6 Limitation of activities due to disability; Z74.09 Other reduced mobility | CPT/HCPCS: 97110; 97112; 97116; 97530; 97535 ==

== ENCOUNTER 2025-01-24 10:48 | Outpatient (RCR) | payer BC, SELFPAY | END 2025-01-24 23:59 | disposition home or self-care (01) | LOC: ROT 10:48 | PROVIDERS: ATTENDING PHYSICIAN Family Medicine | DX: I69.322 Dysarthria following cerebral infarction (principal); I69.328 Other speech and language deficits following cerebral infarction; Z73.6 Limitation of activities due to disability; I69.351 Hemiplegia and hemiparesis following cerebral infarction affecting right dominant side; Z74.09 Other reduced mobility | CPT/HCPCS: 97110; 97167; 97530; 97537 ==

== ENCOUNTER 2025-01-26 10:42 | Outpatient (RCR) | payer BC, SELFPAY | END 2025-01-26 23:59 | disposition home or self-care (01) | LOC: ROT 10:42 | PROVIDERS: ATTENDING PHYSICIAN Family Medicine | DX: I69.322 Dysarthria following cerebral infarction (principal); I69.328 Other speech and language deficits following cerebral infarction; Z73.6 Limitation of activities due to disability; I69.351 Hemiplegia and hemiparesis following cerebral infarction affecting right dominant side; Z74.09 Other reduced mobility | CPT/HCPCS: 97110; 97530 ==

== ENCOUNTER 2025-03-21 11:17 | Outpatient (RCR) | payer BC, SELFPAY | END 2025-03-21 23:59 | disposition home or self-care (01) | LOC: RPT 11:17 | PROVIDERS: ATTENDING PHYSICIAN Family Medicine | DX: I69.322 Dysarthria following cerebral infarction (principal); I69.328 Other speech and language deficits following cerebral infarction; Z73.6 Limitation of activities due to disability; I69.351 Hemiplegia and hemiparesis following cerebral infarction affecting right dominant side; Z74.09 Other reduced mobility | CPT/HCPCS: 97110; 97112; 97116; 97163; 97530 ==

== ENCOUNTER 2025-04-25 11:42 | Outpatient (RCR) | payer BC, SELFPAY | END 2025-04-25 23:59 | disposition home or self-care (01) | LOC: RPT 11:42 | PROVIDERS: ATTENDING PHYSICIAN Family Medicine | DX: I69.322 Dysarthria following cerebral infarction (principal); I69.328 Other speech and language deficits following cerebral infarction; Z73.6 Limitation of activities due to disability; I69.351 Hemiplegia and hemiparesis following cerebral infarction affecting right dominant side; Z74.09 Other reduced mobility | CPT/HCPCS: 97110; 97112; 97116; 97530; 97537 ==

== ENCOUNTER 2025-05-11 10:24 | Outpatient (RCR) | payer BC, SELFPAY | END 2025-05-11 23:59 | disposition home or self-care (01) | LOC: RPT 10:24 | PROVIDERS: ATTENDING PHYSICIAN Family Medicine | DX: I69.322 Dysarthria following cerebral infarction (principal); I69.328 Other speech and language deficits following cerebral infarction; Z73.6 Limitation of activities due to disability; I69.351 Hemiplegia and hemiparesis following cerebral infarction affecting right dominant side; Z74.09 Other reduced mobility | CPT/HCPCS: 97110; 97112; 97116; 97530; 97537 ==